=== PATIENT | male | born 1935 | race Caucasian/White ===

== ENCOUNTER 2017-12-22 06:17 | Outpatient (CLI) | payer MEDICARE ==
[~2017-12-22] VITALS: Ht 180.3 cm; Wt 97.1 kg
[~2017-12-22 06:17] MED LIST: ALDACTONE25 MG PO; ALFU10TA11 PO; AMLO5TAB2 PO; ASP81CT PO; ASPI-587 PO; ATR20T; BACL10TA PO; CA C1TAB26 PO; CIPR-225 PO; CLOP75TA PO; CLPD75T PO; CNC1KV IJ; DOXY100C2 PO; ENAL10TA PO; ENAL5TAB PO; FAMO20TA5; FERR325T18 PO; FISH OIL 1,2001 EAC1 PO; FISH1CAP15 PO; FLC100T1 PO; FLC1T PO; FLUT16SP22 NS; GABA-488 PO; GBPN100C PO; HYDR-3583 PO; KCL10CCR; LEVO500T69 PO; LORA10TA76 PO; METO100T5 PO; METO50TA7 PO; MULT-608; MULT1CAP27 PO; MUPI1OIN5 NS; NAPR220T76; NYST1000 PO; OMEG1CAP58 PO; OMEP40CA36 PO; OXYC-465 PO; OXYM15MI4 NS; PANT40TA PO; PRD20T PO; RNT150T PO; SIMV20TA3 PO; SIMV40TA4 PO; TMSL.4C PO; VITAMIN B12; ZINC50TA51 PO
[2017-12-22] MEDS ORDERED: ASPI-586 PO (15:07)
[2017-12-22] MEDS ORDERED: MULT1TAB69 PO (15:07)
[2017-12-22] MEDS ORDERED: FOLI1TAB24 PO (15:07)
[2017-12-22] MEDS ORDERED: OMEG-109 PO (15:07)
[2017-12-22] MEDS ORDERED: PANT40TA3 PO (15:07)
[2017-12-22] MEDS ORDERED: ALFU10TA11 PO (15:07)
[2017-12-22] MEDS ORDERED: CLOP75TA28 PO (15:07)
[2017-12-22] MEDS ORDERED: CHOL10003 PO (15:07)
[2017-12-22] MEDS ORDERED: METO-395 PO (15:07)
== END 2017-12-22 15:08 ==
LOC: PREOP 06:17
PROVIDERS: ATTEND Internal Medicine
DX: Z01.818 Encounter for other preprocedural examination (principal); R11.0 Nausea; Z80.0 Family history of malignant neoplasm of digestive organs

== ENCOUNTER 2017-12-26 08:19 | Day surgery (SDC) | payer MEDICARE ==
--- NOTE | 2017-12-19 13:32 | HISTORY AND PHYSICAL ---
DATE OF SERVICE: ESOPHAGOGASTRODUODENOSCOPY HISTORY AND PHYSICAL DATE OF ADMISSION: 12/26/2017 REASON FOR ADMISSION: EGD. HISTORY OF PRESENT ILLNESS: The patient is an 82-year-old white male seen in the office on 12/18/2017 for followup of coronary artery disease, hypertension and a past history of colon cancer. He reports for the past several months he has been having nausea and he cannot associate it with meal timing or medication and there have been no recent changes in his medication. He is fearful of gastric cancer as there is a family history for gastric cancer. He has had no associated dysphagia but over the past month, his appetite is decreased and his weight is down 2 pounds. He has not noted any melena or bright red blood per rectum. Risk factors for ulcer disease include dual antiplatelet therapy in the form of a baby aspirin and Plavix daily. He has had no anginal sounding symptoms. He is still walking on a regular basis with no dyspnea on exertion or at rest. PAST MEDICAL HISTORY: Significant for coronary artery disease. He had moderate nonobstructive disease, three vessel, on cardiac catheterization in 2011. He has had longstanding hypertension that has been well controlled and hyperlipidemia, maintained on statin therapy. He has a history of complete heart block requiring pacemaker placement several years ago. He has had one episode of congestive heart failure secondary to systolic dysfunction likely related to hypertension and small vessel ischemia. He had an ejection fraction once was down to 40% but when last checked he is back up to 50% range. MEDICATIONS ON ADMISSION: Include aspirin 81 mg daily, Plavix 75 mg daily, fish oil 1200 mg daily, enalapril 10 mg daily, vitamin D 1000 units daily, folic acid 1 mg daily, simvastatin 20 mg daily, amlodipine 5 mg daily, metoprolol 100 mg b.i.d., pantoprazole 40 mg daily, gabapentin 300 mg at bedtime. He has a B12 injection monthly for B12 deficiency and alfuzosin 10 mg daily. PHYSICAL EXAMINATION: GENERAL: Reveals a pleasant overweight white male, down 2 pounds in the past month. VITAL SIGNS: Blood pressure 136/80. NECK: Revealed no JVD, adenopathy or bruits. HEENT: Unremarkable. Sclerae are nonicteric. Oral cavity reveals Mallampati class 2 configuration. CHEST: Clear. CARDIOVASCULAR: Reveals a regular rate and rhythm without murmur, S3 or S4. ABDOMEN: Soft, supple. There is some mild epigastric discomfort to palpation without rebound or guarding. No mass or organomegaly is noted. Bowel sounds are positive. No bruits are appreciated. EXTREMITIES: Reveal no cyanosis, clubbing or edema. ASSESSMENT AND PLAN: For evaluation of nausea, epigastric pain to palpation, recent weight loss in an individual with risk factors for GI tract malignancy in addition to known past colon cancer as well as peptic ulcer disease due to dual antiplatelet therapy, he is set up for EGD on the of this month. Prep instructions were given. He is to hold aspirin and Plavix for a week prior to the procedure and continue his other medications. Job ID: [id number] DocumentID: [id number] Dictated Date: 12/18/2017 16:26:35 Soaking Tank Worker Date: 12/18/2017 16:49:10 Dictated By: ARMINDA LAUREANO MD
[~2017-12-26] VITALS: Ht 180.3 cm; Wt 97.1 kg
[~2017-12-26 08:19] MED LIST changes: +ASPI-586 PO; +CHOL10003 PO; +CLOP75TA28 PO; +FOLI1TAB24 PO; +METO-395 PO; +MULT1TAB69 PO; +OMEG-109 PO; +PANT40TA3 PO
--- OUTSIDE RECORDS SUMMARY | 2017-12-26 08:22 | XMS REPORT ---
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
[2017-12-26] MEDS ORDERED: LIDOCAINE JELLY 2% (XYLOCAINE) 5 ML TUBE MM PRN (08:30)
[2017-12-26] MEDS ORDERED: HURRICAINE EXT TUBE (BENZOCAINE) XX PRN (08:30)
[2017-12-26] MEDS ORDERED: MIDAZOLAM 2 MG/2 ML (VERSED) VIAL IVP PRN (08:30)
[2017-12-26] MEDS ORDERED: D5 LR IV SOLUTION 1,000 ML IV ONE ×2 (08:35→09:15)
--- NOTE | 2017-12-26 08:39 | Pre-Op Note & Conscious Sedat ---
Pre-Operative Progress Note H&P Reviewed The H&P was reviewed, patient examined and no changes noted. Date H&P Reviewed: Dec 26, 2017 Time H&P Reviewed: 08:35 Conscious Sedation Pre-Proced ASA Class: 2 Airway Mallampati Classification: ([place] appropriate class) I. II. III, IV Lungs Heart ASA score ASA 1: a normal healthy patient ASA 2: a patient with a mild systemic disease (mid diabetes, controlled hypertension, obesity ASA 3: a patient with a severe systemic disease that limits activity (angina , COPD, prior Myocardial infarction) ASA 4: a patient with an incapacitating disease that is a constant threat to life (CHF, renal failure) ASA 5: a moribund patient not expected to survive 24 hrs. (ruptured aneurysm) ASA 6: a declared brain patient whose organs are being harvested. For emergent operations, add the letter E after the classification Grade 2 Sedation Plan: Analgesia, Amnesia, Plan communicated to team members, Discussed options with patient/fam, Discussed risks with patient/fam Note The patient is an appropriate candidate to undergo the planned procedure, sedation, and anesthesia. The patient immediately re-assessed prior to indication. ARMINDA LAUREANO MD Dec 26, 2017 08:39
[2017-12-26 09:13] VITALS: BP 141/82
[2017-12-26] MEDS ORDERED: MIDAZOLAM 2 MG/2 ML (VERSED) VIAL ONE ×2 (09:28)
[2017-12-26] MEDS ORDERED: fentaNYL INJECTION 100 MCG/2 ML AMP ONE (09:28)
[2017-12-26] MEDS ORDERED: HURRICAINE EXT TUBE (BENZOCAINE) ONE (09:28)
[2017-12-26] MEDS ORDERED: LIDOCAINE JELLY 2% (XYLOCAINE) 5 ML TUBE ONE (09:29)
[2017-12-26] MEDS: fentaNYL INJECTION 100 MCG/2 ML AMP IVP PRN ×2 (09:38→09:50)
[2017-12-26] MEDS ORDERED: FLUC200T PO (09:57)
[2017-12-26] MEDS ORDERED: methylPREDNISolone 40 MG/ML (DEPO MEDROL) VIAL IM ONE (10:00)
[2017-12-26] MEDS ORDERED: LIDOCAINE PF 1% 2 ML AMP INJ ONE (10:00)
[2017-12-26] MEDS ORDERED: LIDOCAINE PF 1% 2 ML AMP ONE (10:21)
[2017-12-26 10:46] VITALS: BP 140/82
[2017-12-26 10:50] VITALS: BP 140/82
--- NOTE | 2017-12-26 15:12 | OPERATIVE REPORT ---
DATE OF SERVICE: 12/26/2017 ASSESSMENT: Post EGD evaluation done today. The patient had findings compatible with candidal esophagitis. I reviewed his office records as well as electronic medical record noting that he does have a history of insulin resistance. His last blood sugar in our office was 110 in 03/2017 with an A1c of 5.6%. Since that time, he is put on at least 6 pounds and does have a BMI in the 30 to 35 range compatible with stage I obesity. I discussed my concerns in regards to the development of diabetes considering candidal esophagitis. The patient does not have any past history of compromised immune system and has not had any problems with infection over the winter time. He has been eating ice cream nightly, which is largely responsible for his weight gain and discussed the fact that his esophagitis raises the possibility of development of type 2 diabetes. Otherwise, he has an average diet that is still a little higher in carbohydrate and lower in whole foods than ideal. This was discussed in layman's terms and advised that he significantly cut back on his ice cream intake and increase fruits and vegetables as well as decreasing simple sugars and portion controlling other carbohydrates. Discussed a reasonable goal of 1 to 2-pound weight loss per month. He already exercises on a regular basis, walking several miles daily. He is to return to the office next week for a fasting basic metabolic panel and CBC with further recommendations pending blood test evaluation. In discussing diabetic diet and obesity issues with review of his medical record a little over 15 minutes extra care time spent today. This is separate from his EGD evaluation as well as the injection he received for supratrochanteric bursitis, which was detailed on his EGD report. Job ID: [id number] DocumentID: [id number] Dictated Date: 12/26/2017 11:09:55 Weapons Engineer Date: 12/26/2017 15:11:43 Dictated By: ARMINDA LAUREANO MD
--- NOTE | 2017-12-26 16:13 | OPERATIVE REPORT ---
DATE OF SERVICE: REPORT TITLE: EGD Summary. INDICATION FOR THE PROCEDURE: Dysphagia. The patient was placed in left lateral decubitus position. The endoscope was inserted in the oral cavity and under direct visualization, the esophagus was intubated. The endoscope was passed down the esophagus through the stomach and second portion of the duodenum. Careful inspection was made as the endoscope was withdrawn. The patient tolerated the procedure well. FINDINGS: The oral cavity was unremarkable as was the arytenoid aperture, true and false vocal folds. Beginning in the proximal esophagus, where patchy areas of white exudate on minimally erythematous base extending to the distal esophagus. No ulcerations were noted and there was no evidence for hiatal hernia formation or erosive esophagitis. The cardia and fundus of the stomach were unremarkable. There were some linear areas of erythema in the antrum, but the patient had been on aspirin and Plavix and all of that had been held. Biopsy was not obtained. There was no ulceration noted as risk deemed outweighed the potential benefits. The pylorus, pyloric channel, the duodenal bulb and second portion of duodenum were unremarkable with no evidence for duodenitis or ulceration. A/P 1. Findings compatible with candidal esophagitis. Brushing was obtained and submitted for culture and sensitivity. Mild antral gastritis was noted without evidence for peptic ulcer disease or erosive esophagitis. Diflucan will be initiated 200 mg daily and we will hold Plavix due to medication interaction for the 2 week period that the patient is on antifungal therapy. The patient also complained of left lateral hip pain. He cannot sleep on that side at night. He has tried ice and is not a candidate for nonsteroidal medication. Tylenol has been ineffective. He had point tenderness over the left supratrochanteric bursa, compatible with supratrochanteric bursitis. There was no warmth or erythema noted over the area. Hip range of motion was normal. After sterilely cleaning the area, he was given 40 mg of Depo-Medrol and 0.5 mL of lidocaine in a left supratrochanteric bursal injection. Expectations were discussed with the patient, advised gentle stretching and p.r.n. ice. Job ID: [id number] DocumentID: [id number] Dictated Date: 12/26/2017 10:10:44 Director Of Scientific Research Date: 12/26/2017 13:36:33 Dictated By: ARMINDA LAUREANO MD
== END 2017-12-26 10:55 | disposition home or self-care (01) ==
LOC: ENDO 08:19
PROVIDERS: ATTEND Internal Medicine
DX: B37.81 Candidal esophagitis (principal); K29.70 Gastritis, unspecified, without bleeding; M70.62 Trochanteric bursitis, left hip; I25.10 Atherosclerotic heart disease of native coronary artery without angina pectoris; I10 Essential (primary) hypertension; E78.5 Hyperlipidemia, unspecified; Z95.0 Presence of cardiac pacemaker; Z79.02 Long term (current) use of antithrombotics/antiplatelets; Z79.82 Long term (current) use of aspirin; Z79.899 Other long term (current) drug therapy
CPT/HCPCS: 87101

== ENCOUNTER 2018-01-29 17:02 | Emergency (ER) | payer MEDICARE ==
[~2018-01-29] VITALS: Ht 180.3 cm; Wt 96.2 kg
[~2018-01-29 17:02] MED LIST changes: +FLUC200T PO
--- OUTSIDE RECORDS SUMMARY | 2018-01-29 17:08 | XMS REPORT | Continuity of Care Document ---
Author Author [facility] Organization [facility] Address Unknown Phone Unavailable Allergies Active Description Code Type Severity Reaction Onset Reported/Identified Relationship to Patient Clinical Status Yes amoxicillin [id number] Drug Allergy Unknown N/A 01/16/2010 Medications There is no data. Problems Date Dx Coded Attending Type Code Diagnosis Diagnosed By 01/17/2010 Ot 272.4 HYPERLIPIDEMIA NEC/NOS 01/17/2010 Ot 401.9 HYPERTENSION NOS 01/17/2010 Ot 414.01 CORONARY ATHEROSCLEROSIS OF [place] CORON 01/17/2010 Ot 426.0 ATRIOVENT BLOCK COMPLETE 01/17/2010 Ot 426.3 LEFT BB BLOCK NEC 01/17/2010 Ot 428.0 CONGESTIVE HEART FAILURE NOS 01/17/2010 Ot 433.10 CAROTID ARTERY OCCLUSION W O CEREBRAL IN 09/20/2010 Ot 305.1 09/20/2010 Ot 401.9 09/20/2010 Ot 722.52 09/20/2010 Ot V45.01 09/20/2010 Ot V57.1 02/07/2011 Ot 368.8 02/07/2011 Ot 412 02/07/2011 Ot 414.01 02/07/2011 Ot 780.4 02/07/2011 Ot 780.79 07/19/2011 Ot 211.3 BENIGN NEOPLASM LG BOWEL 07/19/2011 Ot 553.3 DIAPHRAGMATIC HERNIA 07/19/2011 Ot 787.20 DYSPHAGIA, UNSPECIFIED 07/19/2011 Ot V16.0 FAMILY HX-GI MALIGNANCY 08/16/2011 Ot 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 08/16/2011 Ot 211.3 BENIGN NEOPLASM LG BOWEL 08/16/2011 Ot 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 08/16/2011 Ot 401.9 HYPERTENSION NOS 08/16/2011 Ot 414.01 CORONARY ATHEROSCLEROSIS OF [place] CORON 08/16/2011 Ot V12.72 PERSONAL HISTORY OF COLONIC POLYPS 08/16/2011 Ot V45.01 CARDIAC PACEMAKER IN SITU 09/11/2011 Ot 532.10 AC DUODENAL ULCER W PERF 09/11/2011 Ot 569.5 INTESTINAL ABSCESS 09/11/2011 Ot 574.00 CHOLELITH W AC CHOLECYST 09/11/2011 Ot V45.89 POSTSURGICAL STATES NEC 09/11/2011 Ot V64.41 LAPAROSCOPIC SURGICAL PROC CONVERTED TO 02/15/2012 Ot 272.4 HYPERLIPIDEMIA NEC/NOS 02/15/2012 Ot 401.9 HYPERTENSION NOS 02/15/2012 Ot 414.01 CORONARY ATHEROSCLEROSIS OF [place] CORON 02/15/2012 Ot 426.0 ATRIOVENT BLOCK COMPLETE 02/15/2012 Ot 428.0 CONGESTIVE HEART FAILURE NOS 02/15/2012 Ot 780.2 SYNCOPE AND COLLAPSE 02/15/2012 Ot 794.30 ABN CARDIOVASC STUDY NOS 02/15/2012 Ot V10.05 HX OF COLONIC MALIGNANCY 02/15/2012 Ot V45.01 CARDIAC PACEMAKER IN SITU 02/15/2012 Ot V58.63 LONG-TERM( CURRENT)USE OF ANTIPLATELET/AN 02/15/2012 Ot V58.66 LONG-TERM ( CURRENT) USE OF ASPIRIN 02/15/2012 Ot V58.69 OTH MED,LT, CURRENT USE 07/27/2012 Ot 530.81 ESOPHAGEAL REFLUX 07/27/2012 Ot 562.10 DIVERTICULOSIS COLON (W/O MENT OF HEMORR 07/27/2012 Ot V10.05 HX OF COLONIC MALIGNANCY 07/27/2012 Ot V58.63 LONG-TERM( CURRENT)USE OF ANTIPLATELET/AN 07/27/2012 Ot V58.66 LONG-TERM ( CURRENT) USE OF ASPIRIN 07/27/2012 Ot V58.69 OTH MED,LT, CURRENT USE 07/27/2012 Ot V76.51 SCREEN MAL NEOP-COLON 07/20/2013 ARMINDA LAUREANO MD Ot 535.50 UNSP GASTRITIS GASTRODUODENITIS W/O ME 07/20/2013 ARMINDA LAUREANO MD Ot V58.63 LONG-TERM(CURRENT)USE OF ANTIPLATELET/AN 07/20/2013 ARMINDA LAUREANO MD Ot V58.66 LONG-TERM (CURRENT) USE OF ASPIRIN 04/05/2014 ARMINDA LAUREANO MD Ot 211.3 BENIGN NEOPLASM LG BOWEL 04/05/2014 ARMINDA LAUREANO MD Ot 562.10 DIVERTICULOSIS COLON (W/O MENT OF HEMORR 04/05/2014 ARMINDA LAUREANO MD Ot V10.05 HX OF COLONIC MALIGNANCY 11/01/2014 Ot 272.4 11/01/2014 Ot 397.0 11/01/2014 Ot 424.0 11/01/2014 Ot 429.3 11/01/2014 Ot 780.2 11/01/2014 Ot V72.81 11/01/2014 Ot V74.8 11/01/2014 Ot 368.8 11/01/2014 Ot 412 11/01/2014 Ot 414.01 11/01/2014 Ot 780.4 11/01/2014 Ot 780.79 11/01/2014 Ot 414.00 11/01/2014 Ot 786.50 11/01/2014 Ot 397.0 11/01/2014 Ot 414.00 11/01/2014 Ot 424.0 11/01/2014 Ot 429.3 11/01/2014 Ot 786.50 11/01/2014 Ot 211.3 11/01/2014 Ot V72.63 11/01/2014 Ot V74.8 11/01/2014 Ot 789.01 11/01/2014 Ot V45.72 11/01/2014 Ot 599.0 11/01/2014 Ot 401.9 11/01/2014 Ot 414.00 11/01/2014 Ot 427.1 11/01/2014 Ot 428.0 11/01/2014 Ot 401.9 11/01/2014 Ot 414.00 11/01/2014 Ot 427.1 11/01/2014 Ot 428.0 11/01/2014 Ot 272.4 11/01/2014 Ot 401.9 11/01/2014 Ot 414.01 11/01/2014 Ot 426.2 11/01/2014 Ot 428.0 11/01/2014 Ot 780.2 11/01/2014 Ot 791.9 11/01/2014 Ot 794.39 11/01/2014 Ot V72.63 11/01/2014 Ot V72.81 11/01/2014 Ot V72.84 11/01/2014 Ot 397.0 11/01/2014 Ot 401.9 11/01/2014 Ot 424.0 11/01/2014 Ot 426.3 11/01/2014 Ot 428.0 11/01/2014 Ot V45.01 11/01/2014 GEORGI NORTON, ARMINDA [place] Ot V72.84 11/01/2014 NARAYAN NORTON, VERONICA Javed Ot 272.4 11/01/2014 VERONICA BUSCH MD Ot 401.9 11/01/2014 VERONICA BUSCH MD Ot 414.00 11/01/2014 VERONICA BUSCH MD Ot 426.0 11/01/2014 VERONICA BUSCH MD Ot 426.3 11/01/2014 VERONICA BUSCH MD Ot 433.10 11/01/2014 ARMINDA LAUREANO MD Ot 780.8 11/01/2014 ARMINDA LAUREANO MD Ot 791.9 11/01/2014 ARMINDA LAUREANO MD Ot V72.84 11/23/2014 VERONICA BUSCH MD Ot 272.4 11/23/2014 VERONICA BUSCH MD Ot 401.9 11/23/2014 VERONICA BUSCH MD Ot 414.00 11/23/2014 VERONICA BUSCH MD Ot 428.0 11/23/2014 VERONICA BUSCH MD Ot 433.10 01/12/2015 DANICA HANSON MD Ot 401.9 HYPERTENSION NOS 01/12/2015 DANICA HANSON MD Ot 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 01/12/2015 DANICA HANSON MD Ot 722.52 LUMB/LUMBOSAC DISC DEGEN 01/12/2015 DANICA HANSON MD Ot 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 01/12/2015 DANICA HANSON MD, Ot V45.4 ARTHRODESIS STATUS 01/12/2015 DANICA HANSON MD Ot V58.66 LONG-TERM (CURRENT) USE OF ASPIRIN 01/12/2015 DANICA HANSON MD, Ot V58.69 OT MED,LT,CURRENT USE 05/30/2015 DANICA HANSON MD Ot 401.9 HYPERTENSION NOS 05/30/2015 DANICA HANSON MD Ot 412 OLD MYOCARDIAL INFARCT 05/30/2015 DANICA HANSON MD Ot 427.9 CARDIAC DYSRHYTHMIA NOS 05/30/2015 DANICA HANSON MD Ot 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, LUMBAR REGION, W NEUROG 05/30/2015 DANICA HANSNO MD Ot V10.05 HX OF COLONIC MALIGNANCY 05/30/2015 DANICA HANSON MD Ot V45.01 CARDIAC PACEMAKER IN SITU 06/04/2015 SLADE NORTON, ANEUDY Cagle Ot 564.00 UNSPEC CONSTIPATION 06/04/2015 SLADE NORTON, ANEUDY Cagle Ot 599.0 URIN TRACT INFECTION NOS 07/21/2015 DANICA HANSON MD Ot 401.9 07/21/2015 DANICA HANSON MD Ot 412 07/21/2015 DANICA HANSON MD Ot 427.9 07/21/2015 DANICA HANSON MD Ot 724.03 07/21/2015 DANICA HANSON MD Ot V10.05 07/21/2015 DANICA HANSON MD Ot V45.01 10/10/2015 Ot 789.01 10/10/2015 Ot V45.72 06/12/2016 VERONICA BUSCH MD Ot E78.5 HYPERLIPIDEMIA, UNSPECIFIED 06/12/2016 VERONICA BUSCH MD Ot I10 ESSENTIAL (PRIMARY) HYPERTENSION 06/12/2016 VERONICA BUSCH MD Ot I25.10 ATHSCL HEART DISEASE OF [place] CORONARY 06/12/2016 VERONICA BUSCH MD Ot I27.2 OTHER SECONDARY PULMONARY HYPERTENSION 06/12/2016 VERONICA BUSCH MD Ot I44.2 ATRIOVENTRICULAR BLOCK, COMPLETE 06/12/2016 VERONICA BUSCH MD Ot I50.22 CHRONIC SYSTOLIC (CONGESTIVE) HEART FAIL 06/12/2016 VERONICA BUSCH MD Ot R07.89 OTHER CHEST PAIN 06/12/2016 VERONICA BUSCH MD Ot R94.39 ABNORMAL RESULT OF OTHER CARDIOVASCULAR 06/12/2016 VERONICA BUSCH MD Ot Z79.899 OTHER OVERHEAD WORKER (CURRENT) DRUG THERAPY 06/12/2016 VERONICA BUSCH MD Ot Z95.0 PRESENCE OF CARDIAC PACEMAKER 06/19/2016 VERONICA BUSCH MD Ot E78.5 HYPERLIPIDEMIA, UNSPECIFIED 06/19/2016 VERONICA BUSCH MD Ot I10 ESSENTIAL (PRIMARY) HYPERTENSION 06/19/2016 VERONICA BUSCH MD Ot I25.10 ATHSCL HEART DISEASE OF [place] CORONARY 06/19/2016 VERONICA BUSCH MD Ot I50.9 HEART FAILURE, UNSPECIFIED 06/19/2016 VERONICA BUSCH MD Ot R07.89 OTHER CHEST PAIN 06/26/2016 VERONICA BUSCH MD Ot E78.5 HYPERLIPIDEMIA, UNSPECIFIED 06/26/2016 VERONICA BUSCH MD Ot I10 ESSENTIAL (PRIMARY) HYPERTENSION 06/26/2016 VERONICA BUSCH MD Ot I25.10 ATHSCL HEART DISEASE OF [place] CORONARY 06/26/2016 VERONICA BUSCH MD Ot I50.9 HEART FAILURE, UNSPECIFIED 06/26/2016 VERONICA BUSCH MD Ot R07.89 OTHER CHEST PAIN 09/04/2016 ARMINDA LAUREANO MD Ot Z01.818 ENCOUNTER FOR OTHER PREPROCEDURAL EXAMIN 09/04/2016 ARMINDA LAUREANO MD Ot Z08 ENCNTR FOR FOLLOW-UP EXAM AFTER TRTMT FO 09/04/2016 ARMINDA LAUREANO MD Ot Z85.038 PERSONAL HISTORY OF MALIGNANT NEOPLASM O 09/06/2016 Ot 414.00 CORON ATHEROSCLER NOS TYPE VESSEL, NATIV 09/06/2016 Ot 786.50 CHEST PAIN NOS 09/06/2016 Ot 211.3 BENIGN NEOPLASM LG BOWEL 09/06/2016 Ot V72.63 PRE- PROCEDURAL LABORATORY EXAMINATION 09/06/2016 Ot V74.8 SCREEN- BACTERIAL DIS NEC 09/06/2016 Ot 789.01 ABDOMINAL PAIN, RIGHT UPPER QUADRANT 09/06/2016 Ot V45.72 ACQRD ABSENCE INTESTINE - LARGE/SMALL 09/06/2016 Ot 599.0 URIN TRACT INFECTION NOS 09/06/2016 Ot 401.9 HYPERTENSION NOS 09/06/2016 Ot 414.00 CORON ATHEROSCLER NOS TYPE VESSEL, NATIV 09/06/2016 Ot 427.1 PAROX VENTRIC TACHYCARD 09/06/2016 Ot 428.0 CONGESTIVE HEART FAILURE NOS 09/06/2016 Ot 401.9 HYPERTENSION NOS 09/06/2016 Ot 414.00 CORON ATHEROSCLER NOS TYPE VESSEL, NATIV 09/06/2016 Ot 427.1 PAROX VENTRIC TACHYCARD 09/06/2016 Ot 428.0 CONGESTIVE HEART FAILURE NOS 09/06/2016 Ot 272.4 HYPERLIPIDEMIA NEC/NOS 09/06/2016 Ot 401.9 HYPERTENSION NOS 09/06/2016 Ot 414.01 CORONARY ATHEROSCLEROSIS OF [place] CORON 09/06/2016 Ot 426.2 LEFT BB HEMIBLOCK 09/06/2016 Ot 428.0 CONGESTIVE HEART FAILURE NOS 09/06/2016 Ot 780.2 SYNCOPE AND COLLAPSE 09/06/2016 Ot 791.9 ABN URINE FINDINGS NEC 09/06/2016 Ot 794.39 ABN CARDIOVASC STUDY NEC 09/06/2016 Ot V72.63 PRE- PROCEDURAL LABORATORY EXAMINATION 09/06/2016 Ot V72.81 EXAM-PRE- OPERATIVE CARDIOVASCULAR 09/06/2016 Ot V72.84 EXAM PRE- OPERATIVE NOS 09/06/2016 Ot 397.0 TRICUSPID VALVE DISEASE 09/06/2016 Ot 401.9 HYPERTENSION NOS 09/06/2016 Ot 424.0 MITRAL VALVE DISORDER 09/06/2016 Ot 426.3 LEFT BB BLOCK NEC 09/06/2016 Ot 428.0 CONGESTIVE HEART FAILURE NOS 09/06/2016 Ot V45.01 CARDIAC PACEMAKER IN SITU 09/06/2016 ARMINDA LAUREANO MD Ot V72.84 EXAM PRE-OPERATIVE NOS 09/06/2016 VERONICA BUSCH MD Ot 272.4 HYPERLIPIDEMIA NEC/NOS 09/06/2016 VERONICA BUSCH MD Ot 401.9 HYPERTENSION NOS 09/06/2016 VERONICA BUSCH MD Ot 414.00 CORON ATHEROSCLER NOS TYPE VESSEL, NATIV 09/06/2016 VERONICA BUSCH MD Ot 426.0 ATRIOVENT BLOCK COMPLETE 09/06/2016 VERONICA BUSCH MD Ot 426.3 LEFT BB BLOCK NEC 09/06/2016 VERONICA BUSCH MD Ot 433.10 CAROTID ARTERY OCCLUSION W O CEREBRAL IN 09/06/2016 ARMINDA LAUREANO MD Ot 780.8 GENERALIZED HYPERHIDROSIS 09/06/2016 ARMINDA LAUREANO MD Ot 791.9 ABN URINE FINDINGS NEC 09/06/2016 ARMINDA LAUREANO MD Ot V72.84 EXAM PRE-OPERATIVE NOS 09/06/2016 VERONICA BUSCH MD Ot 272.4 HYPERLIPIDEMIA NEC/NOS 09/06/2016 VERONICA BUSCH MD Ot 401.9 HYPERTENSION NOS 09/06/2016 VERONICA BUSCH MD Ot 414.00 CORON ATHEROSCLER NOS TYPE VESSEL, [place] 09/06/2016 VERONICA BUSCH MD Ot 428.0 CONGESTIVE HEART FAILURE NOS 09/06/2016 VERONICA BUSCH MD Ot 433.10 CAROTID ARTERY OCCLUSION W O CEREBRAL IN 09/06/2016 VERONICA BUSCH MD Ot 272.4 HYPERLIPIDEMIA NEC/NOS 09/06/2016 VERONICA BUSCH MD Ot 401.9 HYPERTENSION NOS 09/06/2016 VERONICA BUSCH MD Ot 414.00 CORON ATHEROSCLER NOS TYPE VESSEL, NATIV 09/06/2016 VERONICA BUSCH MD Ot 428.0 CONGESTIVE HEART FAILURE NOS 09/06/2016 VERONICA BUSCH MD Ot 433.10 CAROTID ARTERY OCCLUSION W O CEREBRAL IN 09/06/2016 DANICA HANSON MD Ot 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, LUMBAR REG, W/OUT NEURO 09/06/2016 DANICA HANSON MD Ot V72.84 EXAM PRE-OPERATIVE NOS 09/06/2016 DANICA HANSON MD Ot V74.8 SCREEN-BACTERIAL DIS NEC 09/06/2016 VERONICA BUSCH MD, Ot E78.5 HYPERLIPIDEMIA, UNSPECIFIED 09/06/2016 VERONICA BUSCH MD Ot I10 ESSENTIAL (PRIMARY) HYPERTENSION 09/06/2016 VERONICA BUSCH MD, Ot I25.10 ATHSCL HEART DISEASE OF [place] CORONARY 09/06/2016 VERONICA BUSCH MD Ot I50.9 HEART FAILURE, UNSPECIFIED 09/06/2016 VERONICA BUSCH MD Ot R07.89 OTHER CHEST PAIN 09/06/2016 ARMINDA LAUREANO MD Ot D12.0 BENIGN NEOPLASM OF [place] 09/06/2016 ARMINDA LAUREANO MD, Ot K57.30 DVRTCLOS OF LG INT W/O PERFORATION OR AB 09/06/2016 ARMINDA LAUREANO MD, Ot N40.0 BENIGN PROSTATIC HYPERPLASIA WITHOUT LOW 09/06/2016 ARMINDA LAUREANO MD Ot Z12.11 ENCOUNTER FOR SCREENING FOR MALIGNANT NE 09/06/2016 ARMINDA LAUREANO MD Ot Z85.038 PERSONAL HISTORY OF MALIGNANT NEOPLASM O 09/06/2016 ARMINDA LAUREANO MD Ot 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 09/12/2016 ARMINDA LAUREANO MD, Ot D12.0 BENIGN NEOPLASM OF [place] 09/12/2016 ARMINDA LAUREANO MD, Ot K57.30 DVRTCLOS OF LG INT W/O PERFORATION OR AB 09/12/2016 ARMINDA LAUREANO MD, Ot N40.0 BENIGN PROSTATIC HYPERPLASIA WITHOUT LOW 09/12/2016 ARMINDA LAUREANO MD Ot Z12.11 ENCOUNTER FOR SCREENING FOR MALIGNANT NE 09/12/2016 ARMINDA LAUREANO MD, Ot Z85.038 PERSONAL HISTORY OF MALIGNANT NEOPLASM O 09/12/2016 ARMINDA LAUREANO MD Ot 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 12/23/2017 ARMINDA LAUREANO MD Ot R11.0 NAUSEA 12/23/2017 ARMINDA LAUREANO MD Ot Z01.818 ENCOUNTER FOR OTHER PREPROCEDURAL EXAMIN 12/23/2017 ARMINDA LAUREANO MD Ot Z80.0 FAMILY HISTORY OF MALIGNANT NEOPLASM OF 12/26/2017 ARMINDA LAUREANO MD Ot B37.81 CANDIDAL ESOPHAGITIS 12/26/2017 ARMINDA LAUREANO MD Ot E78.5 HYPERLIPIDEMIA, UNSPECIFIED 12/26/2017 ARMINDA LAUREANO MD Ot I10 ESSENTIAL (PRIMARY) HYPERTENSION 12/26/2017 ARMINDA LAUREANO MD Ot I25.10 ATHSCL HEART DISEASE OF [place] CORONARY 12/26/2017 ARMINDA LAUREANO MD Ot K29.70 GASTRITIS, UNSPECIFIED, WITHOUT BLEEDING 12/26/2017 ARMINDA LAUREANO MD Ot M70.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 BURSITIS, LEFT HIP 12/26/2017 ARMINDA LAUREANO MD Ot Z79.02 HALFWAY (CURRENT) USE OF ANTITHROMBOTI 12/26/2017 ARMINDA LAUREANO MD Ot Z79.82 HALFWAY (CURRENT) USE OF ASPIRIN 12/26/2017 ARMINDA LAUREANO MD Ot Z79.899 OTHER HALFWAY (CURRENT) DRUG THERAPY 12/26/2017 ARMINDA LAUREANO MD Ot Z95.0 PRESENCE OF CARDIAC PACEMAKER 12/29/2017 ARMINDA LAUREANO MD Ot B37.81 CANDIDAL ESOPHAGITIS 12/29/2017 ARMINDA LAUREANO MD Ot E78.5 HYPERLIPIDEMIA, UNSPECIFIED 12/29/2017 ARMINDA LAUREANO MD Ot I10 ESSENTIAL (PRIMARY) HYPERTENSION 12/29/2017 ARMINDA LAUREANO MD Ot I25.10 ATHSCL HEART DISEASE OF [place] CORONARY 12/29/2017 ARMINDA LAUREANO MD Ot K29.70 GASTRITIS, UNSPECIFIED, WITHOUT BLEEDING 12/29/2017 ARMINDA LAUREANO MD Ot M70.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 BURSITIS, LEFT HIP 12/29/2017 ARMINDA LAUREANO MD Ot Z79.02 HALFWAY (CURRENT) USE OF ANTITHROMBOTI 12/29/2017 ARMINDA LAUREANO MD Ot Z79.82 HALFWAY (CURRENT) USE OF ASPIRIN 12/29/2017 ARMINDA LAUREANO MD Ot Z79.899 OTHER HALFWAY (CURRENT) DRUG THERAPY 12/29/2017 ARMINDA LAUREANO MD Ot Z95.0 PRESENCE OF CARDIAC PACEMAKER Procedures Code Description Performed By Performed On 37.72 INITIAL INSERT TRANS LEADS INTO ATRIUM 01/16/2010 37.83 INITIAL INSERTION OF DUAL- CHAMBER DEVICE 01/16/2010 89.45 PACEMAKER RATE CHECK 01/17/2010 17.33 LAPAROSCOPIC RIGHT HEMICOLECTOMY 08/13/2011 45.93 [id number] BOWEL NEC 08/13/2011 54.4 DESTRUCT PERITONEAL TISS 08/13/2011 38.93 VENOUS CATHETERIZATION NEC 08/30/2011 44.42 SUTURE DUODEN ULCER SITE 08/30/2011 51.23 LAPAROSCOPIC CHOLECYSTECTOMY 08/30/2011 87.53 INTRAOPER CHOLANGIOGRAM 08/30/2011 Results Test Result Range Automated blood complete blood count (hemogram) panel - 06/12/16 07:24 Blood leukocytes automated count (number/volume) 7.5 10*3/uL 4.3-11.0 Blood erythrocytes automated count (number/volume) 5.28 10*6/uL 4.35-5.85 Venous blood hemoglobin measurement (mass/volume) 15.8 g/dL 13.3-17.7 Blood hematocrit (volume fraction) 48 % 40-54 Automated erythrocyte mean corpuscular volume 90 [foz_us] 80-99 Automated erythrocyte mean corpuscular hemoglobin (mass per erythrocyte) 30 pg 25-34 Automated erythrocyte mean corpuscular hemoglobin concentration measurement ( mass/volume) 33 g/dL 32-36 Automated erythrocyte distribution width ratio 15.9 % 10.0-14.5 Automated blood platelet count (count/volume) 99 10*3/uL 130-400 Automated blood platelet mean volume measurement 10.7 [foz_us] 7.4-10.4 PT panel in platelet poor plasma by coagulation assay - 06/12/16 07:24 Prothrombin time (PT) in platelet poor plasma by coagulation assay 14.1 s 12.2-14.7 INR in platelet poor plasma or blood by coagulation assay 1.1 0.8-1.4 Activated partial thromboplastin time (aPTT) in platelet poor plasma bycoagulation assay - 06/12/16 07:24 Activated partial thromboplastin time (aPTT) in platelet poor plasma bycoagulation assay 32 s 24-35 Comprehensive metabolic panel - 06/12/16 07:24 Serum or plasma sodium measurement (moles/volume) 141 mmol/L 135-145 Serum or plasma potassium measurement (moles/volume) 4.2 mmol/L 3.6-5.0 Serum or plasma chloride measurement (moles/volume) 108 mmol/L 98-107 Carbon dioxide 23 mmol/L 21-32 Serum or plasma anion gap determination (moles/volume) 10 mmol/L 5-14 Serum or plasma urea nitrogen measurement (mass/volume) 20 mg/dL 7-18 Serum or plasma creatinine measurement (mass/volume) 1.11 mg/dL 0.60-1.30 Serum or plasma urea nitrogen/creatinine mass ratio 18 NRG Serum or plasma creatinine measurement with calculation of estimated glomerular filtration rate > NRG Serum or plasma glucose measurement (mass/volume) 110 mg/dL 70-105 Serum or plasma calcium measurement (mass/volume) 9.6 mg/dL 8.5-10.1 Serum or plasma total bilirubin measurement (mass/volume) 0.8 mg/dL 0.1-1.0 Serum or plasma alkaline phosphatase measurement (enzymatic activity/volume) 75 U/L 40-136 Serum or plasma aspartate aminotransferase measurement (enzymatic activity/ volume) 24 U/L 5-34 Serum or plasma alanine aminotransferase measurement (enzymatic activity/volume ) 25 U/L 0-55 Serum or plasma protein measurement (mass/volume) 6.7 g/dL 6.4-8.2 Serum or plasma albumin measurement (mass/volume) 4.4 g/dL 3.2-4.5 Lipid 1996 panel - 06/12/16 07:24 Serum or plasma triglyceride measurement (mass/volume) 82 mg/dL <150 Serum or plasma cholesterol measurement (mass/volume) 133 mg/dL < 200 Serum or plasma cholesterol in HDL measurement (mass/volume) 38 mg/ dL 40-60 Cholesterol in LDL [mass/volume] in serum or plasma by direct assay 83 mg/dL 1-129 Serum or plasma cholesterol in VLDL measurement (mass/volume) 16 mg/ dL 5-40 Complete urinalysis with reflex to culture - 06/12/16 07:24 Urine color determination YELLOW NRG Urine clarity determination CLEAR NRG Urine pH measurement by test strip 5 5-9 Specific gravity of urine by test strip 1.015 1.016- 1.022 Urine protein assay by test strip, semi-quantitative 1+ NEGATIVE Urine glucose detection by automated test strip NEGATIVE NEGATIVE Erythrocytes detection in urine sediment by light microscopy 2+ NEGATIVE Urine ketones detection by automated test strip NEGATIVE NEGATIVE Urine nitrite detection by test strip NEGATIVE NEGATIVE Urine total bilirubin detection by test strip NEGATIVE NEGATIVE Urine urobilinogen measurement by automated test strip (mass/volume) NORMAL NORMAL Urine leukocyte esterase detection by dipstick 3+ NEGATIVE Automated urine sediment erythrocyte count by microscopy (number/high power field) [HPF] NRG Automated urine sediment leukocyte count by microscopy (number/high power field ) [HPF] NRG Bacteria detection in urine sediment by light microscopy TRACE NRG Squamous epithelial cells detection in urine sediment by light microscopy RARE NRG Crystals detection in urine sediment by light microscopy NONE NRG Casts detection in urine sediment by light microscopy NONE NRG Mucus detection in urine sediment by light microscopy MODERATE NRG Complete urinalysis with reflex to culture YES NRG Bacterial urine culture - 06/12/16 07:24 Bacterial urine culture [id number] NRG COLONY COUNT 10,000/ML - 100,000/ML NRG FTX;REPORTABLE SENSITIVITY REPORTED 06/14 09:35 NRG Methicillin resistant Staphylococcus aureus (MRSA) screening culture - 07:24 Methicillin resistant Staphylococcus aureus (MRSA) screening culture NEG NRG Bacterial susceptibility panel - 06/12/16 07:24 Gentamicin susceptibility test by minimum inhibitory concentration < = NRG Tobramycin susceptibility test by minimum inhibitory concentration < = NRG Piperacillin/tazobactam susceptibility test by minimum inhibitory concentration <= NRG Ciprofloxacin susceptibility test by minimum inhibitory concentration <= NRG Meropenem susceptibility test by minimum inhibitory concentration < = NRG Cefepime susceptibility test by minimum inhibitory concentration <= NRG Fungus culture - 12/26/17 09:58 QUANTITY OF GROWTH Isolated NRG FTX;REPORTABLE PLUS NORMAL PHI NRG Fungus culture [id number] NRG Encounters ACCT No. Visit Date/Time Discharge Status Pt. Type Provider Facility Loc./Unit Complaint [id number] 12/26/2017 08:19:00 12/26/2017 10:55:00 DIS Outpatient ARMINDA LAUREANO MD [facility] ENDO 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 [id number] 12/22/2017 06:17:00 12/22/2017 15:08:00 DIS Outpatient ARMINDA LAUREANO MD [facility] PREOP EGD [id number] 09/06/2016 08:26:00 09/06/2016 11:35:00 DIS Outpatient ARMINDA LAUREANO MD [facility] HISTORY COLON CANCER [id number] 09/04/2016 05:42:00 09/04/2016 14:33:00 DIS Outpatient ARMINDA LAUREANO MD [facility] PREOP HISTORY COLON CANCER [id number] 06/12/2016 06:56:00 06/12/2016 14:00:00 DIS Outpatient VERONICA BUSCH MD [facility] CATH CP,SOB,CAD,HTN [id number] 05/29/2016 07:35:00 05/29/2016 23:59:59 CLS Outpatient VERONICA BUSCH MD [facility] CARD CP,CAD,CHF [id number] 06/04/2015 06:30:00 06/04/2015 08:58:00 DIS Emergency ANEUDY JUNE MD [facility] ER CONGESTION,CONSTIPATION [id number] 05/29/2015 09:45:00 05/30/2015 13:58:00 [id number] 05/17/2015 07:46:00 05/17/2015 23:59:59 CLS Outpatient DANICA HANSON MD [facility] PREOP STENOSIS [id number] 01/12/2015 08:09:00 01/12/2015 13:00:00 DIS Outpatient DANICA HANSON MD [facility] RAD STENOSIS [id number] 11/16/2014 07:45:00 11/16/2014 23:59:59 CLS Outpatient VERONICA BUSCH MD [facility] CARD CAD,CHF,HLP [id number] 11/01/2014 13:44:00 11/01/2014 23:59:59 CLS Outpatient VERONICA BUSCH MD [facility] CARD CAD,CHF,HTN,HLP [id number] 04/05/2014 07:25:00 04/05/2014 09:55:00 DIS Outpatient ARMINDA LAUREANO MD [facility] FOLLOW UP TO COLON CANCER [id number] 03/30/2014 07:27:00 03/30/2014 23:59:59 CLS Outpatient ARMINDA LAUREANO MD [facility] PREOP FOLLOW UP TO COLON CANCER [id number] 11/17/2013 14:46:00 11/17/2013 23:59:59 CLS Outpatient ARMINDA LAUREANO MD [facility] LAB NIGHT SWEATS [employer] [id number] 09/15/2013 07:31:00 09/15/2013 23:59:59 CLS Outpatient VERONICA BUSCH MD [facility] RAD CAD,CHB,CAROTID ARTERY STENOSIS,HTN [id number] 07/20/2013 07:27:00 07/20/2013 10:47:00 DIS Outpatient ARMINDA LAUREANO MD [facility] SDC EROSIVE ESOPHAGAOUS [id number] 07/15/2013 07:29:00 07/15/2013 23:59:59 CLS Outpatient ARMINDA LAUREANO MD [facility] PREOP EROSIVE ESAPHOGEOUS [id number] 06/06/2013 13:12:00 06/06/2013 23:59:59 CLS Outpatient [id number] 11/01/2014 13:59:00 Document Registration [id number] 11/01/2014 13:59:00 Document Registration [id number] 01/20/2013 13:42:00 Document Registration [id number] 07/27/2012 09:19:00 Document Registration [id number] 07/24/2012 08:09:00 Document Registration [id number] 02/15/2012 06:25:00 Document Registration [id number] 02/14/2012 09:26:00 Document Registration [id number] 02/11/2012 11:04:00 Document Registration [id number] 02/10/2012 08:45:00 Document Registration [id number] 09/16/2011 13:25:00 Document Registration [id number] 08/26/2011 17:55:00 Document Registration [id number] 08/26/2011 16:05:00 Document Registration [id number] 08/13/2011 05:41:00 Document Registration [id number] 08/08/2011 13:04:00 Document Registration [id number] 07/19/2011 06:57:00 Document Registration [id number] 03/18/2011 07:56:00 Document Registration [id number] 03/11/2011 08:15:00 Document Registration [id number] 02/08/2011 00:00:00 Document Registration [id number] 11/09/2010 10:51:00 Document Registration [id number] 09/20/2010 08:23:00 Document Registration [id number] 01/16/2010 13:09:00 Document Registration [id number] 10/31/2009 09:16:00 Document Registration
[2018-01-29] MEDS ORDERED: fentaNYL INJECTION 100 MCG/2 ML AMP IVP ONE (18:15)
[2018-01-29] MEDS ORDERED: LACTATED RINGERS 1,000 ML IV ONE (18:15)
[2018-01-29] MEDS ORDERED: ONDANSETRON 4 MG/2 ML (SDV) Z0FRAN IVP ONE ×2 (18:15→21:15)
--- NOTE | 2018-01-29 18:22 | ED Abdominal Pain ---
General Chief Complaint: Abdominal/GI Problems Stated Complaint: DIARRHEA Nursing Triage Note: ONSET OF DIARRHEA WITH VOMITING SINCE LAST NIGHT UNABLE TO EAT. Sepsis Screen: No Definite Risk Source of Information: Patient, Spouse Exam Limitations: No Limitations History of Present Illness Date Seen by Provider: January 29, 2018 Time Seen by Provider: 18:11 Initial Comments The patient presents to the ER by private conveyance with his significant other and a chief complaint this is the second day he's been having all of her abdominal pain, loose stools diarrhea and nausea with vomiting. He has no blood in stool or emesis. He is having some pain in his low back worse and is never happened before 10 out of 10. He says this started just today. He is not ill keep any fluids down he feels dehydrated and "weak as a kitten". He has not seen anybody for this yet. He does not have a history of irritable bowel or inflammatory bowel disease. He does have a history however of having his gallbladder removed surgically as well as a polyp removed surgically. He did not require chemotherapy or radiation. He also has a history of a posttraumatic colostomy placement for about 30 days that was removed. He has a history of a large ventral hernia. He denies any bloating, fever, chills. He does have malaise and weakness though. Allergies and Home Medications Allergies Coded Allergies: amoxicillin (Verified Allergy, Unknown, 01/16/10) Home Medications Alfuzosin HCl 10 Mg Tab.er.24h, 10 MG PO DAILY@1800, (Reported) Aspirin 81 Mg Tablet.dr, 81 MG PO DAILY, (Reported) Cholecalciferol (Vitamin D3) 1,000 Unit Tablet, 1,000 UNIT PO DAILY, (Reported) Cyanocobalamin 1,000 Mcg/Ml Inj, 1,000 MCG IJ MONTHLY, (Reported) Enalapril Maleate 10 Mg Tablet, 10 MG PO BID, (Reported) Ferrous Sulfate 325 Mg Tablet, 325 MG PO DAILY, (Reported) Fluconazole 200 Mg Tablet, 200 MG PO DAILY Prescribed by: ARMINDA LAUREANO on 12/26/17 0957 Folic Acid 1 Mg Tablet, 1 MG PO DAILY@1200, (Reported) Gabapentin 300 Mg Capsule, 300 MG PO HS, (Reported) Loratadine 10 Mg Tablet, 10 MG PO DAILY, (Reported) Metoprolol Succinate 100 Mg Tab.er.24h, 100 MG PO BID, (Reported) Multivitamin 1 Each Tablet, 1 TAB PO DAILY, (Reported) [place]-3 Fatty Acids/Fish Oil 1 Each Capsule, 1,200 MG PO TID, (Reported) Oxymetazoline HCl 15 Ml Mist, 15 ML NS DAILY, (Reported) Pantoprazole Sodium 40 Mg Tablet.dr, 40 MG PO DAILY, (Reported) Simvastatin 20 Mg Tablet, 20 MG PO DAILY @ 1200, (Reported) Zinc Amino Acid Chelate 50 Mg Tablet, 50 MG PO WITH EVENING MEAL, (Reported) Patient Home Medication List Home Medication List Reviewed: Yes Review of Systems Constitutional: No chills, No diaphoresis; malaise, weakness EENTM: No Eye Pain, No Eye Tearing Respiratory: Denies Cough; Shortness of Air Cardiovascular: Denies Chest Pain, Denies Syncope Gastrointestinal: Denies Abdomen Distended, Denies Abdominal Pain, Denies Blood Streaked Stools, Denies Constipated; Diarrhea; Denies Difficulty Swallowing; Nausea, Poor Appetite, Poor Fluid Intake; Denies Rectal Bleeding; Vomiting Genitourinary: Denies Burning, Denies Discharge Musculoskeletal: back pain (lumbar); No joint pain; muscle pain, muscle stiffness Skin: No pruritus, No rash Past Jsaqrfy-Vlhnmy-Eybujj Hx Patient Social History Alcohol Use: Denies Use Recreational Drug Use: No Smoking Status: Former Smoker Type Used: Cigars Former Smoker, Quit: Jun 12, 1967 Recent Foreign Travel: No Contact w/Someone Who Travel: No Recent Infectious Disease Expo: No Recent Hopitalizations: No Immunizations Up To Date Tetanus Booster (TDap): Unknown PED Vaccines UTD: Yes Date of Pneumonia Vaccine: Jun 12, 2012 Date of Influenza Vaccine: Jul 14, 2017 Seasonal Allergies Seasonal Allergies: Yes Past Medical History Surgeries: Yes (INGUINAL HERNIA X2, COLON RESECTION, BACK) Orthopedic Respiratory: No Currently Using CPAP: No Currently Using BIPAP: No Cardiac: Yes (HX SMALL HEART ATTACK, 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, pacemaker) Hypertension Neurological: No Reproductive Disorders: No Sexually Transmitted Disease: No HIV/AIDS: No Gastrointestinal: Yes (COLON CANCER, HX INTESTIONAL ABCESS) Gastroesophageal Reflux Musculoskeletal: Yes (LUMBAR STENOSIS) Chronic Back Pain Endocrine: No Loss of Vision: Bilateral Hearing Impairment: Denies Cancer: Yes Colon What Type of Treatment Did You: Surgical Intervention Psychosocial: No Integumentary: No Blood Disorders: No Adverse Reaction/Blood Tranf: No Physical Exam Vital Signs Vital Signs - First Documented 01/29/18 17:45 Temp 98.0 Pulse 96 Resp 18 B/P (MAP) 110/62 (78) Pulse Ox 98 O2 Delivery Room Air Capillary Refill : Less Than 3 Seconds General Appearance: WD/WN, mild distress HEENT: PERRL/EOMI, normal ENT inspection, pharynx normal (dry mucous membranes) Neck: non-tender, supple, normal inspection Respiratory: chest non-tender, lungs clear, normal breath sounds, no respiratory distress, no accessory muscle use Cardiovascular: normal peripheral pulses, regular rate, rhythm, no edema, no murmur Peripheral Pulses: 2+ Dorsalis Pedis (R), 2+ Left Dors-Pedis (L), 2+ Radial Pulses (R), 2+ Radial Pulses (L) Gastrointestinal: soft, abnormal bowel sounds (hypoactive); No guarding; tenderness (mild tenderness diffusely) Back: normal inspection, no CVA tenderness, vertebral tenderness (lumbar bilateral sides and the muscle to tenderness) Neurologic/Psychiatric: alert, normal mood/affect, oriented x 3 Skin: normal color, warm/dry Progress/Results/Core Measures Results/Orders Lab Results Laboratory Tests Test 01/29/18 18:46 01/29/18 18:58 Range/Units White Blood Count 10.7 4.3-11.0 10^3/uL Red Blood Count 4.94 4.35-5.85 10^6/uL Hemoglobin 16.1 13.3-17.7 G/DL Hematocrit 46 40-54 % Mean Corpuscular Volume 94 80-99 FL Mean Corpuscular Hemoglobin 33 25-34 PG Mean Corpuscular Hemoglobin Concent 35 32-36 G/DL Red Cell Distribution Width 12.9 10.0-14.5 % Platelet Count 95 L 130-400 10^3/uL Mean Platelet Volume 10.0 7.4-10.4 FL Neutrophils (%) (Auto) 80 H 42-75 % Lymphocytes (%) (Auto) 9 L 12-44 % Monocytes (%) (Auto) 11 0-12 % Eosinophils (%) (Auto) 0 0-10 % Basophils (%) (Auto) 0 0-10 % Neutrophils # (Auto) 8.6 H 1.8-7.8 X 10^3 Lymphocytes # (Auto) 1.0 1.0-4.0 X 10^3 Monocytes # (Auto) 1.2 H 0.0-1.0 X 10^3 Eosinophils # (Auto) 0.0 0.0-0.3 10^3/uL Basophils # (Auto) 0.0 0.0-0.1 10^3/uL Sodium Level 136 135-145 MMOL/L Potassium Level 3.8 3.6-5.0 MMOL/L Chloride Level 105 98-107 MMOL/L Carbon Dioxide Level 20 L 21-32 MMOL/L Anion Gap 11 5-14 MMOL/L Blood Urea Nitrogen 25 H 7-18 MG/DL Creatinine 1.52 H 0.60-1.30 MG/DL Estimat Glomerular Filtration Rate 44 BUN/Creatinine Ratio 16 Glucose Level 162 H 70-105 MG/DL Calcium Level 9.0 8.5-10.1 MG/DL Magnesium Level 1.6 L 1.8-2.4 MG/DL Total Bilirubin 2.2 H 0.1-1.0 MG/DL Aspartate Amino Transf (AST/SGOT) 24 5-34 U/L Alanine Aminotransferase (ALT/SGPT) 33 0-55 U/L Alkaline Phosphatase 44 40-136 U/L C-Reactive Protein High Sensitivity 9.35 H 0.00-0.50 MG/DL Total Protein 6.7 6.4-8.2 GM/DL Albumin 4.1 3.2-4.5 GM/DL Urine Color YELLOW Urine Clarity CLEAR Urine pH 5 5-9 Urine Specific [place] 1.020 1.016-1.022 Urine Protein 2+ H NEGATIVE Urine Glucose (UA) NEGATIVE NEGATIVE Urine Ketones 2+ H NEGATIVE Urine Nitrite NEGATIVE NEGATIVE Urine Bilirubin 1+ H NEGATIVE Urine Urobilinogen NORMAL NORMAL MG/DL Urine Leukocyte Esterase 3+ H NEGATIVE Urine RBC (Auto) 1+ H NEGATIVE Urine RBC 2-5 H /HPF Urine WBC 10-25 H /HPF Urine Squamous Epithelial Cells 0-2 /HPF Urine Crystals NONE /LPF Urine Bacteria FEW H /HPF Urine Casts NONE /LPF Urine Mucus NEGATIVE /LPF Urine Culture Indicated YES My Orders Orders - SURINDER HILL Cbc With Automated Diff (01/29/18 18:15) Comprehensive Metabolic Panel (01/29/18 18:15) Hs C Reactive Protein (01/29/18 18:15) Magnesium (01/29/18 18:15) Ua Culture If Indicated (01/29/18 18:15) Saline Lock/Iv-Start (01/29/18 18:15) Lactated Ringers (Lr 1000 Ml Iv Solution (01/29/18 18:15) Fentanyl Injection (Sublimaze Injection (01/29/18 18:15) Ondansetron Injection (Zofran Injectio (01/29/18 18:15) Urine Culture (01/29/18 18:58) Ct Abdomen/Pelvis Wo (01/29/18 19:31) Lactated Ringers (Lr 1000 Ml Iv Solution (01/29/18 21:12) Ondansetron Injection (Zofran Injectio (01/29/18 21:15) Ciprofloxacin Iv 400mg/200ml (Cipro Iv S (01/29/18 21:15) Medications Given in ED Current Medications Medications Dose Ordered Sig/Carli Route Start Time Stop Time Status Last Admin Dose Admin Ciprofloxacin/ Dextrose 200 ml @ 200 mls/hr ONCE ONCE IV 01/29/18 21:15 01/29/18 22:14 01/29/18 21:22 200 MLS/HR Fentanyl Citrate 50 mcg ONCE ONCE IVP 01/29/18 18:15 01/29/18 18:19 DC 01/29/18 18:55 50 MCG Lactated Ringer's 1,000 ml @ 0 mls/hr Q0M ONCE IV 01/29/18 18:15 01/29/18 18:19 DC 01/29/18 18:55 0 MLS/HR Ondansetron HCl 4 mg ONCE ONCE IVP 01/29/18 18:15 01/29/18 18:19 DC 01/29/18 18:54 4 MG Ondansetron HCl 4 mg ONCE ONCE IVP 01/29/18 21:15 01/29/18 21:17 DC 01/29/18 21:22 4 MG Vital Signs/I&O 01/29/18 17:45 Temp 98.0 Pulse 96 Resp 18 B/P (MAP) 110/62 (78) Pulse Ox 98 O2 Delivery Room Air Blood Pressure Mean: 78 Progress Progress Note #1: Time: 18:20 Progress Note We'll give him some fentanyl for his low back pain. He typically uses aspirin and Plavix history of stents however he stopped that 1 day ago because getting ready to have dental surgery. We'll avoid NSAIDs for that reason. We'll get a CT scan of his belly since he's having hypoactive bowel sounds looking for ileus versus viral gastroenteritis versus obstruction. Progress Note #2: Time: 21:59 Progress Note Patient's had some nausea vomiting and diarrhea since he's been here. These are to get a prescription for some Zofran at home when he called his primary care provider earlier today and his picked it up. He also has Imodium at home. He would like to go home. We've given his first dose of Cipro he says he feels much better. His next dose will be tomorrow morning and he will roller picker the pharmacy. He's been given strict return precautions to come back to the ER. We have offered him an observation stay but because the hospital is without beds he would mean a transport out of town. He does not want to do this. Diagnostic Imaging Diagonstic Imaging: CT Plain Films/CT/US/NM/MRI: abdomen, pelvis (c/o) Comments NAME: MIS [facility] REC#: [id number] PHYSICIAN: SURINDER HILL MD CC: EDUARDO BOYKIN MD; SURINDER HILL Page 2 of 3 RADIOLOGY REPORT VIA [place], [place] CC: EDUARDO BOYKIN MD; SURINDER HILL Page 1 of 3 RADIOLOGY REPORT NAME: MIS [facility]DES [facility] REC#: [id number] PT STATUS: REG ER : 1935 PHYSICIAN: SURINDER HILL MD ADMIT DATE: 01/29/18/ER Signed Date of Exam: 01/29/18 CT ABDOMEN/PELVIS WO PROCEDURE: CT abdomen and pelvis without contrast. TECHNIQUE: Multiple contiguous axial images were obtained through the abdomen and pelvis without the use of intravenous contrast. DATE: January 29, 2018. COMPARISON: [facility] September 10, 2011. INDICATION: 82-year-old male, vomiting and diarrhea. History of colon cancer. FINDINGS: There are limitations for evaluation of the abdominal organs, neoplastic processes, abscess, and limited evaluation of the vasculature relating to the lack of intravenous contrast. There is a 4 mm calcified right lower lobe granuloma. There are additional subcentimeter calcified left lower lobe granulomas and calcified hilar and subcarinal lymph nodes likely relating to sequelae of prior granulomatous disease. The heart is not enlarged. There is a small amount of fluid attenuation within the esophagus, which may relate to slow transit of recently swallowed fluid material and/or gastroesophageal reflux. The liver is unremarkable in size and contour. The patient is status post cholecystectomy. There is no identified intrahepatic or extrahepatic bile duct dilation. The main pancreatic duct is not abnormally dilated. The spleen is not enlarged. Splenic calcifications likely relate to prior granulomatous disease. The adrenal glands are unremarkable. There is a low-attenuation left renal lesion on axial image 40, which measures 3.3 cm in size, which is compatible with benign cyst. There is an additional benign cyst in the left kidney on axial image 44 measuring 2.6 cm in size. There is a 2 mm nonobstructing left renal stone on axial image 39. There are several benign right renal cysts. The largest is arising exophytically from the inferior pole of the right kidney measuring 4.1 cm in size on axial image 47. The urinary collecting systems are not distended. There is no identified ureteral stent. The urinary bladder is grossly unremarkable in appearance. There is a fat-containing left inguinal hernia. There are postoperative changes of the right colon. There is a periumbilical hernia which does contain segments of small bowel. There is no associated obstruction. There is mild stranding of the mesentery anteriorly. There is no identified drainable fluid collection. There is no free intraperitoneal air. There is no free pelvic fluid. There are atherosclerotic calcifications. There is no identified abnormally enlarged lymph node within the abdomen or pelvis, which specifically meets CT size criteria for adenopathy. There is grade 1 retrolisthesis of L2 on L3. There are postoperative changes of the lower lumbar spine with laminectomy changes. There is no identified acute bony abnormality. IMPRESSION: CT ABDOMEN AND PELVIS. 1. Periumbilical hernia containing segments of small bowel without associated obstruction. 2. Status post partial right colectomy. 3. Multiple benign renal cysts bilaterally. 4. 2 mm nonobstructing left renal stone. 5. Sequelae of prior granulomatous disease. Dictated by: Dictated on workstation # [id number] Dict: 01/29/181945 Trans: 01/29/182006 Interpreted by: EDUARDO BOYKIN MD Electronically signed by: EDUARDO BOYKIN MD 01/29/182006 Reviewed: Reviewed by Me Departure Impression Primary Impression: Urinary tract infection Qualified Codes: N30.01 - Acute cystitis with hematuria Additional Impression: Gastroenteritis and colitis, viral Disposition: HOME, SELF-CARE Condition: Improved Departure-Patient Inst. Decision time for Depature: 22:01 Referrals: ARMINDA LAUREANO MD (PCP/Family) Primary Care Physician Patient Instructions: Acute Cystitis (DC) Add. Discharge Instructions: For the next 7 days take the ciprofloxacin one capsule twice a day with food. Drink sports drinks such as Gatorade or Powerade and stay well-hydrated. If you have diarrhea you can take 2 tablets of Imodium to start followed by one tablet every 4 hours later if you have a loose stool. If you have nausea you can take one tablet of Zofran every 4 hours and other dissolve on your tongue. If you develop fevers or you're getting worse or you're unable to control your symptoms with the medications provided you should return to the ER for further evaluation and management. All discharge instructions reviewed with patient and/ or family. Voiced understanding. Scripts Ciprofloxacin HCl (Ciprofloxacin HCl) 500 Mg Tablet 500 MG PO BID for 7 Days, #14 TAB 0 Refills Prov: SURINDER HILL 01/29/18 Copy Copies To 1: ARMINDA LAUREANO MD, TITUS J January 29, 2018 18:22
[2018-01-29 18:56] LABS: BASOPHILS % (AUTO) 0 % (0-10); EOSINOPHILS % (AUTO) 0 % (0-10); HEMATOCRIT 46 % (40-54); HEMOGLOBIN 16.1 G/DL (13.3-17.7); LYMPHOCYTES % (AUTO) 9 % (12-44); MEAN CORPUSCULAR HEMOGLOBIN 33 PG (25-34); MEAN CORPUSCULAR HGB CONC 35 G/DL (32-36); MEAN CORPUSCULAR VOLUME 94 FL (80-99); MONOCYTES # (AUTO) 1.2 X 10^3 (0.0-1.0); MONOCYTES % (AUTO) 11 % (0-12); NEUTROPHILS # (AUTO) 8.6 X 10^3 (1.8-7.8); NEUTROPHILS % (AUTO) 80 % (42-75); PLATELET COUNT 95 10^3/uL (130-400); RED BLOOD COUNT 4.94 10^6/uL (4.35-5.85); RED CELL DISTRIBUTION WIDTH 12.9 % (10.0-14.5); WHITE BLOOD COUNT 10.7 10^3/uL (4.3-11.0)
[2018-01-29 19:04] LABS: BILIRUBIN,URINE 1+ (NEGATIVE); CLARITY,URINE CLEAR; COLOR,URINE YELLOW; GLUCOSE, URINE (UA) NEGATIVE (NEGATIVE); KETONES,URINE 2+ (NEGATIVE); LEUKOCYTE ESTERASE ,URINE 3+ (NEGATIVE); NITRITE,URINE NEGATIVE (NEGATIVE); PH,URINE 5 (5-9); PROTEIN,URINE 2+ (NEGATIVE); UROBILINOGEN,URINE NORMAL (NORMAL)
[2018-01-29 19:12] LABS: BACTERIA,URINE FEW /HPF; SQUAMOUS EPITHELIAL CELL,UR 0-2 /HPF
[2018-01-29 19:20] LABS: ALBUMIN 4.1 GM/DL (3.2-4.5); BILIRUBIN,TOTAL 2.2 MG/DL (0.1-1.0); CREATININE SERUM 1.52 MG/DL (0.60-1.30); MAGNESIUM 1.6 MG/DL (1.8-2.4); POTASSIUM 3.8 MMOL/L (3.6-5.0); TOTAL PROTEIN 6.7 GM/DL (6.4-8.2)
--- NOTE | 2018-01-29 19:57 | Diagnostic Imaging Report ---
PROCEDURE: CT abdomen and pelvis without contrast. TECHNIQUE: Multiple contiguous axial images were obtained through the abdomen and pelvis without the use of intravenous contrast. DATE: January 29, 2018. COMPARISON: [facility] September 10, 2011. INDICATION: 82-year-old male, vomiting and diarrhea. History of colon cancer. FINDINGS: There are limitations for evaluation of the abdominal organs, neoplastic processes, abscess, and limited evaluation of the vasculature relating to the lack of intravenous contrast. There is a 4 mm calcified right lower lobe granuloma. There are additional subcentimeter calcified left lower lobe granulomas and calcified hilar and subcarinal lymph nodes likely relating to sequelae of prior granulomatous disease. The heart is not enlarged. There is a small amount of fluid attenuation within the esophagus, which may relate to slow transit of recently swallowed fluid material and/or gastroesophageal reflux. The liver is unremarkable in size and contour. The patient is status post cholecystectomy. There is no identified intrahepatic or extrahepatic bile duct dilation. The main pancreatic duct is not abnormally dilated. The spleen is not enlarged. Splenic calcifications likely relate to prior granulomatous disease. The adrenal glands are unremarkable. There is a low-attenuation left renal lesion on axial image 40, which measures 3.3 cm in size, which is compatible with benign cyst. There is an additional benign cyst in the left kidney on axial image 44 measuring 2.6 cm in size. There is a 2 mm nonobstructing left renal stone on axial image 39. There are several benign right renal cysts. The largest is arising exophytically from the inferior pole of the right kidney measuring 4.1 cm in size on axial image 47. The urinary collecting systems are not distended. There is no identified ureteral stent. The urinary bladder is grossly unremarkable in appearance. There is a fat-containing left inguinal hernia. There are postoperative changes of the right colon. There is a periumbilical hernia which does contain segments of small bowel. There is no associated obstruction. There is mild stranding of the mesentery anteriorly. There is no identified drainable fluid collection. There is no free intraperitoneal air. There is no free pelvic fluid. There are atherosclerotic calcifications. There is no identified abnormally enlarged lymph node within the abdomen or pelvis, which specifically meets CT size criteria for adenopathy. There is grade 1 retrolisthesis of L2 on L3. There are postoperative changes of the lower lumbar spine with laminectomy changes. There is no identified acute bony abnormality. IMPRESSION: CT ABDOMEN AND PELVIS. 1. Periumbilical hernia containing segments of small bowel without associated obstruction. 2. Status post partial right colectomy. 3. Multiple benign renal cysts bilaterally. 4. 2 mm nonobstructing left renal stone. 5. Sequelae of prior granulomatous disease. Dictated by: Dictated on workstation # [id number]
[2018-01-29] MEDS ORDERED: LACTATED RINGERS 1,000 ML IV STA (21:12)
[2018-01-29] MEDS ORDERED: CIPROFLOXACIN IV 400MG/200ML 200 ML IV ONE (21:15)
[2018-01-29] MEDS ORDERED: CIPR500T4 PO (22:03)
[2018-01-29 22:12] VITALS: BP 169/97
[2018-01-30] MEDS ORDERED: METR500T PO (22:05)
[2018-01-30] MEDS ORDERED: PROM25TA14 PO (22:05)
== END 2018-01-29 22:12 | disposition home or self-care (01) ==
LOC: EDUNIT# 17:02 → ER 17:04
DX: N39.0 Urinary tract infection, site not specified (principal); A08.4 Viral intestinal infection, unspecified; I25.2 Old myocardial infarction; I10 Essential (primary) hypertension; K21.9 Gastro-esophageal reflux disease without esophagitis; Z95.0 Presence of cardiac pacemaker; Z88.0 Allergy status to penicillin; Z93.3 Colostomy status; Z85.038 Personal history of other malignant neoplasm of large intestine; Z79.82 Long term (current) use of aspirin; Z87.891 Personal history of nicotine dependence; Z90.49 Acquired absence of other specified parts of digestive tract
CPT/HCPCS: 36415; 74176; 80053; 81000; 83735; 85025; 86141; 87088; 96361; 96365; 96375; 96376

== ENCOUNTER 2018-01-30 18:36 | Emergency (ER) | payer MEDICARE ==
[~2018-01-30] VITALS: Ht 180.3 cm; Wt 96.2 kg
[~2018-01-30 18:36] MED LIST changes: +CIPR500T4 PO
--- OUTSIDE RECORDS SUMMARY | 2018-01-30 18:42 | XMS REPORT | Continuity of Care Document ---
Author Author [facility] Organization [facility] Address Unknown Phone Unavailable Allergies Active Description Code Type Severity Reaction Onset Reported/Identified Relationship to Patient Clinical Status Yes amoxicillin [id number] Drug Allergy Unknown N/A 01/16/2010 Medications There is no data. Problems Date Dx Coded Attending Type Code Diagnosis Diagnosed By 01/17/2010 Ot 272.4 HYPERLIPIDEMIA NEC/NOS 01/17/2010 Ot 401.9 HYPERTENSION NOS 01/17/2010 Ot 414.01 CORONARY ATHEROSCLEROSIS OF [place] CORON 01/17/2010 Ot 426.0 ATRIOVENT BLOCK COMPLETE [...] NOS 08/16/2011 Ot 414.01 CORONARY ATHEROSCLEROSIS OF [place] CORON 08/16/2011 Ot V12.72 PERSONAL HISTORY OF [...] NOS 02/15/2012 Ot 414.01 CORONARY ATHEROSCLEROSIS OF [place] CORON 02/15/2012 Ot 426.0 ATRIOVENT BLOCK COMPLETE [...] STENOSIS, LUMBAR REGION, W NEUROG 05/30/2015 DANICA HANSON MD Ot V10.05 HX OF COLONIC MALIGNANCY [...] MD Ot I25.10 ATHSCL HEART DISEASE OF [place] CORONARY 06/12/2016 VERONICA BUSCH MD Ot I27.2 OTHER SECONDARY PULMONARY HYPERTENSION 06/12/2016 VERONICA BUSCH MD Ot I44.2 ATRIOVENTRICULAR BLOCK, COMPLETE 06/12/2016 VERONICA BUSCH MD Ot I50.22 CHRONIC SYSTOLIC (CONGESTIVE) HEART FAIL 06/12/2016 VERONICA BUSCH MD Ot R07.89 OTHER CHEST PAIN 06/12/2016 VERONICA BUSCH MD Ot R94.39 ABNORMAL RESULT OF OTHER CARDIOVASCULAR 06/12/2016 VERONICA BUSCH MD Ot Z79.899 OTHER POT FIREMAN (CURRENT) DRUG THERAPY 06/12/2016 VERONICA BUSCH MD Ot Z95.0 PRESENCE OF CARDIAC PACEMAKER 06/19/2016 VERONICA BUSCH MD Ot E78.5 HYPERLIPIDEMIA, UNSPECIFIED 06/19/2016 VERONICA BUSCH MD Ot I10 ESSENTIAL (PRIMARY) HYPERTENSION 06/19/2016 VERONICA BUSCH MD Ot I25.10 ATHSCL HEART DISEASE OF [place] CORONARY 06/19/2016 VERONICA BUSCH MD Ot I50.9 HEART FAILURE, UNSPECIFIED 06/19/2016 VERONICA BUSCH MD Ot R07.89 OTHER CHEST PAIN 06/26/2016 VERONICA BUSCH MD Ot E78.5 HYPERLIPIDEMIA, UNSPECIFIED 06/26/2016 VERONICA BUSCH MD Ot I10 ESSENTIAL (PRIMARY) HYPERTENSION 06/26/2016 VERONICA BUSCH MD Ot I25.10 ATHSCL HEART DISEASE OF [place] CORONARY 06/26/2016 VERONICA BUSCH MD Ot I50.9 [...] NOS 09/06/2016 Ot 414.01 CORONARY ATHEROSCLEROSIS OF [place] CORON 09/06/2016 Ot 426.2 LEFT BB HEMIBLOCK [...] MD, Ot I25.10 ATHSCL HEART DISEASE OF [place] CORONARY 09/06/2016 VERONICA BUSCH MD Ot I50.9 [...] 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 12/23/2017 RAMINDA LAUREANO MD Ot R11.0 NAUSEA 12/23/2017 ARMINDA LAUREANO MD Ot Z01.818 ENCOUNTER FOR OTHER PREPROCEDURAL EXAMIN 12/23/2017 ARMINDA LAUREANO MD Ot Z80.0 FAMILY HISTORY OF MALIGNANT NEOPLASM OF 12/26/2017 ARMINDA LAUREANO MD Ot B37.81 CANDIDAL ESOPHAGITIS 12/26/2017 ARMINDA LAUREANO MD Ot E78.5 HYPERLIPIDEMIA, UNSPECIFIED 12/26/2017 ARMINDA LAUREANO MD Ot I10 ESSENTIAL (PRIMARY) HYPERTENSION 12/26/2017 ARMINDA LAUREANO MD Ot I25.10 ATHSCL HEART DISEASE OF [place] CORONARY 12/26/2017 ARMINDA LAUREANO MD Ot K29.70 GASTRITIS, UNSPECIFIED, WITHOUT BLEEDING 12/26/2017 ARMINDA LAUREANO MD Ot M70.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 BURSITIS, LEFT HIP 12/26/2017 ARMINDA LAUREANO MD Ot Z79.02 LONGTERM (CURRENT) USE OF ANTITHROMBOTI 12/26/2017 ARMINDA LAUREANO MD Ot Z79.82 LONGTERM (CURRENT) USE OF ASPIRIN 12/26/2017 ARMINDA LAUREANO MD Ot Z79.899 OTHER LONGTERM (CURRENT) DRUG THERAPY 12/26/2017 ARMINDA LAUREANO MD Ot Z95.0 PRESENCE OF CARDIAC PACEMAKER 12/29/2017 ARMINDA LAUREANO MD Ot B37.81 CANDIDAL ESOPHAGITIS 12/29/2017 ARMINDA LAUREANO MD Ot E78.5 HYPERLIPIDEMIA, UNSPECIFIED 12/29/2017 ARMINDA LAUREANO MD Ot I10 ESSENTIAL (PRIMARY) HYPERTENSION 12/29/2017 ARMINDA LAUREANO MD Ot I25.10 ATHSCL HEART DISEASE OF [place] CORONARY 12/29/2017 ARMINDA LAUREANO MD Ot K29.70 GASTRITIS, UNSPECIFIED, WITHOUT BLEEDING 12/29/2017 ARMINDA LAUREANO MD Ot M70.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 BURSITIS, LEFT HIP 12/29/2017 ARMINDA LAUREANO MD Ot Z79.02 LONGTERM (CURRENT) USE OF ANTITHROMBOTI 12/29/2017 ARMINDA LAUREANO MD Ot Z79.82 LONGTERM (CURRENT) USE OF ASPIRIN 12/29/2017 ARMINDA LAUREANO MD Ot Z79.899 OTHER LONGTERM (CURRENT) DRUG THERAPY 12/29/2017 ARMINDA LAUREANO MD Ot Z95.0 PRESENCE OF CARDIAC PACEMAKER Procedures Code Description Performed By Performed On 37.72 INITIAL INSERT TRANS LEADS INTO ATRIUM 01/16/2010 37.83 INITIAL INSERTION OF DUAL- CHAMBER DEVICE 01/16/2010 89.45 PACEMAKER RATE CHECK 01/17/2010 17.33 LAPAROSCOPIC RIGHT HEMICOLECTOMY 08/13/2011 45.93 [id number] BOWEL NEC 08/13/2011 54.4 DESTRUCT PERITONEAL TISS [...] culture - 06/12/16 07:24 Bacterial urine culture [id number] NRG COLONY COUNT 10,000/ML - 100,000/ML NRG [...] FTX;REPORTABLE PLUS NORMAL PHI NRG Fungus culture [id number] NRG Complete blood count (CBC) with automated white blood cell (WBC) differential - 01/29/18 18:46 Blood leukocytes automated count (number/volume) 10.7 10*3/uL 4.3-11.0 Blood erythrocytes automated count (number/volume) 4.94 10*6/uL 4.35-5.85 Venous blood hemoglobin measurement (mass/volume) 16.1 g/dL 13.3-17.7 Blood hematocrit (volume fraction) 46 % 40-54 Automated erythrocyte mean corpuscular volume 94 [foz_us] 80-99 Automated erythrocyte mean corpuscular hemoglobin (mass per erythrocyte) 33 pg 25-34 Automated erythrocyte mean corpuscular hemoglobin concentration measurement ( mass/volume) 35 g/dL 32-36 Automated erythrocyte distribution width ratio 12.9 % 10.0-14.5 Automated blood platelet count (count/volume) 95 10*3/uL 130-400 Automated blood platelet mean volume measurement 10.0 [foz_us] 7.4-10.4 Automated blood neutrophils/100 leukocytes 80 % 42-75 Automated blood lymphocytes/100 leukocytes 9 % 12-44 Blood monocytes/100 leukocytes 11 % 0-12 Automated blood eosinophils/100 leukocytes 0 % 0-10 Automated blood basophils/100 leukocytes 0 % 0-10 Blood neutrophils automated count (number/volume) 8.6 10*3 1.8-7.8 Blood lymphocytes automated count (number/volume) 1.0 10*3 1.0-4.0 Blood monocytes automated count (number/volume) 1.2 10*3 0.0-1.0 Automated eosinophil count 0.0 10*3/uL 0.0-0.3 Automated blood basophil count (count/volume) 0.0 10*3/uL 0.0-0.1 Comprehensive metabolic panel - 01/29/18 18:46 Serum or plasma sodium measurement (moles/volume) 136 mmol/L 135-145 Serum or plasma potassium measurement (moles/volume) 3.8 mmol/L 3.6-5.0 Serum or plasma chloride measurement (moles/volume) 105 mmol/L 98-107 Carbon dioxide 20 mmol/L 21-32 Serum or plasma anion gap determination (moles/volume) 11 mmol/L 5-14 Serum or plasma urea nitrogen measurement (mass/volume) 25 mg/dL 7-18 Serum or plasma creatinine measurement (mass/volume) 1.52 mg/dL 0.60-1.30 Serum or plasma urea nitrogen/creatinine mass ratio 16 NRG Serum or plasma creatinine measurement with calculation of estimated glomerular filtration rate 44 NRG Serum or plasma glucose measurement (mass/volume) 162 mg/dL 70-105 Serum or plasma calcium measurement (mass/volume) 9.0 mg/dL 8.5-10.1 Serum or plasma total bilirubin measurement (mass/volume) 2.2 mg/dL 0.1-1.0 Serum or plasma alkaline phosphatase measurement (enzymatic activity/volume) 44 U/L 40-136 Serum or plasma aspartate aminotransferase measurement (enzymatic activity/ volume) 24 U/L 5-34 Serum or plasma alanine aminotransferase measurement (enzymatic activity/volume ) 33 U/L 0-55 Serum or plasma protein measurement (mass/volume) 6.7 g/dL 6.4-8.2 Serum or plasma albumin measurement (mass/volume) 4.1 g/dL 3.2-4.5 Magnesium - 01/29/18 18:46 Magnesium 1.6 mg/dL 1.8-2.4 Serum or plasma C reactive protein measurement (mass/volume) - 01/29/18 18:46 Serum or plasma C reactive protein measurement (mass/volume) 9.35 mg /dL 0.00-0.50 Complete urinalysis with reflex to culture - 01/29/18 18:58 Urine color determination YELLOW NRG Urine clarity determination CLEAR NRG Urine pH measurement by test strip 5 5-9 Specific gravity of urine by test strip 1.020 1.016- 1.022 Urine protein assay by test strip, semi-quantitative 2+ NEGATIVE Urine glucose detection by automated test strip NEGATIVE NEGATIVE Erythrocytes detection in urine sediment by light microscopy 1+ NEGATIVE Urine ketones detection by automated test strip 2+ NEGATIVE Urine nitrite detection by test strip NEGATIVE NEGATIVE Urine total bilirubin detection by test strip 1+ NEGATIVE Urine urobilinogen measurement by automated test strip (mass/volume) NORMAL NORMAL Urine leukocyte esterase detection by dipstick 3+ NEGATIVE Automated urine sediment erythrocyte count by microscopy (number/high power field) [HPF] NRG Automated urine sediment leukocyte count by microscopy (number/high power field ) [HPF] NRG Bacteria detection in urine sediment by light microscopy FEW NRG Squamous epithelial cells detection in urine sediment by light microscopy 0-2 NRG Crystals detection in urine sediment by light microscopy NONE NRG Casts detection in urine sediment by light microscopy NONE NRG Mucus detection in urine sediment by light microscopy NEGATIVE NRG Complete urinalysis with reflex to culture YES NRG Bacterial urine culture - 01/29/18 18:58 URINE CULTURE RESULTS 10,000/ML - 100,000/ML NRG Encounters ACCT No. Visit Date/Time Discharge Status Pt. Type Provider Facility Loc./Unit Complaint [id number] 01/29/2018 17:04:00 01/29/2018 22:12:00 DIS Emergency SERGIO NORTON, SURINDER Javed [facility] ER DIARRHEA [id number] 12/26/2017 08:19:00 12/26/2017 10:55:00 DIS Outpatient ARMINDA LAUREANO MD [facility] ENDO 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 [id number] 12/22/2017 06:17:00 12/22/2017 15:08:00 DIS Outpatient ARMINDA LAUREANO MD [facility] PREOP EGD [id number] 09/06/2016 08:26:00 09/06/2016 11:35:00 DIS Outpatient ARMINDA LAUREANO MD [facility] SDC HISTORY COLON CANCER [id number] 09/04/2016 05:42:00 09/04/2016 14:33:00 DIS Outpatient ARMINDA LAUREANO MD [facility] PREOP HISTORY COLON CANCER [id number] 06/12/2016 06:56:00 06/12/2016 14:00:00 DIS Outpatient VERONICA BUSCH MD [facility] CATH CP,SOB,CAD,HTN [id number] 05/29/2016 07:35:00 05/29/2016 23:59:59 CLS Outpatient VERONICA BUSCH MD [facility] CARD CP,CAD,CHF [id number] 06/04/2015 06:30:00 06/04/2015 08:58:00 DIS Emergency ANEUDY JUNE MD [facility] ER CONGESTION,CONSTIPATION [id number] 05/29/2015 09:45:00 05/30/2015 13:58:00 DIS Outpatient DANICA HANSON MD [facility] SDC STENOSIS [id number] 05/17/2015 07:46:00 05/17/2015 23:59:59 CLS Outpatient DANICA HANSON MD [facility] PREOP STENOSIS [id number] 01/12/2015 08:09:00 01/12/2015 13:00:00 DIS Outpatient DANICA HANSON MD [facility] RAD STENOSIS [id number] 11/16/2014 07:45:00 11/16/2014 23:59:59 CLS Outpatient VERONICA BUSCH MD [facility] CARD CAD,CHF,HLP [id number] 11/01/2014 13:44:00 11/01/2014 23:59:59 CLS Outpatient VERONICA BUSCH MD [facility] CARD CAD,CHF,HTN,HLP [id number] 04/05/2014 07:25:00 04/05/2014 09:55:00 DIS Outpatient ARMINDA LAUREANO MD [facility] FOLLOW UP TO COLON CANCER [id number] 03/30/2014 07:27:00 03/30/2014 23:59:59 CLS Outpatient ARMINDA LAUREANO MD [facility] PREOP FOLLOW UP TO COLON CANCER [id number] 11/17/2013 14:46:00 11/17/2013 23:59:59 CLS Outpatient ARMINDA LAUREANO MD [facility] LAB NIGHT SWEATS R/O AFB [id number] 09/15/2013 07:31:00 09/15/2013 23:59:59 CLS Outpatient VERONICA BUSCH MD [facility] RAD CAD,CHB,CAROTID ARTERY STENOSIS,HTN [id number] 07/20/2013 07:27:00 07/20/2013 10:47:00 DIS Outpatient ARMINDA LAUREANO MD [facility] EROSIVE ESOPHAGAOUS [id number] 07/15/2013 07:29:00 07/15/2013 23:59:59 CLS Outpatient ARMINDA LAUREANO MD [facility] PREOP EROSIVE ESAPHOGEOUS [id number] 06/06/2013 13:12:00 06/06/2013 23:59:59 CLS Outpatient [id number] 11/01/2014 13:59:00 Document Registration [id number] 11/01/2014 13:59:00 Document Registration [id number] 01/20/2013 13:42:00 Document Registration [id number] 07/27/2012 09:19:00 Document Registration [id number] 07/24/2012 08:09:00 Document Registration [id number] 02/15/2012 06:25:00 Document Registration [id number] 02/14/2012 09:26:00 Document Registration [id number] 02/11/2012 11:04:00 Document Registration [id number] 02/10/2012 08:45:00 Document Registration [id number] 09/16/2011 13:25:00 Document Registration [id number] 08/26/2011 17:55:00 Document Registration [id number] 08/26/2011 16:05:00 Document Registration [id number] 08/13/2011 05:41:00 Document Registration [id number] 08/08/2011 13:04:00 Document Registration [id number] 07/19/2011 06:57:00 Document Registration [id number] 03/18/2011 07:56:00 Document Registration [id number] 03/11/2011 08:15:00 Document Registration [id number] 02/08/2011 00:00:00 Document Registration [id number] 11/09/2010 10:51:00 Document Registration [id number] 09/20/2010 08:23:00 Document Registration [id number] 01/16/2010 13:09:00 Document Registration [id number] 10/31/2009 09:16:00 Document Registration
--- NOTE | 2018-01-30 19:06 | ED Abdominal Pain ---
General Chief Complaint: Abdominal/GI Problems Stated Complaint: DIARRHEA Nursing Triage Note: Patient advised N/V/D x 3 days that has not improved. He advises he was seen in the ER last night for this complaint and was provided zofran and immodium. Pt. advises physician called in a prescription for cipro for tx. of a urinary tract infection. Sepsis Screen: No Definite Risk Source of Information: Patient Exam Limitations: No Limitations History of Present Illness Date Seen by Provider: January 30, 2018 Time Seen by Provider: 19:04 Initial Comments To ER with reports of watery diarrhea without blood or mucus that began on . He has associated nausea and he did have pain on the day of onset. The abdominal pain was diffuse. He was seen here last night, given fluids, Zofran and Imodium and denies improvement. Despite taking the Zofran every 4 hours he still very nauseous, reports profuse watery diarrhea and now very annoying hiccups. He denies fevers or chills and he denies abdominal pains today. He was diagnosed with urinary tract infection last night, given a prescription for Cipro which she started today. He wonders if he might have C. difficile infection as his has had this before and he did finish antibiotics for an "infection of the esophagus" about a month ago. Primary care is Dr. Laureano. He states he has a history of a brief colostomy with reversal. Colostomy lasted only about a month after falling onto a trailer hitch with subsequent intestinal injury before reversal. This was several years ago. He also has history of right hemicolectomy secondary to colon cancer years ago. Timing/Duration: 2-3 Days Location: Generalized Abdomen Radiation: No Radiation Associated Symptoms: No Fever/Chills; Nausea/Vomiting Allergies and Home Medications Allergies Coded Allergies: amoxicillin (Verified Allergy, Unknown, 01/16/10) Home Medications Alfuzosin HCl 10 Mg Tab.er.24h, 10 MG PO DAILY@1800, (Reported) Aspirin 81 Mg Tablet.dr, 81 MG PO DAILY, (Reported) Cholecalciferol (Vitamin D3) 1,000 Unit Tablet, 1,000 UNIT PO DAILY, (Reported) Ciprofloxacin HCl 500 Mg Tablet, 500 MG PO BID Prescribed by: SURINDER HILL on 01/29/182202 Cyanocobalamin 1,000 Mcg/Ml Inj, 1,000 MCG IJ MONTHLY, (Reported) Enalapril Maleate 10 Mg Tablet, 10 MG PO BID, (Reported) Ferrous Sulfate 325 Mg Tablet, 325 MG PO DAILY, (Reported) Fluconazole 200 Mg Tablet, 200 MG PO DAILY Prescribed by: ARMINDA LAUREANO on 12/26/17956 Folic Acid 1 Mg Tablet, 1 MG PO DAILY@1200, (Reported) Gabapentin 300 Mg Capsule, 300 MG PO HS, (Reported) Loratadine 10 Mg Tablet, 10 MG PO DAILY, (Reported) Metoprolol Succinate 100 Mg Tab.er.24h, 100 MG PO BID, (Reported) Metronidazole 500 Mg Tablet, 500 MG PO TID Prescribed by: CARMEL SANDERS on 01/30/182204 Multivitamin 1 Each Tablet, 1 TAB PO DAILY, (Reported) [place]-3 Fatty Acids/Fish Oil 1 Each Capsule, 1,200 MG PO TID, (Reported) Oxymetazoline HCl 15 Ml Mist, 15 ML NS DAILY, (Reported) Pantoprazole Sodium 40 Mg Tablet.dr, 40 MG PO DAILY, (Reported) Promethazine HCl 25 Mg Tablet, 25 MG PO Q8H PRN for NAUSEA/VOMITING Prescribed by: CARMEL SANDERS on 01/30/182204 Simvastatin 20 Mg Tablet, 20 MG PO DAILY @ 1200, (Reported) Zinc Amino Acid Chelate 50 Mg Tablet, 50 MG PO WITH EVENING MEAL, (Reported) Patient Home Medication List Home Medication List Reviewed: Yes Review of Systems Constitutional: see HPI; No chills, No fever; weakness EENTM: No Symptoms Reported Respiratory: No Symptoms Reported Cardiovascular: No Symptoms Reported Gastrointestinal: See HPI; Denies Abdominal Pain, Denies Constipated; Diarrhea , Nausea, Vomiting Genitourinary: No Symptoms Reported Musculoskeletal: no symptoms reported Skin: no symptoms reported Psychiatric/Neurological: No Symptoms Reported Past Ovmdrkq-Tsphuv-Rmkncv Hx Patient Social History Alcohol Use: Denies Use Recreational Drug Use: No Smoking Status: Former Smoker Type Used: Cigars Former Smoker, Quit: Jun 12, 1967 Recent Foreign Travel: No Contact w/Someone Who Travel: No Recent Infectious Disease Expo: No Recent Hopitalizations: No Physical Abuse: No Sexual Abuse: No Immunizations Up To Date Tetanus Booster (TDap): Unknown PED Vaccines UTD: Yes Date of Pneumonia Vaccine: Jun 12, 2012 Date of Influenza Vaccine: Jul 14, 2017 Seasonal Allergies Seasonal Allergies: Yes Past Medical History Surgeries: Yes (INGUINAL HERNIA X2, COLON RESECTION, BACK) Orthopedic Respiratory: No Currently Using CPAP: No Currently Using BIPAP: No Cardiac: Yes (HX SMALL HEART ATTACK, 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, pacemaker) Hypertension Neurological: No Reproductive Disorders: No Sexually Transmitted Disease: No HIV/AIDS: No Gastrointestinal: Yes (COLON CANCER, HX INTESTIONAL ABCESS) Gastroesophageal Reflux Musculoskeletal: Yes (LUMBAR STENOSIS) Chronic Back Pain Endocrine: No Loss of Vision: Bilateral Hearing Impairment: Denies Cancer: Yes Colon What Type of Treatment Did You: Surgical Intervention Psychosocial: No Nursing Suicide Risk Score: 0 Integumentary: No Blood Disorders: No Adverse Reaction/Blood Tranf: No Physical Exam Vital Signs Vital Signs - First Documented 01/30/18 18:55 Temp 97.8 Pulse 85 Resp 14 B/P (MAP) 129/64 (85) Pulse Ox 98 O2 Delivery Room Air Capillary Refill : Less Than 3 Seconds General Appearance: WD/WN, no apparent distress HEENT: PERRL/EOMI, normal ENT inspection Neck: non-tender, full range of motion Respiratory: no respiratory distress, no accessory muscle use Cardiovascular: regular rate, rhythm, no murmur Gastrointestinal: soft, abnormal bowel sounds (High-pitched), distended ( Abdomen does appear distended but he states that it is no more distended today than usual.); No tenderness Extremities: normal range of motion, non-tender Neurologic/Psychiatric: alert, normal mood/affect, oriented x 3 Skin: normal color, warm/dry Progress/Results/Core Measures Results/Orders Lab Results Laboratory Tests Test 01/30/18 19:22 01/30/18 19:31 Range/Units White Blood Count 4.8 4.3-11.0 10^3/uL Red Blood Count 4.85 4.35-5.85 10^6/uL Hemoglobin 15.8 13.3-17.7 G/DL Hematocrit 45 40-54 % Mean Corpuscular Volume 93 80-99 FL Mean Corpuscular Hemoglobin 33 25-34 PG Mean Corpuscular Hemoglobin Concent 35 32-36 G/DL Red Cell Distribution Width 13.3 10.0-14.5 % Platelet Count 89 L 130-400 10^3/uL Mean Platelet Volume 10.2 7.4-10.4 FL Neutrophils (%) (Auto) 76 H 42-75 % Lymphocytes (%) (Auto) 14 12-44 % Monocytes (%) (Auto) 11 0-12 % Eosinophils (%) (Auto) 0 0-10 % Basophils (%) (Auto) 0 0-10 % Neutrophils # (Auto) 3.6 1.8-7.8 X 10^3 Lymphocytes # (Auto) 0.7 L 1.0-4.0 X 10^3 Monocytes # (Auto) 0.5 0.0-1.0 X 10^3 Eosinophils # (Auto) 0.0 0.0-0.3 10^3/uL Basophils # (Auto) 0.0 0.0-0.1 10^3/uL Sodium Level 132 L 135-145 MMOL/L Potassium Level 3.7 3.6-5.0 MMOL/L Chloride Level 101 98-107 MMOL/L Carbon Dioxide Level 21 21-32 MMOL/L Anion Gap 10 5-14 MMOL/L Blood Urea Nitrogen 37 H 7-18 MG/DL Creatinine 1.63 H 0.60-1.30 MG/DL Estimat Glomerular Filtration Rate 41 BUN/Creatinine Ratio 23 Glucose Level 131 H 70-105 MG/DL Calcium Level 9.0 8.5-10.1 MG/DL Total Bilirubin 1.7 H 0.1-1.0 MG/DL Aspartate Amino Transf (AST/SGOT) 28 5-34 U/L Alanine Aminotransferase (ALT/SGPT) 28 0-55 U/L Alkaline Phosphatase 44 40-136 U/L Total Protein 6.7 6.4-8.2 GM/DL Albumin 4.0 3.2-4.5 GM/DL Urine Color YELLOW Urine Clarity SLIGHTLY CLOUDY Urine pH 5 5-9 Urine Specific [place] 1.025 H 1.016-1.022 Urine Protein 3+ H NEGATIVE Urine Glucose (UA) NEGATIVE NEGATIVE Urine Ketones NEGATIVE NEGATIVE Urine Nitrite NEGATIVE NEGATIVE Urine Bilirubin NEGATIVE NEGATIVE Urine Urobilinogen NORMAL NORMAL MG/DL Urine Leukocyte Esterase 1+ H NEGATIVE Urine RBC (Auto) 3+ H NEGATIVE Urine RBC 2-5 H /HPF Urine WBC 0-2 /HPF Urine Crystals PRESENT H /LPF Urine Amorphous Sediment FEW ALIN URATES H /LPF Urine Bacteria NONE /HPF Urine Casts NONE /LPF Urine Mucus NEGATIVE /LPF Urine Culture Indicated NO My Orders Orders - CARMEL SANDERS APRN Br-Anoxket-Fiogqt (Order) (5/4/18 19:01) Cbc With Automated Diff (01/30/18 19:) Comprehensive Metabolic Panel (01/30/18 19:) Ua Culture If Indicated (01/30/18 19:) Promethazine Injection (Phenergan Injec (01/30/18 19:15) Lactated Ringers (Lr 1000 Ml Iv Solution (01/30/18 19:15) Stool Culture (01/30/18 19:) C Difficile Ag + Toxin A/B. (01/30/18 19:01) Promethazine Injection (Phenergan Injec (01/30/18 20:30) Acute Abd Series (01/30/18 21:03) Ns Iv 500 Ml (Sodium Chloride 0.9%) (01/30/18 21:30) Lorazepam Injection (Ativan Injection) (01/30/18 22:15) Medications Given in ED Current Medications Medications Dose Ordered Sig/Carli Route Start Time Stop Time Status Last Admin Dose Admin Lorazepam 0.5 mg ONCE ONCE IVP 01/30/18 22:15 01/30/18 22:16 DC 01/30/18 22:13 0.5 MG Promethazine HCl 12.5 mg ONCE ONCE IV 01/30/18 20:30 01/30/18 20:31 DC 01/30/18 20:29 12.5 MG Promethazine HCl 12.5 mg ONCE ONCE IVP 01/30/18 19:15 01/30/18 19:16 DC 01/30/18 19:16 12.5 MG Vital Signs/I&O 01/30/18 18:55 Temp 97.8 Pulse 85 Resp 14 B/P (MAP) 129/64 (85) Pulse Ox 98 O2 Delivery Room Air Blood Pressure Mean: 85 Departure Communication (Admissions) 2027- his nausea is better but not gone. This was after giving 12.5 mg of Phenergan IV. He does not have any dystonic reaction or adverse effects from it. 2199-nausea is gone after 12.5 mg of IV Phenergan. He has had 2 trips to the bathroom to have a bowel movement here which was very watery green diarrhea. He was on Cipro for a bladder infection started yesterday, I'll add Flagyl to this and a prescription for Phenergan at home. He did have 1.5 L of fluids here. He is still with a soft abdomen that is nontender to palpation and no c/o pain. However, the hiccups are very bothersome. 0.5mg lorazepam ordered IV. 2249- sleeping at this time, easily awakens to verbal stimuli. No longer has any hiccups Impression Primary Impression: Colitis Additional Impression: Singultus Disposition: 01 HOME, SELF-CARE Condition: Stable Departure-Patient Inst. Decision time for Depature: 22:02 Referrals: ARMINDA LAUREANO MD (PCP/Family) Primary Care Physician Patient Instructions: Diarrhea in Adolescents and Adults Add. Discharge Instructions: 1. [facility] This is a great solution to help keep you hydrated. Start the new antibiotic in addition to the current antibiotic as well as the new nausea medication. All discharge instructions reviewed with patient and/or family. Voiced understanding. Scripts Promethazine HCl (Promethazine Tablet) 25 Mg Tablet 25 MG PO Q8H PRN for NAUSEA/VOMITING, #9 TAB Prov: CARMEL SANDERS APRN 01/30/18 Metronidazole (Flagyl) 500 Mg Tablet 500 MG PO TID, #15 TAB Prov: CARMEL SANDERS APRN 01/30/18 Copy Copies To 2: ARMINDA LAUREANO MD, PETER J APRN January 30, 2018 19:06
[2018-01-30] MEDS ORDERED: LACTATED RINGERS 1,000 ML IV SCH (19:15)
[2018-01-30] MEDS ORDERED: PROMETHAZINE INJ 25 MG/ML (PHENERGAN) AMP IVP ONE (19:15)
[2018-01-30 19:29] LABS: BASOPHILS % (AUTO) 0 % (0-10); EOSINOPHILS % (AUTO) 0 % (0-10); HEMATOCRIT 45 % (40-54); HEMOGLOBIN 15.8 G/DL (13.3-17.7); LYMPHOCYTES # (AUTO) 0.7 X 10^3 (1.0-4.0); LYMPHOCYTES % (AUTO) 14 % (12-44); MEAN CORPUSCULAR HEMOGLOBIN 33 PG (25-34); MEAN CORPUSCULAR HGB CONC 35 G/DL (32-36); MEAN CORPUSCULAR VOLUME 93 FL (80-99); MEAN PLATELET VOLUME 10.2 FL (7.4-10.4); MONOCYTES # (AUTO) 0.5 X 10^3 (0.0-1.0); MONOCYTES % (AUTO) 11 % (0-12); NEUTROPHILS # (AUTO) 3.6 X 10^3 (1.8-7.8); NEUTROPHILS % (AUTO) 76 % (42-75); PLATELET COUNT 89 10^3/uL (130-400); RED BLOOD COUNT 4.85 10^6/uL (4.35-5.85); RED CELL DISTRIBUTION WIDTH 13.3 % (10.0-14.5); WHITE BLOOD COUNT 4.8 10^3/uL (4.3-11.0)
[2018-01-30 19:42] LABS: BILIRUBIN,URINE NEGATIVE (NEGATIVE); CLARITY,URINE SLIGHTLY CLOUDY; COLOR,URINE YELLOW; GLUCOSE, URINE (UA) NEGATIVE (NEGATIVE); KETONES,URINE NEGATIVE (NEGATIVE); LEUKOCYTE ESTERASE ,URINE 1+ (NEGATIVE); NITRITE,URINE NEGATIVE (NEGATIVE); PH,URINE 5 (5-9); PROTEIN,URINE 3+ (NEGATIVE); UROBILINOGEN,URINE NORMAL (NORMAL)
[2018-01-30 19:48] LABS: BILIRUBIN,TOTAL 1.7 MG/DL (0.1-1.0); CREATININE SERUM 1.63 MG/DL (0.60-1.30); POTASSIUM 3.7 MMOL/L (3.6-5.0); TOTAL PROTEIN 6.7 GM/DL (6.4-8.2)
[2018-01-30 19:51] LABS: AMORPHOUS SEDIMENT,UR FEW AMOR URATES /LPF; WBC,URINE 0-2 /HPF
[2018-01-30] MEDS ORDERED: PROMETHAZINE INJ 25 MG/ML (PHENERGAN) AMP IV ONE (20:30)
[2018-01-30] MEDS ORDERED: NS IV 500 ML 500 ML IV SCH (21:30)
--- NOTE | 2018-01-30 21:42 | Diagnostic Imaging Report ---
INDICATION: Pain. EXAMINATION: Acute abdomen series. FINDINGS: The lungs are clear. Some dilute contrast media within nondilated abdominal small bowel in the left upper quadrant. There is some air within the left colon with its gas pattern raising the question of some mural edema and wall thickening. No abnormal fecal load. IMPRESSION: No evidence for obstruction. Atypical appearance of the gas within the left colon raising the question of left-sided colitis. Partially opacified proximal small bowel, nondilated. Nonacute chest. Dictated by: Dictated on workstation # [id number]
[2018-01-30] MEDS ORDERED: PROM25TA14 PO (22:05)
[2018-01-30] MEDS ORDERED: METR500T PO (22:05)
[2018-01-30] MEDS ORDERED: LORazepam INJ 2 MG/ML (ATIVAN) VIAL IVP ONE (22:15)
[2018-01-30 22:59] VITALS: BP 135/72
== END 2018-01-30 23:01 | disposition home or self-care (01) ==
LOC: EDUNIT# 18:36 → ER 18:36
DX: K52.9 Noninfective gastroenteritis and colitis, unspecified (principal); R06.6 Hiccough; I25.2 Old myocardial infarction; I10 Essential (primary) hypertension; K21.9 Gastro-esophageal reflux disease without esophagitis; Z95.0 Presence of cardiac pacemaker; Z93.3 Colostomy status; Z90.89 Acquired absence of other organs; Z85.038 Personal history of other malignant neoplasm of large intestine; Z88.0 Allergy status to penicillin; Z79.82 Long term (current) use of aspirin; Z87.891 Personal history of nicotine dependence; Z87.19 Personal history of other diseases of the digestive system; Z90.49 Acquired absence of other specified parts of digestive tract
CPT/HCPCS: 36415; 74022; 80053; 81000; 85025; 87045; 87046; 87077; 87324; 87449; 96374; 96375; 96376

== ENCOUNTER 2018-03-28 08:51 | Emergency (ER) | payer MEDICARE ==
[~2018-03-28] VITALS: Ht 180.3 cm; Wt 92.1 kg
[~2018-03-28 08:51] MED LIST changes: +METR500T PO; +PROM25TA14 PO
[2018-03-28] MEDS ORDERED: TETANUS,DIPTH,PERTUSS P/F (BOOSTRIX) 0.5 ML VIAL IM STA (09:03)
--- NOTE | 2018-03-28 09:35 | Diagnostic Imaging Report ---
INDICATION: Status post fall while walking dog. Tripped and landed on elbow. Swelling and pain. TECHNIQUE: 3 views of the right elbow CORRELATION STUDY: None FINDINGS: There is a bony protuberance off the lateral epicondyle of distal humerus. Margins are suggested to be somewhat sclerotic and perhaps prior injury. An acute fracture is not excluded. The radial head and proximal ulna intact. No abnormal posterior joint effusion. There is however rather prominent soft tissue swelling along the dorsal aspect of the elbow. IMPRESSION: 1. There is a separate bone fragment adjacent to the lateral epicondyle. This may very well reflect a previous injury. The possibility of acute fracture is not excluded. Correlation symptoms is recommended. There is asymmetric soft tissue swelling along the dorsal aspect of the elbow without abnormal posterior joint effusion. Dictated by: Dictated on workstation # [id number]
--- NOTE | 2018-03-28 09:41 | ED Fall/Injury ---
General Chief Complaint: Trauma-Non Activation Stated Complaint: FELL ON SIDEWALK/ ON STREET IN FRONT OF HOUSE Nursing Triage Note: ARRIVED VIA AMB TO ROOM 06. STATES HE TRIPPED OVER DOG THIS AM. COMPLAINS OF PAIN RIGHT ELBOW PAIN, ABRSION TO RIGHT PALM, RIGHT 4TH FINGER PAD, AND BILAT KNEES. PT ON BLOOD THINNERS. DENIES HITTING HEAD OR LOC. Source: patient Exam Limitations: no limitations History of Present Illness Date Seen by Provider: Mar 28, 2018 Time Seen by Provider: 09:03 Initial Comments Here with report of falling on the road after accidentally tripping over his dog this morning. Landed on the right hand and bilateral knees. He did not hit his head. He is on blood thinners. Also hit his right elbow. He has abrasions to the right hand palmar surface and right fourth finger as well as the right elbow and bilateral knees. Did not lose consciousness. He was able to walk back to the house. He was a little nauseated initially but that has improved. Denies any significant pain right now. Tetanus is not up-to-date. Occurred: this morning (approximately one hour ago) Severity: mild Injuries/Pain Location: upper extremity, lower extremity Context: tripped Loss of Consciousness: no loss of consciousness Associated Symptoms (Fall): No Abdominal Pain; Nausea/Vomiting; No Vision Changes Allergies and Home Medications Allergies Coded Allergies: amoxicillin (Verified Allergy, Unknown, 01/16/10) Home Medications Alfuzosin HCl 10 Mg Tab.er.24h, 10 MG PO DAILY@1800, (Reported) Aspirin 81 Mg Tablet.dr, 81 MG PO DAILY, (Reported) Cholecalciferol (Vitamin D3) 1,000 Unit Tablet, 1,000 UNIT PO DAILY, (Reported) Ciprofloxacin HCl 500 Mg Tablet, 500 MG PO BID Prescribed by: SURINDER HILL on 01/29/182202 Cyanocobalamin 1,000 Mcg/Ml Inj, 1,000 MCG IJ MONTHLY, (Reported) Enalapril Maleate 10 Mg Tablet, 10 MG PO BID, (Reported) Ferrous Sulfate 325 Mg Tablet, 325 MG PO DAILY, (Reported) Fluconazole 200 Mg Tablet, 200 MG PO DAILY Prescribed by: ARMINDA KILLIAN on 12/26/17 0957 Folic Acid 1 Mg Tablet, 1 MG PO DAILY@1200, (Reported) Gabapentin 300 Mg Capsule, 300 MG PO HS, (Reported) Loratadine 10 Mg Tablet, 10 MG PO DAILY, (Reported) Metoprolol Succinate 100 Mg Tab.er.24h, 100 MG PO BID, (Reported) Metronidazole 500 Mg Tablet, 500 MG PO TID Prescribed by: CARMEL SANDERS on 01/30/182204 Multivitamin 1 Each Tablet, 1 TAB PO DAILY, (Reported) [place]-3 Fatty Acids/Fish Oil 1 Each Capsule, 1,200 MG PO TID, (Reported) Oxymetazoline HCl 15 Ml Mist, 15 ML NS DAILY, (Reported) Pantoprazole Sodium 40 Mg Tablet.dr, 40 MG PO DAILY, (Reported) Promethazine HCl 25 Mg Tablet, 25 MG PO Q8H PRN for NAUSEA/VOMITING Prescribed by: CARMEL SANDERS on 01/30/182204 Simvastatin 20 Mg Tablet, 20 MG PO DAILY @ 1200, (Reported) Zinc Amino Acid Chelate 50 Mg Tablet, 50 MG PO WITH EVENING MEAL, (Reported) Patient Home Medication List Home Medication List Reviewed: Yes Review of Systems Constitutional: see HPI; No chills, No fever Eyes: Denies Blurred Vision, Denies Decreased Acuity Respiratory: no symptoms reported Cardiovascular: no symptoms reported Gastrointestinal: No abdominal pain; nausea Musculoskeletal: see HPI, joint pain, joint swelling, muscle pain Skin: change in color, lesions Psychiatric/Neurological: No Symptoms Reported Past Mqcvpwz-Cnlbxg-Vmhimu Hx Past Med/Social Hx: Reviewed Nursing Past Med/Soc Hx Patient Social History Alcohol Use: Denies Use Recreational Drug Use: No Smoking Status: Former Smoker Type Used: Cigars Former Smoker, Quit: Jun 12, 1967 Recent Foreign Travel: No Contact w/Someone Who Travel: No Recent Infectious Disease Expo: No Recent Hopitalizations: No Immunizations Up To Date Tetanus Booster (TDap): Unknown PED Vaccines UTD: Yes Date of Pneumonia Vaccine: Jun 12, 2012 Date of Influenza Vaccine: Jul 14, 2017 Seasonal Allergies Seasonal Allergies: Yes Past Medical History Surgeries: Yes (INGUINAL HERNIA X2, COLON RESECTION, BACK) Orthopedic Respiratory: No Currently Using CPAP: No Currently Using BIPAP: No Cardiac: Yes (HX SMALL HEART ATTACK, 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, pacemaker) Hypertension Neurological: No Reproductive Disorders: No Sexually Transmitted Disease: No HIV/AIDS: No Gastrointestinal: Yes (COLON CANCER, HX INTESTIONAL ABCESS) Gastroesophageal Reflux Musculoskeletal: Yes (LUMBAR STENOSIS) Chronic Back Pain Endocrine: No Loss of Vision: Bilateral Hearing Impairment: Denies Cancer: Yes Colon What Type of Treatment Did You: Surgical Intervention Psychosocial: No Integumentary: No Blood Disorders: No Adverse Reaction/Blood Tranf: No Family Medical History Reviewed Nursing Family Hx No Pertinent Family Hx Physical Exam Vital Signs Vital Signs - First Documented 03/28/18 08:56 Temp 98.0 Pulse 79 Resp 18 B/P (MAP) 165/92 (116) Pulse Ox 96 O2 Delivery Room Air Capillary Refill : Less Than 3 Seconds General Appearance: WD/WN, no apparent distress HEENT: PERRL/EOMI, pharynx normal Neck: non-tender, full range of motion, supple, normal inspection Cardiovascular: regular rate, rhythm, no murmur Respiratory: lungs clear, normal breath sounds Gastrointestinal: non tender, soft Back: normal inspection, no CVA tenderness, no vertebral tenderness Extremities: normal range of motion, swelling (right elbow posterior aspect with hematoma.), other (multiple abrasions as described below.) Neurologic/Psychiatric: alert, oriented x 3 Skin: warm/dry, ecchymosis (right elbow, hand and bilateral knees), other ( abrasion to the posterior aspect of the right elbow. Abrasions with superficial laceration approximately 2 cm to the palmar surface of the right hand. Superficial laceration to the tip of the fourth finger approximately 1 cm ) Prema Coma Score Best Eye Response: (4) Open Spontaneously Best Verbal Response: (5) Oriented Best Motor Response: (6) Obeys Commands Progress/Results/Core Measures Results/Orders My Orders Orders - RADHA DE LA TORRE MD Elbow, Right, 3 Views (03/28/18 09:03) Dipht,Pertuss(Acell),Tet Adult (Boostrix (03/28/18 09:03) Vital Signs/I&O 03/28/18 08:56 Temp 98.0 Pulse 79 Resp 18 B/P (MAP) 165/92 (116) Pulse Ox 96 O2 Delivery Room Air Blood Pressure Mean: 116 Progress Progress Note : Progress Note Seen and evaluated. Tetanus updated. X-ray right elbow ordered. Laceration to the tip of the finger is superficial and does not require suturing. The laceration to the palmar surface is surrounded by multiple areas of abraded skin. I do not believe it would be amenable to suturing. We will secure with Steri-Strips. All wounds were cleaned by nursing and dressed with antibiotics and dressing. I did discuss with the patient regarding the x-ray findings. He retains full range of motion. This area fractured bone may be old although he doesn't remember an old injury. It certainly is not limiting his range of motion. We will go ahead and apply a sling and he will follow-up with Dr. Sorto likely the following week. I will send a copy of the chart to Dr. Sorto and Dr. Killian. Discharged home with return precautions. Patient verbalize understanding instructions and agreement with plan. Diagnostic Imaging Diagonstic Imaging: Xray Plain Films/CT/US/NM/MRI: elbow Comments VIA [facility]. [place], [place] NAME: MIS VALDES [facility] REC#: [id number] PT STATUS: REG ER : 1935 PHYSICIAN: RADHA DE LA TORRE MD ADMIT DATE: 03/28/18/ER Draft Date of Exam:03/28/18 ELBOW, RIGHT, 3 VIEWS INDICATION: Status post fall while walking dog. Tripped and landed on elbow. Swelling and pain. TECHNIQUE: 3 views of the right elbow CORRELATION STUDY: None FINDINGS: There is a bony protuberance off the lateral epicondyle of distal humerus. Margins are suggested to be somewhat sclerotic and perhaps prior injury. An acute fracture is not excluded. The radial head and proximal ulna intact. No abnormal posterior joint effusion. There is however rather prominent soft tissue swelling along the dorsal aspect of the elbow. IMPRESSION: 1. There is a separate bone fragment adjacent to the lateral epicondyle. This may very well reflect a previous injury. The possibility of acute fracture is not excluded. Correlation symptoms is recommended. There is asymmetric soft tissue swelling along the dorsal aspect of the elbow without abnormal posterior joint effusion. Dictated on workstation # [id number] Dict: 03/28/18927 Trans: 03/28/1835 LETITIA [id number] Interpreted by: MIGUEL FREDERICK DO Electronically signed by: Departure Impression Primary Impression: Nondisplaced avulsion fracture of lateral epicondyle of right humerus Qualified Codes: S42.434A - Nondisplaced fracture (avulsion) of lateral epicondyle of right humerus, initial encounter for closed fracture Additional Impression: Abrasion Disposition: 01 HOME, SELF-CARE Condition: Improved Departure-Patient Inst. Decision time for Depature: 09:59 Referrals: ARMINDA KILLIAN MD (PCP/Family) Primary Care Physician Patient Instructions: Contusion (DC), Elbow Fracture (DC), Skin Abrasions (DC) Add. Discharge Instructions: All discharge instructions reviewed with patient and/or family. Voiced understanding. There is question of old versus new small fracture of the right elbow. You should follow up with Dr. Sorto orthopedist of your choice in the next week or so. Use sling for the next several days and then as needed for pain. You may take Tylenol/acetaminophen 1000 mg every 6 hours as needed for pain. Keep dressing on finger in place for 2 days and then you may remove. Use antibiotic ointment and dressing over wounds twice daily otherwise for the next few days and then as needed. Return for worse pain, swelling, weakness, breathing problems or other concerns as needed. Copy Copies To 1: ARMINDA KILLIAN MD Copies To 2: ANNA SORTO TIMOTHY D MD Mar 28, 2018 09:41
[2018-03-28 10:08] VITALS: BP 135/95
== END 2018-03-28 10:08 | disposition home or self-care (01) ==
LOC: EDUNIT# 08:51 → ER 08:53
DX: S42.434A Nondisplaced fracture (avulsion) of lateral epicondyle of right humerus, initial encounter for closed fracture (principal); S60.511A Abrasion of right hand, initial encounter; R40.2142 Coma scale, eyes open, spontaneous, at arrival to emergency department; R40.2252 Coma scale, best verbal response, oriented, at arrival to emergency department; R40.2362 Coma scale, best motor response, obeys commands, at arrival to emergency department; K21.9 Gastro-esophageal reflux disease without esophagitis; I10 Essential (primary) hypertension; Z87.2 Personal history of diseases of the skin and subcutaneous tissue; Z23 Encounter for immunization; Z95.0 Presence of cardiac pacemaker; Z88.1 Allergy status to other antibiotic agents; Z87.891 Personal history of nicotine dependence; Z98.890 Other specified postprocedural states; Z90.49 Acquired absence of other specified parts of digestive tract; Z85.038 Personal history of other malignant neoplasm of large intestine; Z79.82 Long term (current) use of aspirin; W01.0XXA Fall on same level from slipping, tripping and stumbling without subsequent striking against object, initial encounter
CPT/HCPCS: 73080; 90471; 90715

== ENCOUNTER → 2018-06-10 | Outpatient (CLI) | payer MEDICARE ==
[~2018-06-10] VITALS: Ht 182.9 cm; Wt 98.4 kg
[~2018-06-10] MED LIST changes: +CATHETER FLUSH 10 ML SYR IV PRN; +OMG1KC PO; +REGADENOSON 0.4 MG/5 ML SYR (LEXISCAN) IV ONE
[2018-06-10 14:20] VITALS: BP 168/88
[2018-06-10 14:23] VITALS: BP 143/89
--- NOTE | 2018-06-10 21:18 | STRESS TEST ---
DATE OF SERVICE: 06/10/2018 LEXISCAN MYOVIEW STRESS TEST REPORT REFERRING PHYSICIAN: Dr. Killian. Baseline heart rate is 72. Baseline blood pressure is 168/88. Baseline EKG is sinus rhythm with ventricular paced rhythm. In summary, the patient was injected with 9.98 mCi of technetium-99 Myoview and the resting images were obtained. Then, the patient received 0.4 mg of Lexiscan followed by 30.6 mCi of technetium-99 Myoview. Throughout the test, there were no EKG changes. The resting and stress images were reviewed and compared in the short axis, horizontal long axis, and vertical long axis views. Review of the images showed diaphragmatic attenuation with mild decreased uptake involving the mid to apical inferior wall, inferoseptum and inferolateral wall and anteroapical segment. SSS is 8, SDS 3, TID value 1.08. On the gated images, the left ventricle appeared to be normal size with mild hypokinesia at the apex and inferoapical segment with calculated ejection fraction 51%. CONCLUSION: 1. The patient tolerated Lexiscan well. 2. 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 3. Extracardiac attenuation with diaphragmatic attenuation and mild ischemia involving the mid to apical inferior wall, true apex and anteroapical segment and inferoseptum. 4. Normal left ventricular size with mild hypokinesia at the apex and inferoapical segment with calculated ejection fraction 51%. Job ID: [id number] DocumentID: [id number] Dictated Date: 06/10/2018 16:59:54 Country Printer Date: 06/10/2018 21:18:00 Dictated By: VERONICA BUSCH MD
== END ==
LOC: CARD 12:40
PROVIDERS: ATTEND Physician Assistant
DX: I25.10 Atherosclerotic heart disease of native coronary artery without angina pectoris (principal); I44.2 Atrioventricular block, complete; I50.9 Heart failure, unspecified; R07.89 Other chest pain
CPT/HCPCS: 78452; 93017

== ENCOUNTER 2018-06-17 07:34 | Day surgery (SDC) | payer MEDICARE ==
[2018-06-17] VITALS (11 sets, daily range): BP systolic 117–159; BP diastolic 63–97
[~2018-06-17] VITALS: Ht 182.9 cm; Wt 94.3 kg
[~2018-06-17 07:34] MED LIST changes: -CATHETER FLUSH 10 ML SYR IV PRN; -OMG1KC PO; -REGADENOSON 0.4 MG/5 ML SYR (LEXISCAN) IV ONE
[2018-06-17] MEDS ORDERED: LIDOCAINE 1% INJ 20 ML 20 ML VIAL ONE (07:37)
[2018-06-17] MEDS ORDERED: HEParin (CATH LAB) 2,000 ML IV ONE (07:37)
[2018-06-17] MEDS ORDERED: NS IV 1000 ML 1,000 ML ONE (07:37)
--- OUTSIDE RECORDS SUMMARY | 2018-06-17 07:39 | XMS REPORT | Continuity of Care Document ---
Author Author [facility] Organization [facility] Address Unknown Phone Unavailable Allergies Active Description Code Type Severity Reaction Onset Reported/Identified Relationship to Patient Clinical Status Yes amoxicillin [id number] Drug Allergy Unknown N/A 01/16/2010 Medications There is no data. Problems Date Dx Coded Attending Type Code Diagnosis Diagnosed By 01/17/2010 Ot 272.4 HYPERLIPIDEMIA NEC/NOS 01/17/2010 Ot 401.9 HYPERTENSION NOS 01/17/2010 Ot 414.01 CORONARY ATHEROSCLEROSIS OF [place] CORON 01/17/2010 Ot 426.0 ATRIOVENT BLOCK COMPLETE [...] NOS 08/16/2011 Ot 414.01 CORONARY ATHEROSCLEROSIS OF [place] CORON 08/16/2011 Ot V12.72 PERSONAL HISTORY OF [...] NOS 02/15/2012 Ot 414.01 CORONARY ATHEROSCLEROSIS OF [place] CORON 02/15/2012 Ot 426.0 ATRIOVENT BLOCK COMPLETE [...] 11/01/2014 VERONICA BUSCH MD Ot 433.10 11/01/2014 GEORGI NORTON, ARMINDA [place] Ot 780.8 11/01/2014 ARMINDA LAUREANO MD Ot [...] PACEMAKER IN SITU 06/04/2015 SLADE NORTON, ANEUDY K Ot 564.00 UNSPEC CONSTIPATION 06/04/2015 ANEUDY JUNE MD Ot 599.0 URIN TRACT INFECTION NOS 07/21/2015 DANICA HANSON MD Ot 401.9 07/21/2015 DANICA HANSON MD Ot 412 07/21/2015 DANICA HANSON MD Ot 427.9 07/21/2015 DANICA HANSON MD Ot 724.03 07/21/2015 DANICA HANSON MD Ot V10.05 07/21/2015 DANICA HANSON MD Ot V45.01 10/10/2015 Ot 789.01 10/10/2015 Ot V45.72 06/12/2016 VERONICA BUSCH MD Ot E78.5 HYPERLIPIDEMIA, UNSPECIFIED 06/12/2016 VERONICA BUSCH MD, Ot I10 ESSENTIAL (PRIMARY) HYPERTENSION 06/12/2016 VERONICA BUSCH MD Ot I25.10 ATHSCL HEART DISEASE OF [place] CORONARY 06/12/2016 VERONICA BUSCH MD Ot I27.2 OTHER SECONDARY PULMONARY HYPERTENSION 06/12/2016 VERONICA BUSCH MD Ot I44.2 ATRIOVENTRICULAR BLOCK, COMPLETE 06/12/2016 VERONICA BUSCH MD Ot I50.22 CHRONIC SYSTOLIC (CONGESTIVE) HEART FAIL 06/12/2016 VERONICA BUSCH MD Ot R07.89 OTHER CHEST PAIN 06/12/2016 VERONICA BUSCH MD Ot R94.39 ABNORMAL RESULT OF OTHER CARDIOVASCULAR 06/12/2016 VERONICA BUSCH MD Ot Z79.899 OTHER INVOICE CODER (CURRENT) DRUG THERAPY 06/12/2016 VERONICA BUSCH MD Ot Z95.0 PRESENCE OF CARDIAC PACEMAKER 06/19/2016 VERONICA BUSCH MD Ot E78.5 HYPERLIPIDEMIA, UNSPECIFIED 06/19/2016 VERONICA BUSCH MD Ot I10 ESSENTIAL (PRIMARY) HYPERTENSION 06/19/2016 VERNOICA BUSCH MD Ot I25.10 ATHSCL HEART DISEASE OF [place] CORONARY 06/19/2016 VERONICA BUSCH MD Ot I50.9 HEART FAILURE, UNSPECIFIED 06/19/2016 VERONICA BUSCH MD Ot R07.89 OTHER CHEST PAIN 06/26/2016 VERONICA BUSCH MD Ot E78.5 HYPERLIPIDEMIA, UNSPECIFIED 06/26/2016 VERONICA BUSCH MD Ot I10 ESSENTIAL (PRIMARY) HYPERTENSION 06/26/2016 VERONICA BUSCH MD Ot I25.10 ATHSCL HEART DISEASE OF [place] CORONARY 06/26/2016 VERONICA BUSCH MD Ot I50.9 [...] NOS 09/06/2016 Ot 414.01 CORONARY ATHEROSCLEROSIS OF [place] CORON 09/06/2016 Ot 426.2 LEFT BB HEMIBLOCK [...] V74.8 SCREEN-BACTERIAL DIS NEC 09/06/2016 VERONICA BUSCH MD Ot E78.5 HYPERLIPIDEMIA, UNSPECIFIED 09/06/2016 VERONICA BUSCH MD Ot I10 ESSENTIAL (PRIMARY) HYPERTENSION 09/06/2016 VERONICA BUSCH MD Ot I25.10 ATHSCL HEART DISEASE OF [place] CORONARY 09/06/2016 VERONICA BUSCH MD Ot I50.9 HEART FAILURE, UNSPECIFIED 09/06/2016 VERONICA BUSCH MD Ot R07.89 OTHER CHEST PAIN 09/06/2016 ARMINDA LAUREANO MD, Ot D12.0 BENIGN NEOPLASM OF [place] 09/06/2016 ARMINDA LAUREANO MD, Ot K57.30 DVRTCLOS OF LG INT W/O PERFORATION OR AB 09/06/2016 ARMINDA LAUREANO MD, Ot N40.0 BENIGN PROSTATIC HYPERPLASIA WITHOUT LOW 09/06/2016 ARMINDA LAUREANO MD Ot Z12.11 ENCOUNTER FOR SCREENING FOR MALIGNANT NE 09/06/2016 ARMINDA LAUREANO MD, Ot Z85.038 PERSONAL HISTORY [...] Ot 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 12/22/2017 ARMINDA LAUREANO MD Ot R11.0 NAUSEA 12/22/2017 ARMINDA LAUREANO MD Ot Z01.818 ENCOUNTER FOR OTHER PREPROCEDURAL EXAMIN 12/22/2017 ARMINDA LAUREANO MD Ot Z80.0 FAMILY HISTORY OF MALIGNANT NEOPLASM OF 12/23/2017 ARMINDA LAUREANO MD Ot R11.0 NAUSEA [...] MD Ot I25.10 ATHSCL HEART DISEASE OF [place] CORONARY 12/26/2017 ARMINDA LAUREANO MD Ot K29.70 GASTRITIS, UNSPECIFIED, WITHOUT BLEEDING 12/26/2017 ARMINDA LAUREANO MD Ot M70.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 BURSITIS, LEFT HIP 12/26/2017 ARMINDA LAUREANO MD Ot Z79.02 [facility] (CURRENT) USE OF ANTITHROMBOTI 12/26/2017 ARMINDA LAUREANO MD Ot Z79.82 INVOICE CODER (CURRENT) USE OF ASPIRIN 12/26/2017 ARMINDA LAUREANO MD Ot Z79.899 OTHER [facility] (CURRENT) DRUG THERAPY 12/26/2017 ARMINDA LAUREANO MD Ot Z95.0 PRESENCE OF CARDIAC PACEMAKER 12/29/2017 ARMINDA LAUREANO MD Ot B37.81 CANDIDAL ESOPHAGITIS 12/29/2017 ARMINDA LAUREANO MD Ot E78.5 HYPERLIPIDEMIA, UNSPECIFIED 12/29/2017 ARMINDA LAUREANO MD Ot I10 ESSENTIAL (PRIMARY) HYPERTENSION 12/29/2017 ARMINDA LAUREANO MD Ot I25.10 ATHSCL HEART DISEASE OF [place] CORONARY 12/29/2017 ARMINDA LAUREANO MD Ot K29.70 GASTRITIS, UNSPECIFIED, WITHOUT BLEEDING 12/29/2017 ARMINDA LAUREANO MD Ot M70.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 BURSITIS, LEFT HIP 12/29/2017 ARMINDA LAUREANO MD Ot Z79.02 [facility] (CURRENT) USE OF ANTITHROMBOTI 12/29/2017 ARMINDA LAUREANO MD Ot Z79.82 [facility] (CURRENT) USE OF ASPIRIN 12/29/2017 ARMINDA LAUREANO MD Ot Z79.899 OTHER INVOICE CODER (CURRENT) DRUG THERAPY 12/29/2017 ARMINDA LAUREANO MD Ot Z95.0 PRESENCE OF CARDIAC PACEMAKER 01/29/2018 SURINDER HILL MD Ot A08.4 VIRAL INTESTINAL INFECTION, UNSPECIFIED 01/29/2018 SURINDER HILL MD, Ot I10 ESSENTIAL (PRIMARY) HYPERTENSION 01/29/2018 SURINDER HILL MD Ot I25.2 OLD MYOCARDIAL INFARCTION 01/29/2018 SURINDER HILL MD Ot K21.9 GASTRO-ESOPHAGEAL REFLUX DISEASE WITHOUT 01/29/2018 SURINDER HILL MD Ot N39.0 URINARY TRACT INFECTION, SITE NOT SPECIF 01/29/2018 SURINDER HILL MD Ot R19.7 DIARRHEA, UNSPECIFIED 01/29/2018 SURINDER HILL MD Ot Z79.82 [facility] (CURRENT) USE OF ASPIRIN 01/29/2018 SURINDER HILL MD Ot Z85.038 PERSONAL HISTORY OF MALIGNANT NEOPLASM O 01/29/2018 SURINDER HILL MD Ot Z87.891 PERSONAL HISTORY OF NICOTINE DEPENDENCE 01/29/2018 SURINDER HILL MD Ot Z88.0 ALLERGY STATUS TO PENICILLIN 01/29/2018 SURINDER HILL MD Ot Z90.49 ACQUIRED ABSENCE OF OTHER SPECIFIED PART 01/29/2018 SURINDER HILL MD Ot Z93.3 COLOSTOMY STATUS 01/29/2018 SURINDER HILL MD Ot Z95.0 PRESENCE OF CARDIAC PACEMAKER 01/30/2018 CARMEL SANDERS APRN Ot I10 ESSENTIAL (PRIMARY) HYPERTENSION 01/30/2018 CARMEL SANDERS APRN Ot I25.2 OLD MYOCARDIAL INFARCTION 01/30/2018 CARMEL SANDERS APRN Ot K21.9 GASTRO-ESOPHAGEAL REFLUX DISEASE WITHOUT 01/30/2018 CARMEL SANDERS APRN Ot K52.9 NONINFECTIVE GASTROENTERITIS AND COLITIS 01/30/2018 CARMEL SANDERS APRN Ot R06.6 HICCOUGH 01/30/2018 CARMEL SANDERS APRN Ot R19.7 DIARRHEA, UNSPECIFIED 01/30/2018 CARMEL SANDERS APRN Ot Z79.82 [facility] (CURRENT) USE OF ASPIRIN 01/30/2018 CARMEL SANDERS TRACK OILER Ot Z85.038 PERSONAL HISTORY OF MALIGNANT NEOPLASM O 01/30/2018 CARMEL SANDERS TRACK OILER Ot Z87.19 PERSONAL HISTORY OF OTHER DISEASES OF TH 01/30/2018 CARMEL SANDERS TRACK OILER Ot Z87.891 PERSONAL HISTORY OF NICOTINE DEPENDENCE 01/30/2018 CARMEL SANDERS APRN Ot Z88.0 ALLERGY STATUS TO PENICILLIN 01/30/2018 CARMEL SANDERS TRACK OILER Ot Z90.49 ACQUIRED ABSENCE OF OTHER SPECIFIED PART 01/30/2018 CARMEL SANDERS APRN Ot Z90.89 ACQUIRED ABSENCE OF OTHER ORGANS 01/30/2018 CARMEL SANDERS APRN Ot Z93.3 COLOSTOMY STATUS 01/30/2018 CARMEL SANDERS APRN Ot Z95.0 PRESENCE OF CARDIAC PACEMAKER 01/30/2018 Ot 397.0 TRICUSPID VALVE DISEASE 01/30/2018 Ot 401.9 HYPERTENSION NOS 01/30/2018 Ot 424.0 MITRAL VALVE DISORDER 01/30/2018 Ot 426.3 LEFT BB BLOCK NEC 01/30/2018 Ot 428.0 CONGESTIVE HEART FAILURE NOS 01/30/2018 Ot V45.01 CARDIAC PACEMAKER IN SITU 01/30/2018 ARMINDA LAUREANO MD Ot V72.84 EXAM PRE-OPERATIVE NOS 01/30/2018 VERONICA BUSCH MD Ot 272.4 HYPERLIPIDEMIA NEC/NOS 01/30/2018 VERONICA BUSCH MD Ot 401.9 HYPERTENSION NOS 01/30/2018 VERONICA BUSCH MD Ot 414.00 CORON ATHEROSCLER NOS TYPE VESSEL, NATIV 01/30/2018 VERONICA BUSCH MD Ot 426.0 ATRIOVENT BLOCK COMPLETE 01/30/2018 VERONICA BUSCH MD Ot 426.3 LEFT BB BLOCK NEC 01/30/2018 VERONICA BUSCH MD Ot 433.10 CAROTID ARTERY OCCLUSION W O CEREBRAL IN 01/30/2018 ARMINDA LAUREANO MD Ot 780.8 GENERALIZED HYPERHIDROSIS 01/30/2018 ARMINDA LAUREANO MD Ot 791.9 ABN URINE FINDINGS NEC 01/30/2018 ARMINDA LAUREANO MD Ot V72.84 EXAM PRE-OPERATIVE NOS 01/30/2018 VERONICA BUSCH MD Ot 272.4 HYPERLIPIDEMIA NEC/NOS 01/30/2018 VERONICA BUSCH MD Ot 401.9 HYPERTENSION NOS 01/30/2018 VERONICA BUSCH MD Ot 414.00 CORON ATHEROSCLER NOS TYPE VESSEL, NATIV 01/30/2018 VERONICA BUSCH MD Ot 428.0 CONGESTIVE HEART FAILURE NOS 01/30/2018 VERONICA BUSCH MD Ot 433.10 CAROTID ARTERY OCCLUSION W O CEREBRAL IN 01/30/2018 VERONICA BUSCH MD Ot 272.4 HYPERLIPIDEMIA NEC/NOS 01/30/2018 VERONICA BUSCH MD Ot 401.9 HYPERTENSION NOS 01/30/2018 VERONICA BUSCH MD Ot 414.00 CORON ATHEROSCLER NOS TYPE VESSEL, NATIV 01/30/2018 VERONICA BUSCH MD Ot 428.0 CONGESTIVE HEART FAILURE NOS 01/30/2018 VERONICA BUSCH MD Ot 433.10 CAROTID ARTERY OCCLUSION W O CEREBRAL IN 01/30/2018 DANICA HANSON MD Ot 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, LUMBAR REG, W/OUT NEURO 01/30/2018 DANICA HANSON MD Ot V72.84 EXAM PRE-OPERATIVE NOS 01/30/2018 DANICA HANSON MD Ot V74.8 SCREEN-BACTERIAL DIS NEC 01/30/2018 VERONICA BUSCH MD Ot E78.5 HYPERLIPIDEMIA, UNSPECIFIED 01/30/2018 VERONICA BUSCH MD Ot I10 ESSENTIAL (PRIMARY) HYPERTENSION 01/30/2018 VERONICA BUSCH MD Ot I25.10 ATHSCL HEART DISEASE OF [place] CORONARY 01/30/2018 VERONICA BUSCH MD Ot I50.9 HEART FAILURE, UNSPECIFIED 01/30/2018 VERONICA BUSCH MD Ot R07.89 OTHER CHEST PAIN 02/01/2018 SURINDER HILL MD Ot A08.4 VIRAL INTESTINAL INFECTION, UNSPECIFIED 02/01/2018 SURINDER HILL MD Ot I10 ESSENTIAL (PRIMARY) HYPERTENSION 02/01/2018 SURINDER HILL MD Ot I25.2 OLD MYOCARDIAL INFARCTION 02/01/2018 SURINDER HILL MD Ot K21.9 GASTRO-ESOPHAGEAL REFLUX DISEASE WITHOUT 02/01/2018 SURINDER HILL MD Ot N39.0 URINARY TRACT INFECTION, SITE NOT SPECIF 02/01/2018 SURINDER HILL MD Ot R19.7 DIARRHEA, UNSPECIFIED 02/01/2018 SURINDER HILL MD Ot Z79.82 INVOICE [facility] (CURRENT) USE OF ASPIRIN 02/01/2018 SURINDER HILL MD Ot Z85.038 PERSONAL HISTORY OF MALIGNANT NEOPLASM O 02/01/2018 SURINDER HILL MD Ot Z87.891 PERSONAL HISTORY OF NICOTINE DEPENDENCE 02/01/2018 SURINDER HILL MD Ot Z88.0 ALLERGY STATUS TO PENICILLIN 02/01/2018 SURINDER HILL MD Ot Z90.49 ACQUIRED ABSENCE OF OTHER SPECIFIED PART 02/01/2018 SURINDER HILL MD Ot Z93.3 COLOSTOMY STATUS 02/01/2018 SURINDER HILL MD Ot Z95.0 PRESENCE OF CARDIAC PACEMAKER 02/02/2018 CARMEL SANDERS APRN Ot I10 ESSENTIAL (PRIMARY) HYPERTENSION 02/02/2018 CARMEL SANDERS APRN Ot I25.2 OLD MYOCARDIAL INFARCTION 02/02/2018 CARMEL SANDERS APRN Ot K21.9 GASTRO-ESOPHAGEAL REFLUX DISEASE WITHOUT 02/02/2018 CARMEL SANDERS APRN Ot K52.9 NONINFECTIVE GASTROENTERITIS AND COLITIS 02/02/2018 CARMEL SANDERS APRN Ot R06.6 HICCOUGH 02/02/2018 CARMEL SANDERS APRN Ot R19.7 DIARRHEA, UNSPECIFIED 02/02/2018 CARMEL SANDERS APRN Ot Z79.82 [facility] (CURRENT) USE OF ASPIRIN 02/02/2018 CARMEL ASNDERS APRN Ot Z85.038 PERSONAL HISTORY OF MALIGNANT NEOPLASM O 02/02/2018 CARMEL SANDERS APRN Ot Z87.19 PERSONAL HISTORY OF OTHER DISEASES OF TH 02/02/2018 CARMEL SANDERS APRN Ot Z87.891 PERSONAL HISTORY OF NICOTINE DEPENDENCE 02/02/2018 CARMEL SANDERS APRN Ot Z88.0 ALLERGY STATUS TO PENICILLIN 02/02/2018 CARMEL SANDERS APRN Ot Z90.49 ACQUIRED ABSENCE OF OTHER SPECIFIED PART 02/02/2018 CARMEL SANDERS APRN Ot Z90.89 ACQUIRED ABSENCE OF OTHER ORGANS 02/02/2018 CARMEL SANDERS APRN Ot Z93.3 COLOSTOMY STATUS 02/02/2018 CARMEL SANDERS APRN Ot Z95.0 PRESENCE OF CARDIAC PACEMAKER 03/28/2018 RADHA DE LA TORRE MD Ot I10 ESSENTIAL (PRIMARY) HYPERTENSION 03/28/2018 RADHA DE LA TORRE MD, Ot K21.9 GASTRO-ESOPHAGEAL REFLUX DISEASE WITHOUT 03/28/2018 RADHA DE LA TORRE MD, Ot M25.521 PAIN IN RIGHT ELBOW 03/28/2018 RADHA DE LA TORRE MD, Ot R40.2142 COMA SCALE, EYES OPEN, SPONTANEOUS, EMR 03/28/2018 RADHA DE LA TORRE MD, Ot R40.2252 COMA SCALE, BEST VERBAL RESPONSE, ORIENT 03/28/2018 RADHA DE LA TORRE MD, Ot R40.2362 COMA SCALE, BEST MOTOR RESPONSE, OBEYS C 03/28/2018 RADHA DE LA TORRE MD, Ot S42.434A NONDISP FX OF LATERAL EPICONDYLE OF R HU 03/28/2018 RADHA DE LA TORRE MD, Ot S60.511A ABRASION OF RIGHT HAND, INITIAL ENCOUNTE 03/28/2018 RADHA DE LA TORRE MD Ot W01.0XXA FALL SAME LEV FROM SLIP/TRIP W/O STRIKE 03/28/2018 RADHA DE LA TORRE MD Ot Z23 ENCOUNTER FOR IMMUNIZATION 03/28/2018 RADHA DE LA TORRE MD Ot Z79.82 INVOICE CODER (CURRENT) USE OF ASPIRIN 03/28/2018 RADHA DE LA TORRE MD Ot Z85.038 PERSONAL HISTORY OF MALIGNANT NEOPLASM O 03/28/2018 RADHA DE LA TORRE MD, Ot Z87.2 PERSONAL HISTORY OF DISEASES OF THE SKIN 03/28/2018 RADHA DE LA TORRE MD Ot Z87.891 PERSONAL HISTORY OF NICOTINE DEPENDENCE 03/28/2018 RADHA DE LA TORRE MD Ot Z88.1 ALLERGY STATUS TO OTHER ANTIBIOTIC AGENT 03/28/2018 RADHA DE LA TORRE MD Ot Z90.49 ACQUIRED ABSENCE OF OTHER SPECIFIED PART 03/28/2018 RADHA DE LA TORRE MD Ot Z95.0 PRESENCE OF CARDIAC PACEMAKER 03/28/2018 RADHA DE LA TORRE MD Ot Z98.890 OTHER SPECIFIED POSTPROCEDURAL STATES 03/31/2018 RADHA DE LA TORRE MD Ot I10 ESSENTIAL (PRIMARY) HYPERTENSION 03/31/2018 RADHA DE LA TORRE MD Ot K21.9 GASTRO-ESOPHAGEAL REFLUX DISEASE WITHOUT 03/31/2018 RADHA DE LA TORRE MD Ot M25.521 PAIN IN RIGHT ELBOW 03/31/2018 RADHA DE LA TORRE MD Ot R40.2142 COMA SCALE, EYES OPEN, SPONTANEOUS, EMR 03/31/2018 RADHA DE LA TORRE MD, Ot R40.2252 COMA SCALE, BEST VERBAL RESPONSE, ORIENT 03/31/2018 RADHA DE LA TORRE MD, Ot R40.2362 COMA SCALE, BEST MOTOR RESPONSE, OBEYS C 03/31/2018 RADHA DE LA TORRE MD Ot S42.434A NONDISP FX OF LATERAL EPICONDYLE OF R HU 03/31/2018 RADHA DE LA TORRE MD Ot S60.511A ABRASION OF RIGHT HAND, INITIAL ENCOUNTE 03/31/2018 RADHA DE LA TORRE MD, Ot W01.0XXA FALL SAME LEV FROM SLIP/TRIP W/O STRIKE 03/31/2018 RADHA DE LA TORRE MD, Ot Z23 ENCOUNTER FOR IMMUNIZATION 03/31/2018 RADHA DE LA TORRE MD Ot Z79.82 INVOICE CODER (CURRENT) USE OF ASPIRIN 03/31/2018 RADHA DE LA TORRE MD Ot Z85.038 PERSONAL HISTORY OF MALIGNANT NEOPLASM O 03/31/2018 RADHA DE LA TORRE MD Ot Z87.2 PERSONAL HISTORY OF DISEASES OF THE SKIN 03/31/2018 RADHA DE LA TORRE MD Ot Z87.891 PERSONAL HISTORY OF NICOTINE DEPENDENCE 03/31/2018 RADHA DE LA TORRE MD Ot Z88.1 ALLERGY STATUS TO OTHER ANTIBIOTIC AGENT 03/31/2018 RADHA DE LA TORRE MD Ot Z90.49 ACQUIRED ABSENCE OF OTHER SPECIFIED PART 03/31/2018 RADHA DE LA TORRE MD Ot Z95.0 PRESENCE OF CARDIAC PACEMAKER 03/31/2018 RADHA DE LA TORRE MD Ot Z98.890 OTHER SPECIFIED POSTPROCEDURAL STATES 04/03/2018 RADHA DE LA TORRE MD Ot I10 ESSENTIAL (PRIMARY) HYPERTENSION 04/03/2018 RADHA DE LA TORRE MD Ot K21.9 GASTRO-ESOPHAGEAL REFLUX DISEASE WITHOUT 04/03/2018 RADHA DE LA TORRE MD Ot M25.521 PAIN IN RIGHT ELBOW 04/03/2018 RADHA DE LA TORRE MD Ot R40.2142 COMA SCALE, EYES OPEN, SPONTANEOUS, EMR 04/03/2018 NOME MD, RADHA D Ot R40.2252 COMA SCALE, BEST VERBAL RESPONSE, ORIENT 04/03/2018 RADHA DE LA TORRE MD, Ot R40.2362 COMA SCALE, BEST MOTOR RESPONSE, OBEYS C 04/03/2018 RADHA DE LA TORRE MD Ot S42.434A NONDISP FX OF LATERAL EPICONDYLE OF R HU 04/03/2018 RADHA DE LA TORRE MD Ot S60.511A ABRASION OF RIGHT HAND, INITIAL ENCOUNTE 04/03/2018 RADHA DE LA TORRE MD Ot W01.0XXA FALL SAME LEV FROM SLIP/TRIP W/O STRIKE 04/03/2018 RADHA DE LA TORRE MD Ot Z23 ENCOUNTER FOR IMMUNIZATION 04/03/2018 RADHA DE LA TORRE MD Ot Z79.82 INVOICE CODER (CURRENT) USE OF ASPIRIN 04/03/2018 RADHA DE LA TORRE MD Ot Z85.038 PERSONAL HISTORY OF MALIGNANT NEOPLASM O 04/03/2018 RADHA DE LA TORRE MD, Ot Z87.2 PERSONAL HISTORY OF DISEASES OF THE SKIN 04/03/2018 RADHA DE LA TORRE MD Ot Z87.891 PERSONAL HISTORY OF NICOTINE DEPENDENCE 04/03/2018 RADHA DE LA TORRE MD, Ot Z88.1 ALLERGY STATUS TO OTHER ANTIBIOTIC AGENT 04/03/2018 RADHA DE LA TORRE MD Ot Z90.49 ACQUIRED ABSENCE OF OTHER SPECIFIED PART 04/03/2018 RADHA DE LA TORRE MD Ot Z95.0 PRESENCE OF CARDIAC PACEMAKER 04/03/2018 RADHA DE LA TORRE MD Ot Z98.890 OTHER SPECIFIED POSTPROCEDURAL STATES 06/09/2018 Ot 397.0 TRICUSPID VALVE DISEASE 06/09/2018 Ot 401.9 HYPERTENSION NOS 06/09/2018 Ot 424.0 MITRAL VALVE DISORDER 06/09/2018 Ot 426.3 LEFT BB BLOCK NEC 06/09/2018 Ot 428.0 CONGESTIVE HEART FAILURE NOS 06/09/2018 Ot V45.01 CARDIAC PACEMAKER IN SITU 06/09/2018 GEORGI NORTON, ARMINDA [place] Ot V72.84 EXAM PRE-OPERATIVE NOS 06/09/2018 VERONICA BUSCH MD Ot 272.4 HYPERLIPIDEMIA NEC/NOS 06/09/2018 VERONICA BUSCH MD Ot 401.9 HYPERTENSION NOS 06/09/2018 VERONICA BUSCH MD Ot 414.00 CORON ATHEROSCLER NOS TYPE VESSEL, NATIV 06/09/2018 VERONICA BUSCH MD Ot 426.0 ATRIOVENT BLOCK COMPLETE 06/09/2018 VERONICA BUSCH MD Ot 426.3 LEFT BB BLOCK NEC 06/09/2018 VERONICA BUSCH MD Ot 433.10 CAROTID ARTERY OCCLUSION W O CEREBRAL IN 06/09/2018 ARMINDA LAUREANO MD Ot 780.8 GENERALIZED HYPERHIDROSIS 06/09/2018 ARMINDA LAUREANO MD Ot 791.9 ABN URINE FINDINGS NEC 06/09/2018 ARMINDA LAUREANO MD Ot V72.84 EXAM PRE-OPERATIVE NOS 06/09/2018 VERONICA BUSCH MD Ot 272.4 HYPERLIPIDEMIA NEC/NOS 06/09/2018 VERONICA BUSCH MD Ot 401.9 HYPERTENSION NOS 06/09/2018 VERONICA BUSCH MD Ot 414.00 CORON ATHEROSCLER NOS TYPE VESSEL, NATIV 06/09/2018 VERONICA BUSCH MD Ot 428.0 CONGESTIVE HEART FAILURE NOS 06/09/2018 VERONICA BUSCH MD Ot 433.10 CAROTID ARTERY OCCLUSION W O CEREBRAL IN 06/09/2018 VERONICA BUSCH MD Ot 272.4 HYPERLIPIDEMIA NEC/NOS 06/09/2018 VERONICA BUSCH MD Ot 401.9 HYPERTENSION NOS 06/09/2018 VERONICA BUSCH MD Ot 414.00 CORON ATHEROSCLER NOS TYPE VESSEL, NATIV 06/09/2018 VERONICA BUSCH MD Ot 428.0 CONGESTIVE HEART FAILURE NOS 06/09/2018 VERONICA BUSCH MD Ot 433.10 CAROTID ARTERY OCCLUSION W O CEREBRAL IN 06/09/2018 DANICA HANSON MD Ot 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, LUMBAR REG, W/OUT NEURO 06/09/2018 DANICA HANSON MD Ot V72.84 EXAM PRE-OPERATIVE NOS 06/09/2018 DANICA HANSON MD Ot V74.8 SCREEN-BACTERIAL DIS NEC 06/09/2018 VERONICA BUSCH MD Ot E78.5 HYPERLIPIDEMIA, UNSPECIFIED 06/09/2018 VERONICA BUSHC MD Ot I10 ESSENTIAL (PRIMARY) HYPERTENSION 06/09/2018 VERONICA BUSCH MD Ot I25.10 ATHSCL HEART DISEASE OF [place] CORONARY 06/09/2018 VERONICA BUSCH MD Ot I50.9 HEART FAILURE, UNSPECIFIED 06/09/2018 NARAYAN NORTON, VERONICA Javed Ot R07.89 OTHER CHEST PAIN 06/11/2018 IDALMIS PARIKH Ot I25.10 ATHSCL HEART DISEASE OF [place] CORONARY 06/11/2018 IDALMIS PARIKH Ot I44.2 ATRIOVENTRICULAR BLOCK, COMPLETE 06/11/2018 IDALMIS PARIKH Ot I50.9 HEART FAILURE, UNSPECIFIED 06/11/2018 IDALMSI PARIKH Ot R07.89 OTHER CHEST PAIN Procedures Code Description Performed By Performed On 37.72 INITIAL INSERT TRANS LEADS INTO ATRIUM 01/16/2010 37.83 INITIAL INSERTION OF DUAL- CHAMBER DEVICE 01/16/2010 89.45 PACEMAKER RATE CHECK 01/17/2010 17.33 LAPAROSCOPIC RIGHT HEMICOLECTOMY 08/13/2011 45.93 [id number] BOWEL NEC 08/13/2011 54.4 DESTRUCT PERITONEAL TISS [...] culture - 06/12/16 07:24 Bacterial urine culture [id number] NRG COLONY COUNT 10,000/ML - 100,000/ML NRG [...] FTX;REPORTABLE PLUS NORMAL PHI NRG Fungus culture [id number] NRG Complete blood count (CBC) with automated [...] culture - 01/29/18 18:58 URINE CULTURE RESULTS <10,000/ML NRG Complete blood count (CBC) with automated white blood cell (WBC) differential - 01/30/18 19:22 Blood leukocytes automated count (number/volume) 4.8 10*3/uL 4.3-11.0 Blood erythrocytes automated count (number/volume) 4.85 10*6/uL 4.35-5.85 Venous blood hemoglobin measurement (mass/volume) 15.8 g/dL 13.3-17.7 Blood hematocrit (volume fraction) 45 % 40-54 Automated erythrocyte mean corpuscular volume 93 [foz_us] 80-99 Automated erythrocyte mean corpuscular hemoglobin (mass per erythrocyte) 33 pg 25-34 Automated erythrocyte mean corpuscular hemoglobin concentration measurement ( mass/volume) 35 g/dL 32-36 Automated erythrocyte distribution width ratio 13.3 % 10.0-14.5 Automated blood platelet count (count/volume) 89 10*3/uL 130-400 Automated blood platelet mean volume measurement 10.2 [foz_us] 7.4-10.4 Automated blood neutrophils/100 leukocytes 76 % 42-75 Automated blood lymphocytes/100 leukocytes 14 % 12-44 Blood monocytes/100 leukocytes 11 % 0-12 Automated blood eosinophils/100 leukocytes 0 % 0-10 Automated blood basophils/100 leukocytes 0 % 0-10 Blood neutrophils automated count (number/volume) 3.6 10*3 1.8-7.8 Blood lymphocytes automated count (number/volume) 0.7 10*3 1.0-4.0 Blood monocytes automated count (number/volume) 0.5 10*3 0.0-1.0 Automated eosinophil count 0.0 10*3/uL 0.0-0.3 Automated blood basophil count (count/volume) 0.0 10*3/uL 0.0-0.1 Comprehensive metabolic panel - 01/30/18 19:22 Serum or plasma sodium measurement (moles/volume) 132 mmol/L 135-145 Serum or plasma potassium measurement (moles/volume) 3.7 mmol/L 3.6-5.0 Serum or plasma chloride measurement (moles/volume) 101 mmol/L 98-107 Carbon dioxide 21 mmol/L 21-32 Serum or plasma anion gap determination (moles/volume) 10 mmol/L 5-14 Serum or plasma urea nitrogen measurement (mass/volume) 37 mg/dL 7-18 Serum or plasma creatinine measurement (mass/volume) 1.63 mg/dL 0.60-1.30 Serum or plasma urea nitrogen/creatinine mass ratio 23 NRG Serum or plasma creatinine measurement with calculation of estimated glomerular filtration rate 41 NRG Serum or plasma glucose measurement (mass/volume) 131 mg/dL 70-105 Serum or plasma calcium measurement (mass/volume) 9.0 mg/dL 8.5-10.1 Serum or plasma total bilirubin measurement (mass/volume) 1.7 mg/dL 0.1-1.0 Serum or plasma alkaline phosphatase measurement (enzymatic activity/volume) 44 U/L 40-136 Serum or plasma aspartate aminotransferase measurement (enzymatic activity/ volume) 28 U/L 5-34 Serum or plasma alanine aminotransferase measurement (enzymatic activity/volume ) 28 U/L 0-55 Serum or plasma protein measurement (mass/volume) 6.7 g/dL 6.4-8.2 Serum or plasma albumin measurement (mass/volume) 4.0 g/dL 3.2-4.5 Complete urinalysis with reflex to culture - 01/30/18 19:31 Urine color determination YELLOW NRG Urine clarity determination SLIGHTLY CLOUDY NRG Urine pH measurement by test strip 5 5-9 Specific gravity of urine by test strip 1.025 1.016- 1.022 Urine protein assay by test strip, semi-quantitative 3+ NEGATIVE Urine glucose detection by automated test strip NEGATIVE NEGATIVE Erythrocytes detection in urine sediment by light microscopy 3+ NEGATIVE Urine ketones detection by automated test strip NEGATIVE NEGATIVE Urine nitrite detection by test strip NEGATIVE NEGATIVE Urine total bilirubin detection by test strip NEGATIVE NEGATIVE Urine urobilinogen measurement by automated test strip (mass/volume) NORMAL NORMAL Urine leukocyte esterase detection by dipstick 1+ NEGATIVE Automated urine sediment erythrocyte count by microscopy (number/high power field) [HPF] NRG Automated urine sediment leukocyte count by microscopy (number/high power field ) [HPF] NRG Bacteria detection in urine sediment by light microscopy NONE NRG Crystals detection in urine sediment by light microscopy PRESENT NRG Casts detection in urine sediment by light microscopy NONE NRG Mucus detection in urine sediment by light microscopy NEGATIVE NRG Complete urinalysis with reflex to culture NO NRG Amorphous sediment detection in urine sediment by light microscopy FEW ALIN URATES NRG C DIFFICILE AG + TOXIN A/B. - 01/30/18 19:55 RESULTS NEGATIVE FOR ANTIGEN AND TOXIN A/B NRG Stool bacteria identification by culture - 01/30/18 19:55 FREE TEXT EXTERNAL WILL SEND TO STATE NRG QUANTITY OF GROWTH Scant Growth NRG Stool bacteria identification by culture [id number] NRG NOT CULTURED VIBRIOTYERS VIBRIO AND YERSINIA NOT ROUTINELY CULTURED FOR IN THIS LAB NRG NEGATIVE FOR 0157 NEGATIVE FOR E COLI 0157 NRG NEGATIVE FOR CAMPY NEGATIVE FOR CAMPYLOBACTER NRG NEGATIVE FOR SHIGELLA NEGATIVE FOR SHIGELLA NRG FREE TEXT REPORTABLE [facility] REPORT: SALMONELLA ENTERICA NRG Encounters ACCT No. Visit Date/Time Discharge Status Pt. Type Provider Facility Loc./Unit Complaint [id number] 06/10/2018 12:40:00 06/10/2018 23:59:59 CLS Preadmit IDALMIS PARIKH [facility] CARD CAD,CHB,CHF, CAROTID ARTERY STENOSIS,CHEST PAIN SYN [id number] 05/29/2018 10:10:00 05/29/2018 23:59:59 CLS Preadmit IDALMIS PARIKH [facility] CARD CAD,CHB,CHF, CAROTID ARTERY STENOSIS,CHEST PAIN SYN [id number] 03/28/2018 08:53:00 03/28/2018 10:08:00 DIS Emergency WIL NORTON, RADHA [place] [facility] ER FELL ON SIDEWALK/ ON STREET IN FRONT OF HOUSE [id number] 01/30/2018 18:36:00 01/30/2018 23:01:00 DIS Emergency CARMEL SANDERS APRN [facility] ER DIARRHEA [id number] 01/29/2018 17:04:00 01/29/2018 22:12:00 DIS Emergency SURINDER HILL MD [facility] ER DIARRHEA [id number] 12/26/2017 08:19:00 12/26/2017 10:55:00 DIS Outpatient GEORGI NORTON, ARMINDA [place] [facility] ENDO 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 [id number] 12/22/2017 06:17:00 12/22/2017 15:08:00 DIS Outpatient ARMINDA LAUREANO MD [facility] PREOP EGD [id number] 09/06/2016 08:26:00 09/06/2016 11:35:00 DIS Outpatient ARMINDA LAUREANO MD [facility] HISTORY COLON CANCER [id number] 09/04/2016 05:42:00 09/04/2016 14:33:00 DIS Outpatient ARMINDA LAUREANO MD [facility] PREOP HISTORY COLON CANCER [id number] 06/12/2016 06:56:00 06/12/2016 14:00:00 DIS Outpatient VERONICA BUSCH MD [facility] CATH CP,SOB,CAD,HTN [id number] 05/29/2016 07:35:00 05/29/2016 23:59:59 CLS Outpatient VERONICA BUSCH MD [facility] CARD CP,CAD,CHF [id number] 06/04/2015 06:30:00 06/04/2015 08:58:00 DIS Emergency ANEUDY JUNE MD [facility] ER CONGESTION,CONSTIPATION [id number] 05/29/2015 09:45:00 05/30/2015 13:58:00 DIS Outpatient DANICA HANSON MD [facility] SDC STENOSIS [id number] 05/17/2015 07:46:00 05/17/2015 23:59:59 CLS Outpatient DANICA HANSON MD [facility] PREOP STENOSIS [id number] 01/12/2015 08:09:00 01/12/2015 13:00:00 DIS Outpatient DANICA HANSON MD [facility] RAD STENOSIS [id number] 11/16/2014 07:45:00 11/16/2014 23:59:59 CLS Outpatient VERONICA BUSCH MD [facility] CARD CAD,CHF,HLP [id number] 11/01/2014 13:44:00 11/01/2014 23:59:59 CLS Outpatient VERONICA BUSCH MD [facility] CARD CAD,CHF,HTN,HLP [id number] 04/05/2014 07:25:00 04/05/2014 09:55:00 DIS Outpatient ARMINDA LAUREANO MD [facility] FOLLOW UP TO COLON CANCER [id number] 03/30/2014 07:27:00 03/30/2014 23:59:59 CLS Outpatient ARMINDA LAUREANO MD [facility] PREOP FOLLOW UP TO COLON CANCER [id number] 11/17/2013 14:46:00 11/17/2013 23:59:59 CLS Outpatient ARMINDA LAUREANO MD [facility] LAB NIGHT [employer]WEATS [employer] [id number] 09/15/2013 07:31:00 09/15/2013 23:59:59 CLS Outpatient VERONICA BUSCH MD [facility] RAD CAD,CHB,CAROTID ARTERY STENOSIS,HTN [id number] 07/20/2013 07:27:00 07/20/2013 10:47:00 DIS Outpatient ARMINDA LAUREANO MD [facility] EROSIVE ESOPHAGAOUS [id number] 07/15/2013 07:29:00 07/15/2013 23:59:59 CLS Outpatient ARMINDA LAUREANO MD [facility] PREOP EROSIVE ESAPHOGEOUS [id number] 06/06/2013 13:12:00 06/06/2013 23:59:59 CLS Outpatient [id number] 06/17/2018 10:00:00 PEN Preadmit VERONICA BUSCH MD [facility] CATH CP, SOB, CAD, HTN, HLP [id number] 11/01/2014 13:59:00 Document Registration [id number] 11/01/2014 13:59:00 Document Registration [id number] 01/20/2013 13:42:00 Document Registration [id number] 07/27/2012 09:19:00 Document Registration [id number] 07/24/2012 08:09:00 Document Registration [id number] 02/15/2012 06:25:00 Document Registration [id number] 02/14/2012 09:26:00 Document Registration [id number] 02/11/2012 11:04:00 Document Registration [id number] 02/10/2012 08:45:00 Document Registration [id number] 09/16/2011 13:25:00 Document Registration [id number] 08/26/2011 17:55:00 Document Registration [id number] 08/26/2011 16:05:00 Document Registration [id number] 08/13/2011 05:41:00 Document Registration [id number] 08/08/2011 13:04:00 Document Registration [id number] 07/19/2011 06:57:00 Document Registration [id number] 03/18/2011 07:56:00 Document Registration [id number] 03/11/2011 08:15:00 Document Registration [id number] 02/08/2011 00:00:00 Document Registration [id number] 11/09/2010 10:51:00 Document Registration [id number] 09/20/2010 08:23:00 Document Registration [id number] 01/16/2010 13:09:00 Document Registration [id number] 10/31/2009 09:16:00 Document Registration
[2018-06-17] MEDS ORDERED: NS IV 1000 ML 1,000 ML IV SCH ×2 (08:00→10:05)
[2018-06-17 08:09] LABS: HEMOGLOBIN 15.8 G/DL (13.3-17.7); MEAN PLATELET VOLUME 10.4 FL (7.4-10.4); RED BLOOD COUNT 4.89 10^6/uL (4.35-5.85); RED CELL DISTRIBUTION WIDTH 12.5 % (10.0-14.5)
--- NOTE | 2018-06-17 08:15 | Diagnostic Imaging Report ---
INDICATION: Coronary artery disease. Portable upright AP view of the chest is obtained with comparison made study of 01/30/2018. FINDINGS: Overall heart size and pulmonary vascularity are within normal limits. There is no pneumothorax or consolidation. Left anterior chest wall dual-chamber cardiac pacemaker is in place. There are occasional calcified granulomas in the pulmonary chidi and both lungs. IMPRESSION: No evidence of acute abnormality or adverse change. Dictated by: Dictated on workstation # [id number]
[2018-06-17] MEDS ORDERED: OMG1KC PO (08:22)
[2018-06-17] MEDS ORDERED: CLOP75TA28 PO (08:23)
[2018-06-17 08:26] LABS: INR 1.1 (0.8-1.4); PROTHROMBIN TIME PATIENT 14.1 SEC (12.2-14.7)
[2018-06-17 08:36] LABS: ALBUMIN 4.2 GM/DL (3.2-4.5); CALCIUM 9.3 MG/DL (8.5-10.1); CREATININE SERUM 1.26 MG/DL (0.60-1.30); POTASSIUM 3.9 MMOL/L (3.6-5.0); TOTAL PROTEIN 6.8 GM/DL (6.4-8.2)
[2018-06-17] MEDS ORDERED: FLU QUADRIvalent (5+ YOA) 2018-2019 (AFLURIA) 0.5 ML IM ONE (08:45)
[2018-06-17] MEDS ORDERED: MIDAZOLAM 5 MG/5 ML (VERSED) VIAL ONE (09:14)
[2018-06-17] MEDS ORDERED: HEParin 1000 UNIT/ML (10ML VIAL) FOR BOLUS ONE (09:14)
[2018-06-17] MEDS ORDERED: fentaNYL INJECTION 100 MCG/2 ML AMP ONE (09:14)
--- NOTE | 2018-06-17 09:19 | Cardiac Procedure Note-CS/ASA ---
Pre-Procedure Note Pre-Op Procedure Note H&P Reviewed The H&P was reviewed, patient examined and no changes noted. Date H&P Reviewed: Jun 17, 2018 Time H&P Reviewed: 09:19 Conscious Sedation Pre-Proced Time Reviewed: :19 ASA Class: 3 Airway Mallampati Classification: ([place] appropriate class) I. II. III, IV Lungs Heart ASA score ASA 1: a normal healthy patient ASA 2: a patient with a mild systemic disease (mid diabetes, controlled hypertension, obesity x ASA 3: a patient with a severe systemic disease that limits activity (angina , COPD, prior Myocardial infarction) ASA 4: a patient with an incapacitating disease that is a constant threat to life (CHF, renal failure) ASA 5: a moribund patient not expected to survive 24 hrs. (ruptured aneurysm) ASA 6: a declared brain patient whose organs are being harvested. For emergent operations, add the letter E after the classification Grade 3 Sedation Plan: Analgesia, Amnesia, Plan communicated to team members, Discussed options with patient/fam, Discussed risks with patient/fam Note The patient is an appropriate candidate to undergo the planned procedure, sedation, and anesthesia. The patient immediately re-assessed prior to indication. VERONICA BUSCH MD Jun 17, 2018 09:19
--- NOTE | 2018-06-17 10:06 | Discharge Inst-Post CATH ---
Discharge Inst-CATH Post Cardiac Cath D/C Inst Follow Up/Plan Appointment with Dr. Sarabia's office in 4 weeks CARDIAC CATH DISCHARGE INSTRUCTIONS *Hold Metformin for 48 hours post heart cath. ACTIVITY * Go Home directly and rest. * Limit activity of the leg (or wrist if it was used) for 7 days including aerobics, swimming, jogging, bicycling, etc. * Restrict stair-climbing for 7 days if possible, if not, climb up with your non -cath leg, then bring together on the same step. * Avoid lifting, pushing, pulling or excessive movement of the affected extremity for 7 days. * Customary sexual activity may be resumed after 2 days-use caution not to use a position that strains or causes pain to the affected extremity. * No driving for 24 hours. * NO SMOKING. * Avoid straining for bowel movements for 7 days. * Gentle walking on level ground is allowed. * Returning to work will depend on the type of procedure and the results. Your doctor will discuss this with you. CALL YOUR DOCTOR FOR ANY OF THE FOLLOWING: *If bleeding from the puncture site occurs- Apply gentle pressure to site with clean cloth and call your doctor or EMS. * If a knot or lump forms under the skin, increases in size, or causes pain. * If bruising appears to be worsening or moving further down your leg instead of disappearing. * Temperature above 101 F. CARE OF YOUR GROIN INCISION; * Bruising or purple discoloration of the skin near the puncture site is common. * You may shower only, no bathtub bathing for 5 days. Be careful to avoid slipping as your leg may feel stiff. * If a closure device was used on your femoral artery, please see the attached guide regarding care of the device and your leg. * REMOVE the dressing from your groin the next day after your procedure in the shower. CARE OF YOUR WRIST INCISION; * Bruising or purple discoloration of the skin near the puncture site is common. * You may shower. * DO NOT submerge wrist. * Remove dressing in 24 hours. VERONICA SARABIA MD Jun 17, 2018 10:06
--- NOTE | 2018-06-17 10:09 | Cardiac Cath Report ---
Cardiac Cath Report Physician (s)/Manager Radio (s) Physician VERONICA BUSCH MD Pre-Procedure Diagnosis Pre-Procedure Diagnosis: Coronary artery disease Post-Procedure Note Procedure Start Date: Jun 17, 2018 Name of Procedure: Left heart catheterization Findings/Procedure Note PROCEDURE NOTE: After explaining the procedure to the patient, all pros and cons were explained , all questions were answered. The patient signed the consent and then he was placed on the cardiac catheterization laboratory. Groin was prepped SL fashion local anesthesia was used. Sheath placed in the right femoral artery. Peter right and left catheter were used to access the coronary system. Pigtail was used to access the left ventricular cavity. Left ventriculogram was not done, pressure was measured At the end of the procedure the sheath was removed. Closure device Was used FINDINGS: Hemodynamics LV 124/15, end-diastolic pressure 15 Aorta 125/64 mean of 86 ANATOMY: Left Main is free of obstructive disease Left Anterior Descending has mild ectasia with slow flow due to small vessel disease Left Circumflex has mild ectasia with slow flow due to small vessel disease Right Coronory Artery has mild ectasia with slow flow due to small vessel disease CONCLUSION: 1. 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 Normal left ventricular end-diastolic pressure DISCUSSION AND RECOMMENDATION: Medical therapy is recommended no intervention is needed Anesthesia Type: Conscious Sedation Estimated blood loss (mL): 20 ml Contrast Amount: 22 ml Total Radiation Dose: 497 mGy Post-Procedure Diagnosis Post-operative diagnosis: Chest pain nonspecific etiology Coronary artery disease Hypertension Hyperlipidemia VERONICA BUSCH MD Jun 17, 2018 10:09
[2018-06-17] MEDS ORDERED: PATIENT MAY USE OWN MEDS, ALL PO SCH (10:15)
== END 2018-06-17 14:30 | disposition home or self-care (01) ==
LOC: CATH 07:34 → SDC 10:21 → CATH 14:30
PROVIDERS: ATTEND Internal Medicine Cardiovascular Disease
DX: R07.9 Chest pain, unspecified (principal); I25.10 Atherosclerotic heart disease of native coronary artery without angina pectoris; I11.0 Hypertensive heart disease with heart failure; E78.2 Mixed hyperlipidemia; I44.7 Left bundle-branch block, unspecified; I50.9 Heart failure, unspecified; I65.29 Occlusion and stenosis of unspecified carotid artery; G47.33 Obstructive sleep apnea (adult) (pediatric); I27.20 Pulmonary hypertension, unspecified; Z79.899 Other long term (current) drug therapy
CPT/HCPCS: 36415; 71045; 80053; 80061; 85027; 85610; 85730; 87081; 93458

== ENCOUNTER → 2018-06-23 | Outpatient (CLI) | payer MEDICARE ==
[~2018-06-23] MED LIST changes: +OMG1KC PO
== END ==
LOC: CARD 13:40
PROVIDERS: ATTEND Physician Assistant
DX: I25.10 Atherosclerotic heart disease of native coronary artery without angina pectoris (principal); I44.2 Atrioventricular block, complete; I50.9 Heart failure, unspecified; I65.29 Occlusion and stenosis of unspecified carotid artery; R07.9 Chest pain, unspecified
CPT/HCPCS: 93306

== ENCOUNTER 2018-08-05 08:47 | Day surgery (SDC) | payer MEDICARE ==
[~2018-08-05] VITALS: Ht 180.3 cm; Wt 97.1 kg
[2018-08-05] VITALS (8 sets, daily range): BP systolic 128–162; BP diastolic 70–104
--- OUTSIDE RECORDS SUMMARY | 2018-08-05 08:54 | XMS REPORT | Continuity of Care Document ---
Author Author [facility] Organization [facility] Address Unknown Phone Unavailable Allergies Active Description Code Type Severity Reaction Onset Reported/Identified Relationship to Patient Clinical Status Yes amoxicillin [id number] Drug Allergy Unknown N/A 01/16/2010 Medications There is no data. 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 02/15/2012 Ot 426.0 ATRIOVENT BLOCK COMPLETE [...] MD Ot 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 06/12/2016 VERONICA BUSCH MD Ot I27.2 OTHER SECONDARY PULMONARY HYPERTENSION 06/12/2016 VERONICA BUSCH MD Ot I44.2 ATRIOVENTRICULAR BLOCK, COMPLETE 06/12/2016 VERONICA BUSCH MD Ot I50.22 CHRONIC SYSTOLIC (CONGESTIVE) HEART FAIL 06/12/2016 VERONICA BUSCH MD Ot R07.89 OTHER CHEST PAIN 06/12/2016 VERONICA BUSCH MD Ot R94.39 ABNORMAL RESULT OF OTHER CARDIOVASCULAR 06/12/2016 VERONICA BUSCH MD Ot Z79.899 OTHER PAINTER DRUM (CURRENT) DRUG THERAPY 06/12/2016 VERONICA BUSCH MD Ot Z95.0 PRESENCE OF CARDIAC PACEMAKER 06/19/2016 VERONICA BUSCH MD Ot E78.5 HYPERLIPIDEMIA, UNSPECIFIED 06/19/2016 VERONICA BUSCH MD Ot I10 ESSENTIAL (PRIMARY) HYPERTENSION 06/19/2016 VERONICA BUSCH MD Ot 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 06/19/2016 VERONICA BUSCH MD Ot I50.9 HEART FAILURE, UNSPECIFIED 06/19/2016 VERONICA BUSCH MD Ot R07.89 OTHER CHEST PAIN 06/26/2016 VERONICA BUSCH MD Ot E78.5 HYPERLIPIDEMIA, UNSPECIFIED 06/26/2016 VERONICA BUSCH MD Ot I10 ESSENTIAL (PRIMARY) HYPERTENSION 06/26/2016 VERONICA BUSCH MD Ot 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 06/26/2016 VERONICA BUSCH MD Ot I50.9 [...] NOS 09/06/2016 Ot 414.01 CORONARY ATHEROSCLEROSIS OF PLATINUM CORON 09/06/2016 Ot 426.2 LEFT BB HEMIBLOCK [...] MD Ot 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 09/06/2016 VERONICA BUSCH MD Ot I50.9 [...] FOR SCREENING FOR MALIGNANT NE 09/06/2016 ARMINDA LAURAENO MD, Ot Z85.038 PERSONAL HISTORY OF MALIGNANT NEOPLASM O 09/06/2016 ARMINDA LAUREANO MD Ot 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 09/12/2016 ARMNIDA LAUREANO MD, Ot D12.0 BENIGN NEOPLASM OF [...] MD Ot 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 12/26/2017 ARMINDA LAUREANO MD Ot K29.70 GASTRITIS, UNSPECIFIED, WITHOUT BLEEDING 12/26/2017 ARMINDA LAUREANO MD Ot 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.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 BURSITIS, LEFT HIP 12/26/2017 ARMINDA LAUREANO MD Ot Z79.02 GROUP HOME (CURRENT) USE OF ANTITHROMBOTI 12/26/2017 ARMINDA LAUREANO MD Ot Z79.82 PAINTER DRUM (CURRENT) USE OF ASPIRIN 12/26/2017 ARMINDA LAUREANO MD Ot Z79.899 OTHER GROUP HOME (CURRENT) DRUG THERAPY 12/26/2017 ARMINDA LAUREANO MD Ot Z95.0 PRESENCE OF CARDIAC PACEMAKER 12/29/2017 ARMINDA LAUREANO MD Ot B37.81 CANDIDAL ESOPHAGITIS 12/29/2017 ARMINDA LAUREANO MD Ot E78.5 HYPERLIPIDEMIA, UNSPECIFIED 12/29/2017 ARMINDA LAUREANO MD Ot I10 ESSENTIAL (PRIMARY) HYPERTENSION 12/29/2017 ARMINDA LAUREANO MD Ot 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 12/29/2017 ARMINDA LAUREANO MD Ot K29.70 GASTRITIS, UNSPECIFIED, WITHOUT BLEEDING 12/29/2017 ARMINDA LAUREANO MD Ot M70.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 BURSITIS, LEFT HIP 12/29/2017 ARMINDA LAUREANO MD Ot Z79.02 GROUP HOME (CURRENT) USE OF ANTITHROMBOTI 12/29/2017 ARMINDA LAUREANO MD Ot Z79.82 GROUP HOME (CURRENT) USE OF ASPIRIN 12/29/2017 ARMINDA LAUREANO MD Ot Z79.899 OTHER PAINTER DRUM (CURRENT) DRUG THERAPY 12/29/2017 ARMINDA LAUREANO MD [...] UNSPECIFIED 01/29/2018 SURINDER HILL MD Ot Z79.82 GROUP HOME (CURRENT) USE OF ASPIRIN 01/29/2018 SURINDER HILL [...] UNSPECIFIED 01/30/2018 CARMEL SANDERS APRN Ot Z79.82 GROUP HOME (CURRENT) USE OF ASPIRIN 01/30/2018 CARMEL SANDERS FIELD AIDE Ot Z85.038 PERSONAL HISTORY OF MALIGNANT NEOPLASM O 01/30/2018 CARMEL SANDERS FIELD AIDE Ot Z87.19 PERSONAL HISTORY OF OTHER DISEASES OF TH 01/30/2018 CARMEL SANDERS FIELD AIDE Ot Z87.891 PERSONAL HISTORY OF NICOTINE DEPENDENCE 01/30/2018 CARMEL SANDERS APRN Ot Z88.0 ALLERGY STATUS TO PENICILLIN 01/30/2018 CARMEL SANDERS FIELD AIDE Ot Z90.49 ACQUIRED ABSENCE OF OTHER SPECIFIED [...] MD Ot 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 01/30/2018 VERONICA BUSCH MD Ot I50.9 [...] UNSPECIFIED 02/01/2018 SURINDER HILL MD Ot Z79.82 PAINTER DRUM (CURRENT) USE OF ASPIRIN 02/01/2018 SURINDER HILL [...] UNSPECIFIED 02/02/2018 CARMEL SANDERS APRN Ot Z79.82 GROUP HOME (CURRENT) USE OF ASPIRIN 02/02/2018 CARMEL SANDERS APRN Ot Z85.038 PERSONAL HISTORY OF MALIGNANT [...] RADHA DE LA TORRE MD Ot Z79.82 PAINTER DRUM (CURRENT) USE OF ASPIRIN 03/28/2018 RADHA DE LA TORRE MD Ot Z85.038 PERSONAL HISTORY OF MALIGNANT NEOPLASM O 03/28/2018 RADHA DE LA TORRE MD, Ot Z87.2 PERSONAL HISTORY OF DISEASES OF THE SKIN 03/28/2018 RADHA DE LA TORRE MD Ot Z87.891 PERSONAL HISTORY OF NICOTINE DEPENDENCE 03/28/2018 RADHA DE LAT ORRE MD Ot Z88.1 ALLERGY STATUS TO OTHER [...] RADHA DE LA TORRE MD Ot Z79.82 PAINTER DRUM (CURRENT) USE OF ASPIRIN 03/31/2018 RADHA DE [...] COMA SCALE, EYES OPEN, SPONTANEOUS, EMR 04/03/2018 [place] MD, RADHA D Ot R40.2252 COMA SCALE, [...] RADHA DE LA TORRE MD Ot Z79.82 PAINTER DRUM (CURRENT) USE OF ASPIRIN 04/03/2018 RADHA DE [...] MD Ot E78.5 HYPERLIPIDEMIA, UNSPECIFIED 06/09/2018 VERONICA BUSCH MD Ot I10 ESSENTIAL (PRIMARY) HYPERTENSION 06/09/2018 VERONICA BUSCH MD Ot 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 06/09/2018 VERONICA BUSCH MD Ot I50.9 HEART FAILURE, UNSPECIFIED 06/09/2018 VERONICA BUSCH MD Ot R07.89 OTHER CHEST PAIN 06/11/2018 IDALMIS PARIKH Ot 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 06/11/2018 IDALMIS PARIKH Ot I44.2 ATRIOVENTRICULAR BLOCK, COMPLETE 06/11/2018 IDALMIS PARIKH Ot I50.9 HEART FAILURE, UNSPECIFIED 06/11/2018 IDALMIS PARIKH Ot R07.89 OTHER CHEST PAIN 06/17/2018 VERONICA BUSCH MD Ot E78.2 MIXED HYPERLIPIDEMIA 06/17/2018 VERONICA BUSCH MD Ot G47.33 OBSTRUCTIVE SLEEP APNEA (ADULT) (PEDIATR 06/17/2018 VERONICA BUSCH MD Ot I11.0 HYPERTENSIVE HEART DISEASE WITH HEART FA 06/17/2018 VERONICA BUSCH MD Ot 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 06/17/2018 VERONICA BUSCH MD Ot I27.20 PULMONARY HYPERTENSION, UNSPECIFIED 06/17/2018 VERONICA BUSCH MD Ot I44.7 LEFT BUNDLE-BRANCH BLOCK, UNSPECIFIED 06/17/2018 VERONICA BUSCH MD Ot I50.9 HEART FAILURE, UNSPECIFIED 06/17/2018 VERONICA BUSCH MD Ot I65.29 OCCLUSION AND STENOSIS OF UNSPECIFIED CA 06/17/2018 VERONICA BUSCH MD Ot R07.9 CHEST PAIN, UNSPECIFIED 06/17/2018 VERONICA BUSCH MD Ot Z79.899 OTHER GROUP HOME (CURRENT) DRUG THERAPY 06/23/2018 VERONICA BUSCH MD Ot E78.2 MIXED HYPERLIPIDEMIA 06/23/2018 VERONICA BUSCH MD Ot G47.33 OBSTRUCTIVE SLEEP APNEA (ADULT) (PEDIATR 06/23/2018 VERONICA BUSCH MD Ot I11.0 HYPERTENSIVE HEART DISEASE WITH HEART FA 06/23/2018 VERONICA BUSCH MD Ot 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 06/23/2018 VERONICA BUSCH MD Ot I27.20 PULMONARY HYPERTENSION, UNSPECIFIED 06/23/2018 VERONICA BUSCH MD Ot I44.7 LEFT BUNDLE-BRANCH BLOCK, UNSPECIFIED 06/23/2018 VERONICA BUSCH MD Ot I50.9 HEART FAILURE, UNSPECIFIED 06/23/2018 VERONICA BUSCH MD Ot I65.29 OCCLUSION AND STENOSIS OF UNSPECIFIED CA 06/23/2018 VERONICA BUSCH MD Ot R07.9 CHEST PAIN, UNSPECIFIED 06/23/2018 VERONICA BUSCH MD Ot Z79.899 OTHER PAINTER DRUM (CURRENT) DRUG THERAPY 06/23/2018 VERONICA BUSCH MD Ot E78.2 MIXED HYPERLIPIDEMIA 06/23/2018 VERONICA BUSCH MD Ot G47.33 OBSTRUCTIVE SLEEP APNEA (ADULT) (PEDIATR 06/23/2018 VERONICA BUSCH MD Ot I11.0 HYPERTENSIVE HEART DISEASE WITH HEART FA 06/23/2018 VERONICA BUSCH MD Ot 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 06/23/2018 VERONICA BUSCH MD Ot I27.20 PULMONARY HYPERTENSION, UNSPECIFIED 06/23/2018 VERONICA BUSCH MD Ot I44.7 LEFT BUNDLE-BRANCH BLOCK, UNSPECIFIED 06/23/2018 VERONICA BUSCH MD Ot I50.9 HEART FAILURE, UNSPECIFIED 06/23/2018 VERONICA BUSCH MD Ot I65.29 OCCLUSION AND STENOSIS OF UNSPECIFIED CA 06/23/2018 VERONICA BUSCH MD Ot R07.9 CHEST PAIN, UNSPECIFIED 06/23/2018 VERONICA BUSCH MD Ot Z79.899 OTHER GROUP HOME (CURRENT) DRUG THERAPY 06/25/2018 IDALMIS PARIKH Ot 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 06/25/2018 IDALMIS PARIKH Ot I44.2 ATRIOVENTRICULAR BLOCK, COMPLETE 06/25/2018 IDALMIS PARIKH Ot I50.9 HEART FAILURE, UNSPECIFIED 06/25/2018 IDALMIS PARIKH Ot I65.29 OCCLUSION AND STENOSIS OF UNSPECIFIED CA 06/25/2018 IDALMIS PARIKH Ot R07.9 CHEST PAIN, UNSPECIFIED 07/08/2018 IDALMIS PARIKH Ot 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 07/08/2018 RODRIGUEZ-ELIZABETH PA, IDALMIS K Ot I44.2 ATRIOVENTRICULAR BLOCK, COMPLETE 07/08/2018 RODRIGUEZELIZABETH LISA, IDALMIS Cagle Ot I50.9 HEART FAILURE, UNSPECIFIED 07/08/2018 MALLY LISA IDALMIS Cagle Ot R07.89 OTHER CHEST PAIN 07/14/2018 MALLY LISA IDALMIS Cagle Ot 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 07/14/2018 RODRIGUEZELIZABETH LISA IDALMIS Cagle Ot I44.2 ATRIOVENTRICULAR BLOCK, COMPLETE 07/14/2018 MALLY LISA, IDALMIS Cagle Ot I50.9 HEART FAILURE, UNSPECIFIED 07/14/2018 MALLY LISA, IDALMIS Cagle Ot I65.29 OCCLUSION AND STENOSIS OF UNSPECIFIED CA 07/14/2018 RODRIGUEZDAYO LISA IDALMIS Cagle Ot R07.9 CHEST PAIN, UNSPECIFIED 07/16/2018 MALLY LISA IDALMIS Cagle Ot 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 07/16/2018 RODRIGUEZDAYO LISA IDALMIS Cagle Ot I44.2 ATRIOVENTRICULAR BLOCK, COMPLETE 07/16/2018 MALLY LISA, IDALMIS Cagle Ot I50.9 HEART FAILURE, UNSPECIFIED 07/16/2018 MALLY LISA, IDALMIS Cagle Ot R07.89 OTHER CHEST PAIN Procedures Code Description Performed By Performed On 37.72 INITIAL INSERT TRANS LEADS INTO ATRIUM 01/16/2010 37.83 INITIAL INSERTION OF DUAL- CHAMBER DEVICE 01/16/2010 89.45 PACEMAKER RATE CHECK 01/17/2010 17.33 LAPAROSCOPIC RIGHT HEMICOLECTOMY 08/13/2011 45.93 [id number] BOWEL NEC 08/13/2011 54.4 DESTRUCT PERITONEAL TISS [...] culture - 06/12/16 07:24 Bacterial urine culture [id number] NRG COLONY COUNT 10,000/ML - 100,000/ML NRG FTX;REPORTABLE SENSITIVITY REPORTED 06/14 09:35 NRG Methicillin resistant Staphylococcus aureus (MRSA) screening culture - 07:24 Methicillin resistant Staphylococcus aureus (MRSA) screening culture NEG [facility] Bacterial susceptibility panel - 06/12/16 07:24 Gentamicin [...] GROWTH Isolated NRG FTX;REPORTABLE PLUS NORMAL PHI NR Fungus culture [id number] [facility] Complete blood count (CBC) with automated white [...] Growth NRG Stool bacteria identification by culture [id number] NRG NOT CULTURED VIBRIOTYERS VIBRIO AND YERSINIA NOT ROUTINELY CULTURED FOR IN THIS LAB NRG NEGATIVE FOR 0157 NEGATIVE FOR E COLI 0157 NRG NEGATIVE FOR CAMPY NEGATIVE FOR CAMPYLOBACTER NRG NEGATIVE FOR SHIGELLA NEGATIVE FOR SHIGELLA NRG FREE TEXT REPORTABLE KDHE REPORT: SALMONELLA ENTERICA NRG Automated blood complete blood count (hemogram) panel - 06/17/18 07:59 Blood leukocytes automated count (number/volume) 8.0 10*3/uL 4.3-11.0 Blood erythrocytes automated count (number/volume) 4.89 10*6/uL 4.35-5.85 Venous blood hemoglobin measurement (mass/volume) 15.8 g/dL 13.3-17.7 Blood hematocrit (volume fraction) 46 % 40-54 Automated erythrocyte mean corpuscular volume 95 [foz_us] 80-99 Automated erythrocyte mean corpuscular hemoglobin (mass per erythrocyte) 32 pg 25-34 Automated erythrocyte mean corpuscular hemoglobin concentration measurement ( mass/volume) 34 g/dL 32-36 Automated erythrocyte distribution width ratio 12.5 % 10.0-14.5 Automated blood platelet count (count/volume) 95 10*3/uL 130-400 Automated blood platelet mean volume measurement 10.4 [foz_us] 7.4-10.4 PT panel in platelet poor plasma by coagulation assay - 06/17/18 07:59 Prothrombin time (PT) in platelet poor plasma by coagulation assay 14.1 s 12.2-14.7 INR in platelet poor plasma or blood by coagulation assay 1.1 0.8-1.4 Activated partial thromboplastin time (aPTT) in platelet poor plasma bycoagulation assay - 06/17/18 07:59 Activated partial thromboplastin time (aPTT) in platelet poor plasma bycoagulation assay 30 s 24-35 Comprehensive metabolic panel - 06/17/18 07:59 Serum or plasma sodium measurement (moles/volume) 138 mmol/L 135-145 Serum or plasma potassium measurement (moles/volume) 3.9 mmol/L 3.6-5.0 Serum or plasma chloride measurement (moles/volume) 106 mmol/L 98-107 Carbon dioxide 23 mmol/L 21-32 Serum or plasma anion gap determination (moles/volume) 9 mmol/L 5-14 Serum or plasma urea nitrogen measurement (mass/volume) 22 mg/dL 7-18 Serum or plasma creatinine measurement (mass/volume) 1.26 mg/dL 0.60-1.30 Serum or plasma urea nitrogen/creatinine mass ratio 17 NRG Serum or plasma creatinine measurement with calculation of estimated glomerular filtration rate 55 NRG Serum or plasma glucose measurement (mass/volume) 118 mg/dL 70-105 Serum or plasma calcium measurement (mass/volume) 9.3 mg/dL 8.5-10.1 Serum or plasma total bilirubin measurement (mass/volume) 1.0 mg/dL 0.1-1.0 Serum or plasma alkaline phosphatase measurement (enzymatic activity/volume) 63 U/L 40-136 Serum or plasma aspartate aminotransferase measurement (enzymatic activity/ volume) 23 U/L 5-34 Serum or plasma alanine aminotransferase measurement (enzymatic activity/volume ) 22 U/L 0-55 Serum or plasma protein measurement (mass/volume) 6.8 g/dL 6.4-8.2 Serum or plasma albumin measurement (mass/volume) 4.2 g/dL 3.2-4.5 CALCIUM CORRECTED 9.1 mg/dL 8.5-10.1 Lipid 1996 panel - 06/17/18 07:59 Serum or plasma triglyceride measurement (mass/volume) 89 mg/dL <150 Serum or plasma cholesterol measurement (mass/volume) 131 mg/dL < 200 Serum or plasma cholesterol in HDL measurement (mass/volume) 36 mg/ dL 40-60 Cholesterol in LDL [mass/volume] in serum or plasma by direct assay 79 mg/dL 1-129 Serum or plasma cholesterol in VLDL measurement (mass/volume) 18 mg/ dL 5-40 Methicillin resistant Staphylococcus aureus (MRSA) screening culture - 07:59 Methicillin resistant Staphylococcus aureus (MRSA) screening culture NEG NRG Encounters ACCT No. Visit Date/Time Discharge Status Pt. Type Provider Facility Loc./Unit Complaint [id number] 06/23/2018 13:40:00 06/23/2018 23:59:59 CLS Outpatient IDALMIS PARIKH [facility] CARD CAD,CHB,CHF, CAROTID ARTERY STENOSIS,CHEST PAIN SYN [id number] 06/17/2018 07:34:00 06/17/2018 14:30:00 DIS Outpatient VERONICA BUSCH MD [facility] CATH CP, SOB, CAD, HTN, HLP [id number] 06/10/2018 12:40:00 06/10/2018 23:59:59 CLS Outpatient IDALMIS PARIKH [facility] CARD CAD,CHB,CHF, CAROTID ARTERY STENOSIS,CHEST PAIN SYN [id number] 03/28/2018 08:53:00 03/28/2018 10:08:00 DIS Emergency RADHA DE LA TORRE MD [facility] ER FELL ON SIDEWALK/ ON STREET IN FRONT OF HOUSE [id number] 01/30/2018 18:36:00 01/30/2018 23:01:00 DIS Emergency CARMEL SANDERS APRN [facility] ER DIARRHEA [id number] 01/29/2018 17:04:00 01/29/2018 22:12:00 DIS Emergency SURINDER HILL MD [facility] ER DIARRHEA [id number] 12/26/2017 08:19:00 12/26/2017 10:55:00 DIS Outpatient ARMINDA LAUREANO MD [facility] ENDO 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 [id number] 12/22/2017 06:17:00 12/22/2017 15:08:00 DIS Outpatient ARMINDA LAUREANO MD [facility] PREOP EGD [id number] 09/06/2016 08:26:00 09/06/2016 11:35:00 DIS Out[facility] [id number] 09/04/2016 05:42:00 09/04/2016 14:33:00 DIS Outpatient ARMINDA LAUREANO MD [facility] PREOP HISTORY COLON CANCER [id number] 06/12/2016 06:56:00 06/12/2016 14:00:00 DIS Outpatient VERONICA BUSCH MD [facility] CATH CP,SOB,CAD,HTN [id number] 05/29/2016 07:35:00 05/29/2016 23:59:59 CLS Outpatient VERONICA BUSCH MD [facility] CARD CP,CAD,CHF [id number] 06/04/2015 06:30:00 06/04/2015 08:58:00 DIS Emergency SLADE NORTON, ANEUDY Cagle [facility] ER CONGESTION,CONSTIPATION [id number] 05/29/2015 09:45:00 05/30/2015 13:58:00 DIS Outpatient DANICA HANSON MD [facility] SDC STENOSIS [id number] 05/17/2015 07:46:00 05/17/2015 23:59:59 CLS Outpatient DANICA HANSON MD [facility] PREOP STENOSIS [id number] 01/12/2015 08:09:00 01/12/2015 13:00:00 DIS Outpatient DANICA HANSON MD [facility] RAD STENOSIS [id number] 11/16/2014 07:45:00 11/16/2014 23:59:59 CLS Outpatient VERONICA BUSCH MD [facility] CARD CAD,CHF,HLP [id number] 11/01/2014 13:44:00 11/01/2014 23:59:59 CLS Outpatient VERONICA BUSCH MD [facility] CARD CAD,CHF,HTN,HLP [id number] 04/05/2014 07:25:00 04/05/2014 09:55:00 DIS Outpatient ARMINDA LAUREANO MD [facility] FOLLOW UP TO COLON CANCER [id number] 03/30/2014 07:27:00 03/30/2014 23:59:59 CLS Outpatient ARMINDA LAUREANO MD [facility] PREOP FOLLOW UP TO COLON CANCER [id number] 11/17/2013 14:46:00 11/17/2013 23:59:59 CLS Outpatient ARMINDA LAUREANO MD [facility] LAB N[employer] [id number] 09/15/2013 07:31:00 09/15/2013 23:59:59 CLS Outpatient VERONICA BUSCH MD [facility] RAD CAD,CHB,CAROTID ARTERY STENOSIS,HTN [id number] 07/20/2013 07:27:00 07/20/2013 10:47:00 DIS Outpatient ARMINDA LAUREANO MD [facility] EROSIVE ESOPHAGAOUS [id number] 07/15/2013 07:29:00 07/15/2013 23:59:59 CLS Outpatient ARMINDA LAUREANO MD [facility] PREOP EROSIVE ESAPHOGEOUS [id number] 06/06/2013 13:12:00 06/06/2013 23:59:59 CLS Outpatient [id number] 08/05/2018 11:00:00 PEN Preadmit VERONICA BUSCH MD [facility] CATH JAZMIN,CAD,HTN [id number] 11/01/2014 13:59:00 Document Registration [id number] 11/01/2014 13:59:00 Document Registration [id number] 01/20/2013 13:42:00 Document Registration [id number] 07/27/2012 09:19:00 Document Registration [id number] 07/24/2012 08:09:00 Document Registration [id number] 02/15/2012 06:25:00 Document Registration [id number] 02/14/2012 09:26:00 Document Registration [id number] 02/11/2012 11:04:00 Document Registration [id number] 02/10/2012 08:45:00 Document Registration [id number] 09/16/2011 13:25:00 Document Registration [id number] 08/26/2011 17:55:00 Document Registration [id number] 08/26/2011 16:05:00 Document Registration [id number] 08/13/2011 05:41:00 Document Registration [id number] 08/08/2011 13:04:00 Document Registration [id number] 07/19/2011 06:57:00 Document Registration [id number] 03/18/2011 07:56:00 Document Registration [id number] 03/11/2011 08:15:00 Document Registration [id number] 02/08/2011 00:00:00 Document Registration [id number] 11/09/2010 10:51:00 Document Registration [id number] 09/20/2010 08:23:00 Document Registration [id number] 01/16/2010 13:09:00 Document Registration [id number] 10/31/2009 09:16:00 Document Registration
[2018-08-05] MEDS ORDERED: LIDOCAINE 1% INJ 20 ML 20 ML VIAL ONE ×2 (08:58→12:33)
[2018-08-05] MEDS ORDERED: NS IV 1000 ML 1,000 ML ONE (08:58)
[2018-08-05] MEDS ORDERED: HEParin (CATH LAB) 0 ML IV ONE (08:58)
[2018-08-05] MEDS ORDERED: NS IV 1000 ML 1,000 ML IV SCH ×2 (09:01→13:20)
[2018-08-05] MEDS ORDERED: ceFAZolin 1,000 MG/10 ML (ANCEF) VIAL IV ONE (09:15)
[2018-08-05] MEDS ORDERED: BACITRACIN INJECTION 50,000 UNIT, SODIUM CHLORIDE 0.9% IRRIGATIO 500 ML IR ONE ×2 (09:15)
[2018-08-05 09:24] LABS: HEMOGLOBIN 16.7 G/DL (13.3-17.7); MEAN PLATELET VOLUME 10.8 FL (7.4-10.4); RED BLOOD COUNT 5.25 10^6/uL (4.35-5.85); RED CELL DISTRIBUTION WIDTH 13.1 % (10.0-14.5); WHITE BLOOD COUNT 6.5 10^3/uL (4.3-11.0)
[2018-08-05] MEDS ORDERED: NS (IVPB) 250 ML ONE (09:35)
[2018-08-05] MEDS ORDERED: ceFAZolin 1,000 MG/10 ML (ANCEF) VIAL ONE (09:35)
[2018-08-05] MEDS ORDERED: VANCOMYCIN 1000 MG/VIAL ONE (09:46)
--- NOTE | 2018-08-05 09:50 | Diagnostic Imaging Report ---
INDICATION: Tobaccoism. EXAMINATION: Portable chest at 9:34 AM. FINDINGS: There is a dual-chamber pacemaker. The heart size and pulmonary vascularity are normal. The lungs are clear. There are no effusions or pneumothoraces. IMPRESSION: Negative chest. Dictated by: Dictated on workstation # [id number]
[2018-08-05 09:56] LABS: ALBUMIN 4.4 GM/DL (3.2-4.5); BILIRUBIN,TOTAL 1.3 MG/DL (0.1-1.0); CALCIUM 9.7 MG/DL (8.5-10.1); CREATININE SERUM 1.26 MG/DL (0.60-1.30); POTASSIUM 4.3 MMOL/L (3.6-5.0)
[2018-08-05] MEDS ORDERED: MIDAZOLAM 5 MG/5 ML (VERSED) VIAL ONE ×2 (12:29→12:55)
[2018-08-05] MEDS ORDERED: fentaNYL INJECTION 100 MCG/2 ML AMP ONE ×2 (12:29→12:55)
[2018-08-05] MEDS ORDERED: HEParin (CATH LAB) 1,000 ML IV ONE (12:33)
--- NOTE | 2018-08-05 13:03 | Cardiac Procedure Note-CS/ASA ---
Pre-Procedure Note Pre-Op Procedure Note H&P Reviewed The H&P was reviewed, patient examined and no changes noted. Date H&P Reviewed: Aug 05, 2018 Time H&P Reviewed: 13:03 Conscious Sedation Pre-Proced Time 13:03 ASA Score 3 For ASA 3 and 4: Consider anesthesia and medical clearance. Also, for patients with a history of failed moderate sedation consider anesthesia. Airway Lungs Heart ASA score ASA 1: a normal healthy patient ASA 2: a patient with a mild systemic disease (mid diabetes, controlled hypertension, obesity x ASA 3: a patient with a severe systemic disease that limits activity (angina , COPD, prior Myocardial infarction) ASA 4: a patient with an incapacitating disease that is a constant threat to life (CHF, renal failure) ASA 5: a moribund patient not expected to survive 24 hrs. (ruptured aneurysm) ASA 6: a declared brain patient whose organs are being harvested. For emergent operations, add the letter E after the classification Mallampati Classification Grade 3 Sedation Plan Analgesia, Amnesia, Plan communicated to team members, Discussed options with patient/fam, Discussed risks with patient/fam The patient is an appropriate candidate to undergo the planned procedure, sedation, and anesthesia. The patient immediately re-assessed prior to indication. VERONICA BUSCH MD Aug 05, 2018 13:03
[2018-08-05 13:12] LABS: INR 1.2 (0.8-1.4); PROTHROMBIN TIME PATIENT 14.7 SEC (12.2-14.7)
[2018-08-05] MEDS ORDERED: NEO/POLY/BAC (NEOSPORIN) OINT 15 GM TUBE ONE (13:18)
--- NOTE | 2018-08-05 13:27 | ICD Generator Change ---
ICD Generator Change Physician (s)/Supervisor Braiding (s) Physician VERONICA BUSCH MD Pre-Procedure Diagnosis Pre-Procedure Diagnosis: Sick sinus syndrome Post-Procedure Note Procedure Start Date: Aug 05, 2018 Name of Procedure: Dual chamber pacer generator replacement Findings/Procedure Note After explaining the procedure to the patient, all pros and cons were explained , patient was placed on the cart catheterization laboratory, using aseptic technique, local anesthesia applied, conscious sedation achieved using Versed and fentanyl. Skin incision was made and then the skin pocket was made, the on pacemaker generator device was removed from the pocket and new Medtronic pacemaker generator device was placed, I used MRI safe generator using Medtronic MATILDE DR MRI #[id number], attached to the lead, good sensing and capture activity, the new device was placed in the pocket and the pocket was closed. No complication was noted. Device is Medtronic MATILDE DR MRI #[id number] Atrial lead Medtronic [id number] Ventricular lead Medtronic [id number] Conclusion Successful dual-chamber pacemaker generator replacement using Medtronic MRI safe device, the patient has MRI safe leads. Anesthesia Type: Conscious Sedation Estimated blood loss (mL): 10 ML Contrast Amount: 0 ML Post-Procedure Diagnosis Post-operative diagnosis: Sick sinus syndrome Permanent pacemaker Hypertension Hyperlipidemia VERONICA BUSCH MD Aug 05, 2018 13:27
[2018-08-05] MEDS ORDERED: PATIENT MAY USE OWN MEDS, ALL PO SCH (13:30)
--- NOTE | 2018-08-05 13:30 | Cardiac Procedure Note ---
Cardiology Procedures Date of Procedure 08/05/18 Physician VERONICA BUSCH MD Pre-Procedure Diagnosis Pre-Procedure Diagnosis: Sick sinus syndrome Post-Procedure Note Procedure Start Date: Aug 05, 2018 Name of Procedure: Dual chamber pacer generator replacement Findings/Procedure Note After explaining the procedure to the patient, all pros and cons were explained , patient was placed on the cart catheterization laboratory, using aseptic technique, local anesthesia applied, conscious sedation achieved using Versed and fentanyl. Skin incision was made and then the skin pocket was made, the on pacemaker generator device was removed from the pocket and new Medtronic pacemaker generator device was placed, I used MRI safe generator using Medtronic MATILDEGABRIELA MCKEON MRI #[id number], attached to the lead, good sensing and capture activity, the new device was placed in the pocket and the pocket was closed. No complication was noted. Device is Medtronic MATILDE MRI #[id number] Atrial lead Medtronic [id number] Ventricular lead Medtronic [id number] Conclusion Successful dual-chamber pacemaker generator replacement using Medtronic MRI safe device, the patient has MRI safe leads. Anesthesia Type: Conscious Sedation Estimated blood loss (mL): 10 ML Contrast Amount: 0 ML Post-Procedure Diagnosis Post-operative diagnosis: Sick sinus syndrome Permanent pacemaker Hypertension Hyperlipidemia VERONICA BUSCH MD, BASHAR J MD Aug 05, 2018 13:30
[2018-08-05] MEDS ORDERED: LEVOFLOXACIN 750 MG TAB (LEVAQUIN) PO ONE (13:45)
[2018-08-05] MEDS ORDERED: LEVO750T9 PO (14:31)
== END 2018-08-05 16:13 | disposition home or self-care (01) ==
LOC: CATH 08:47 → SDC 13:42 → CATH 16:13
PROVIDERS: ATTEND Internal Medicine Cardiovascular Disease
DX: I49.5 Sick sinus syndrome (principal); I25.10 Atherosclerotic heart disease of native coronary artery without angina pectoris; I11.0 Hypertensive heart disease with heart failure; I44.2 Atrioventricular block, complete; I50.9 Heart failure, unspecified; E78.2 Mixed hyperlipidemia; G47.33 Obstructive sleep apnea (adult) (pediatric); Z79.899 Other long term (current) drug therapy; Z87.891 Personal history of nicotine dependence; I27.20 Pulmonary hypertension, unspecified; I65.29 Occlusion and stenosis of unspecified carotid artery
CPT/HCPCS: 33228; 36415; 71045; 80053; 85027; 85610; 85730; 87081; 93005

== ENCOUNTER → 2018-12-24 | Outpatient (CLI) | payer MEDICARE ==
[~2018-12-24] MED LIST changes: +LEVO750T9 PO
== END | disposition home or self-care (01) ==
LOC: SLEEP 12:46
PROVIDERS: ATTEND Internal Medicine Cardiovascular Disease
DX: G47.33 Obstructive sleep apnea (adult) (pediatric) (principal); G47.10 Hypersomnia, unspecified; I10 Essential (primary) hypertension; I49.9 Cardiac arrhythmia, unspecified

== ENCOUNTER → 2018-12-30 | Outpatient (CLI) | payer MEDICARE | LOC: RAD 12:26 | PROVIDERS: ATTEND Nurse Practitioner Family | DX: M25.461 Effusion, right knee (principal); Z53.8 Procedure and treatment not carried out for other reasons ==

== ENCOUNTER 2019-01-07 20:22 | Outpatient (CLI) | payer MEDICARE | END 2019-01-08 06:15 | disposition home or self-care (01) | LOC: SLEEP 20:22 | PROVIDERS: ATTEND Nurse Practitioner | DX: G47.33 Obstructive sleep apnea (adult) (pediatric) (principal) | CPT/HCPCS: 95811 ==

== ENCOUNTER → 2019-01-12 | Outpatient (CLI) | payer MEDICARE ==
--- NOTE | 2019-01-12 12:00 | Diagnostic Imaging Report ---
CLINICAL INDICATION: Pre-MRI chest x-ray screening for pacemaker protocol. EXAM: Chest x-ray PA view only. COMPARISONS: Chest x-ray dated 08/05/2018. FINDINGS: Lungs/pleura: There is slight increase right basilar atelectasis. Suspected small calcified granuloma in both lung bases. Lungs are clear. There is no pneumothorax. There is no pleural effusion. Mediastinum: Unremarkable. Pulmonary vasculature: Unremarkable. Heart: Cardiac silhouette is within normal limits. Stable cardiac pacemaker seen overlying left chest with 2 leads projecting over the heart. Again seen loop recorder overlying the left chest region. Bones/extrathoracic soft tissue: There are degenerative spurs involving the spine. IMPRESSION: Slight increase right basilar atelectasis. Otherwise, stable chest x-ray exam with no interval radiographic evidence of acute cardiopulmonary process. Dictated by: Dictated on workstation # [id number]
--- NOTE | 2019-01-12 14:12 | Diagnostic Imaging Report ---
PROCEDURE: MRI right joint lower extremity without contrast. TECHNIQUE: Multiplanar, multisequence non contrast-enhanced MRI of the right lower extremity was accomplished. INDICATION: Right-sided knee pain. COMPARISON: No prior studies are available for comparison. FINDINGS: There is a large joint effusion. Minimal marrow edema in the lateral tibial plateau is seen. No discrete fracture is identified. There appears to be a subchondral cyst involving the lateral femoral condyle. The ACL and PCL are intact. The medial and lateral collateral ligament complexes appear to be intact. Abnormal appearance of both the medial and lateral menisci are noted. There is abnormal linear signal extending through the posterior horn of the medial meniscus. Obliquely oriented signal does appear to surface inferiorly and is suggestive of a tear. No displaced fragment is seen. Significant increased signal throughout the anterior horn of the lateral meniscus is noted. There is increased signal through the body of the lateral meniscus as well and features are suspicious for a horizontally oriented tear. There is some obliquely oriented signal through the posterior horn of the lateral meniscus which appears to surface inferiorly. No displaced fragment is identified. The extensor mechanism is unremarkable. There are mild degenerative changes with thinning of the articular cartilage of all three compartments. IMPRESSION: 1. Moderate-sized joint effusion. There are features suggestive of tears involving both the medial and lateral menisci. No definite ligamentous tear is identified. Dictated by: Dictated on workstation # [id number]
== END ==
LOC: RAD 09:26
PROVIDERS: ATTEND Nurse Practitioner Family
DX: Z01.818 Encounter for other preprocedural examination (principal); M25.461 Effusion, right knee; Z95.0 Presence of cardiac pacemaker
CPT/HCPCS: 71045; 73721

== ENCOUNTER 2020-01-27 14:35 | Emergency (ER) | payer MEDICARE ==
[~2020-01-27] VITALS: Ht 182 cm; Wt 96.0 kg
[~2020-01-27 14:35] MED LIST changes: +ALFU10TA12 PO; -METO-395 PO; +MTP100TCR PO; +SIMV20TA26 PO; -SIMV20TA3 PO
[2020-01-27] MEDS ORDERED: ASPIRIN 81 MG CHEW (CHILDREN'S ASA) PO ONE (14:45)
--- NOTE | 2020-01-27 14:48 | ED Chest Pain ---
General Stated Complaint: CP Source: patient Exam Limitations: no limitations History of Present Illness Date Seen by Provider: Jan 27, 2020 Time Seen by Provider: 14:47 Initial Comments To ER with reports of chest pain. This began earlier this morning while he was outside and washing his truck. The pain presented twice lasting only a few seconds each time. He also had some nausea and dizziness. He states he just generally doesn't feel right. Currently no dizziness no nausea and no chest pain. He follows with Dr. Kirkpatrick. He is on Plavix and aspirin. He had both of these this morning. 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 Associated Symptoms: nausea/vomiting, shortness of breath (chronic and unchanged) Allergies and Home Medications Allergies Coded Allergies: amoxicillin (Verified Allergy, Unknown, 01/16/10) Home Medications Alfuzosin HCl 10 Mg Tab.er.24h, 10 MG PO DAILY@1800, (Reported) Aspirin 81 Mg Tablet.dr, 81 MG PO DAILY, (Reported) Cholecalciferol (Vitamin D3) 1,000 Unit Tablet, 1,000 UNIT PO DAILY, (Reported) Clopidogrel Bisulfate 75 Mg Tablet, 75 MG PO DAILY, (Reported) Enalapril Maleate 10 Mg Tablet, 10 MG PO BID, (Reported) Ferrous Sulfate 325 Mg Tablet, 325 MG PO DAILY, (Reported) Folic Acid 1 Mg Tablet, 1 MG PO DAILY@1200, (Reported) Gabapentin 300 Mg Capsule, 300 MG PO HS, (Reported) Levofloxacin 750 Mg Tablet, 750 MG PO DAILY Prescribed by: VERONICA SARABIA on 08/05/18 1431 Metoprolol Succinate 100 Mg Tab.er.24h, 100 MG PO BID, (Reported) [place] 3 Polyunsat Fatty Acids 1,000 Mg Cap, 1,000 MG PO TID, (Reported) Pantoprazole Sodium 40 Mg Tablet.dr, 40 MG PO DAILY, (Reported) Simvastatin 20 Mg Tablet, 20 MG PO DAILY @ 1200, (Reported) Zinc Amino Acid Chelate 50 Mg Tablet, 50 MG PO WITH EVENING MEAL, (Reported) Patient Home Medication List Home Medication List Reviewed: Yes Review of Systems Review of Systems Constitutional: see HPI EENTM: No Symptoms Reported Respiratory: No Symptoms Reported Cardiovascular: See HPI Gastrointestinal: See HPI Genitourinary: No Symptoms Reported Musculoskeletal: no symptoms reported Skin: no symptoms reported Psychiatric/Neurological: No Symptoms Reported Endocrine: No Symptoms Reported Hematologic/Lymphatic: No Symptoms Reported Past Cfokatm-Umqcnb-Xhidby Hx Patient Social History Type Used: Cigars Former Smoker, Quit: Jun 12, 1967 Recent Foreign Travel: No Contact w/Someone Who Travel: No Recent Hopitalizations: No Immunizations Up To Date Tetanus Booster (TDap): Unknown PED Vaccines UTD: Yes Date of Pneumonia Vaccine: Jun 17, 2015 Date of Influenza Vaccine: Jul 14, 2017 Seasonal Allergies Seasonal Allergies: Yes Past Medical History Surgeries: Yes (INGUINAL HERNIA X2, COLON RESECTION, BACK) Orthopedic Respiratory: No Currently Using CPAP: No Currently Using BIPAP: No Cardiac: Yes (HX SMALL HEART ATTACK, 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, pacemaker) Hypertension Neurological: No Reproductive Disorders: No Sexually Transmitted Disease: No HIV/AIDS: No Gastrointestinal: Yes (COLON CANCER, HX INTESTIONAL ABCESS) Gastroesophageal Reflux Musculoskeletal: Yes (LUMBAR STENOSIS) Chronic Back Pain Endocrine: No Loss of Vision: Bilateral Hearing Impairment: Denies Cancer: Yes Colon What Type of Treatment Did You: Surgical Intervention Psychosocial: No Integumentary: No Blood Disorders: No Adverse Reaction/Blood Tranf: No Family Medical History No Pertinent Family Hx Physical Exam Vital Signs Vital Signs - First Documented Capillary Refill : Height, Weight, BMI Height: 5'11.00" Weight: 214lbs. 0.0oz. [id number]; 29.9 BMI Method:Stated General Appearance: No Apparent Distress, WD/WN Respiratory: Normal Breath Sounds, No Accessory Muscle Use, No Respiratory Distress Cardiovascular: Regular Rate, Rhythm Gastrointestinal: Non Tender, Soft Extremity: Normal Inspection Neurologic/Psychiatric: Alert, Oriented x3 Skin: Normal Color, Warm/Dry Progress/Results/Core Measures Results/Orders Lab Results Laboratory Tests Test 01/27/20 14:58 01/27/20 16:50 Range/Units White Blood Count 6.5 4.3-11.0 10^3/uL Red Blood Count 4.98 4.35-5.85 10^6/uL Hemoglobin 15.7 13.3-17.7 G/DL Hematocrit 47 40-54 % Mean Corpuscular Volume 95 80-99 FL Mean Corpuscular Hemoglobin 32 25-34 PG Mean Corpuscular Hemoglobin Concent 33 32-36 G/DL Red Cell Distribution Width 12.5 10.0-14.5 % Platelet Count 88 L 130-400 10^3/uL Mean Platelet Volume 10.3 7.4-10.4 FL Neutrophils (%) (Auto) 47 42-75 % Lymphocytes (%) (Auto) 41 12-44 % Monocytes (%) (Auto) 9 0-12 % Eosinophils (%) (Auto) 3 0-10 % Basophils (%) (Auto) 0 0-10 % Neutrophils # (Auto) 3.0 1.8-7.8 X 10^3 Lymphocytes # (Auto) 2.7 1.0-4.0 X 10^3 Monocytes # (Auto) 0.6 0.0-1.0 X 10^3 Eosinophils # (Auto) 0.2 0.0-0.3 10^3/uL Basophils # (Auto) 0.0 0.0-0.1 10^3/uL Prothrombin Time 14.4 12.2-14.7 SEC INR Comment 1.1 0.8-1.4 Activated Partial Thromboplast Time 33 24-35 SEC Sodium Level 139 135-145 MMOL/L Potassium Level 4.0 3.6-5.0 MMOL/L Chloride Level 106 98-107 MMOL/L Carbon Dioxide Level 24 21-32 MMOL/L Anion Gap 9 5-14 MMOL/L Blood Urea Nitrogen 16 7-18 MG/DL Creatinine 1.11 0.60-1.30 MG/DL Estimat Glomerular Filtration Rate > 60 BUN/Creatinine Ratio 14 Glucose Level 150 H 70-105 MG/DL Calcium Level 9.0 8.5-10.1 MG/DL Corrected Calcium 9.0 8.5-10.1 MG/DL Magnesium Level 2.1 1.6-2.4 MG/DL Total Bilirubin 0.9 0.1-1.0 MG/DL Aspartate Amino Transf (AST/SGOT) 28 5-34 U/L Alanine Aminotransferase (ALT/SGPT) 28 0-55 U/L Alkaline Phosphatase 73 40-136 U/L Myoglobin 48.8 10.0-92.0 NG/ML Troponin I < 0.028 < 0.028 <0.028 NG/ML B-Type Natriuretic Peptide 97.3 <100.0 PG/ML Total Protein 6.4 6.4-8.2 GM/DL Albumin 4.0 3.2-4.5 GM/DL Lipase 22 8-78 U/L My Orders Orders - CARMEL SANDERS Tegan [employer] Cbc With Automated Diff (01/27/20 14:40) Magnesium (01/27/20 14:40) Chest 1 View, Ap/Pa Only (01/27/20 14:40) Ekg Tracing (01/27/20 14:40) Comprehensive Metabolic Panel (01/27/20 14:40) Myoglobin Serum (01/27/20 14:40) Protime With Inr (01/27/20 14:40) Partial Thromboplastin Time (01/27/20 14:40) O2 (01/27/20 14:40) Monitor-Rhythm Ecg Trace Only (01/27/20 14:40) Ed Iv/Invasive Line Start (01/27/20 14:40) Lipase (01/27/20 14:40) BNP (01/27/20 14:40) Troponin I (01/27/20 14:40) Aspirin Chewable Tablet (Baby Aspirin Ch (01/27/20 14:45) Troponin I (01/27/20 17:00) Metoprolol Tartrate Injection (Lopressor (01/27/20 17:15) Medications Given in ED Current Medications Medications Dose Ordered Sig/Carli Route Start Time Stop Time Status Last Admin Dose Admin Aspirin 324 mg ONCE ONCE PO 01/27/20 14:45 01/27/20 14:46 DC 01/27/20 15:02 324 MG Metoprolol Tartrate 5 mg ONCE ONCE IV 01/27/20 17:15 01/27/20 17:16 DC 01/27/20 17:20 5 MG Vital Signs/I&O 01/27/20 01/27/20 01/27/20 01/27/20 14:46 14:46 14:46 17:45 Temp 36.6 36.6 Pulse 64 60 Resp 16 18 B/P (MAP) 177/85 (115) 165/93 Pulse Ox 100 97 99 O2 Delivery Room Air Room Air Room Air Room Air Departure Communication (Admissions) 2985-discussed with Dr. Sarabia, would like to start the gentleman on a beta joycelyn if he is not already on 1. If he is already on 1 the dosage can be the same. However a dose of Lopressor IV here would be a good idea. He is good with discharge if repeat troponin comes back negative. Impression Primary Impression: Chest pain Disposition: HOME, SELF-CARE Condition: Stable Departure-Patient Inst. Decision time for Depature: 16:56 Referrals: ARMINDA LAUREANO MD (PCP/Family) Primary Care Physician Patient Instructions: Chest Pain Add. Discharge Instructions: And follow-up with Dr. Sarabia. Return to ER for any concerns. CARMEL SANDERS [employer] Jan 27, 2020 14:48
[2020-01-27 15:05] LABS: BASOPHILS % (AUTO) 0 % (0-10); EOSINOPHILS # (AUTO) 0.2 10^3/uL (0.0-0.3); EOSINOPHILS % (AUTO) 3 % (0-10); HEMATOCRIT 47 % (40-54); HEMOGLOBIN 15.7 G/DL (13.3-17.7); LYMPHOCYTES # (AUTO) 2.7 X 10^3 (1.0-4.0); LYMPHOCYTES % (AUTO) 41 % (12-44); MEAN CORPUSCULAR HEMOGLOBIN 32 PG (25-34); MEAN CORPUSCULAR HGB CONC 33 G/DL (32-36); MEAN CORPUSCULAR VOLUME 95 FL (80-99); MEAN PLATELET VOLUME 10.3 FL (7.4-10.4); MONOCYTES # (AUTO) 0.6 X 10^3 (0.0-1.0); MONOCYTES % (AUTO) 9 % (0-12); NEUTROPHILS % (AUTO) 47 % (42-75); PLATELET COUNT 88 10^3/uL (130-400); RED CELL DISTRIBUTION WIDTH 12.5 % (10.0-14.5); WHITE BLOOD COUNT 6.5 10^3/uL (4.3-11.0)
[2020-01-27 15:24] LABS: INR 1.1 (0.8-1.4); PROTHROMBIN TIME PATIENT 14.4 SEC (12.2-14.7)
[2020-01-27 15:27] LABS: ALANINE AMINOTRANSFERASE 28 U/L (0-55); ALKALINE PHOSPHATASE 73 U/L (40-136); BILIRUBIN,TOTAL 0.9 MG/DL (0.1-1.0); BUN/CREATININE RATIO 14; CARBON DIOXIDE 24 MMOL/L (21-32); CHLORIDE 106 MMOL/L (98-107); CREATININE SERUM 1.11 MG/DL (0.60-1.30); GFR ESTIMATED > 60; GLUCOSE 150 MG/DL (70-105); LIPASE 22 U/L (8-78); MAGNESIUM 2.1 MG/DL (1.6-2.4); SODIUM 139 MMOL/L (135-145); TOTAL PROTEIN 6.4 GM/DL (6.4-8.2)
--- NOTE | 2020-01-27 15:29 | Diagnostic Imaging Report ---
INDICATION: Chest pain. COMPARISON: 01/12/2019. FINDINGS: Portable chest. The lungs are well aerated. There has been clearing of infiltrates since the previous exam. There are no infiltrates or masses now present. There is mild cardiomegaly. No evidence of pulmonary edema. Pacemaker on the left unchanged. No pneumothorax or pleural effusion. IMPRESSION: 1. Cardiomegaly. No evidence of congestive failure. 2. Clearing of right lower lobe infiltrate. Dictated by: Dictated on workstation # [id number]
[2020-01-27] MEDS ORDERED: meTOprolol 5 MG/5 ML (LOPRESSOR) VIAL IV ONE (17:15)
[2020-01-27 17:45] VITALS: BP 165/93
== END 2020-01-27 17:45 | disposition home or self-care (01) ==
LOC: EDUNIT# 14:35 → ER 14:36
DX: R07.9 Chest pain, unspecified (principal); I10 Essential (primary) hypertension; I25.2 Old myocardial infarction; K21.9 Gastro-esophageal reflux disease without esophagitis; M48.07 Spinal stenosis, lumbosacral region; G89.29 Other chronic pain; Z85.038 Personal history of other malignant neoplasm of large intestine; Z95.0 Presence of cardiac pacemaker; Z79.82 Long term (current) use of aspirin; Z79.899 Other long term (current) drug therapy; Z79.02 Long term (current) use of antithrombotics/antiplatelets
CPT/HCPCS: 36415; 71045; 80053; 83690; 83735; 83874; 83880; 84484; 85025; 85610; 85730; 93041

== ENCOUNTER → 2020-06-27 | Outpatient (CLI) | payer MEDICARE ==
[~2020-06-27] MED LIST changes: -ENAL10TA PO; +ENAL10TA16 PO; +MULT-567 PO; -MULT1TAB69 PO; -OXYC-465 PO; +OXYC-556 PO; -PANT40TA3 PO; +PANT40TA52 PO
== END ==
LOC: CARD 12:00
PROVIDERS: ATTEND Physician Assistant
DX: I11.9 Hypertensive heart disease without heart failure (principal); I65.23 Occlusion and stenosis of bilateral carotid arteries; I25.10 Atherosclerotic heart disease of native coronary artery without angina pectoris; I44.7 Left bundle-branch block, unspecified; E78.2 Mixed hyperlipidemia
CPT/HCPCS: 93306

== ENCOUNTER → 2020-10-16 | Outpatient (CLI) | payer MEDICARE ==
[~2020-10-16] VITALS: Ht 180 cm; Wt 97.0 kg
[~2020-10-16] MED LIST changes: +ASPI-1238 PO; +BAMLANIVIMAB 700 MG in NS 200 ML IV ONE; +CHOL100048 PO; +EPINEPHrine INJECTION 1 MG/ML AMP IM PRN; -FOLI1TAB24 PO; +FOLI1TAB33 PO; +GABA300C PO; +diphenhydrAMINE 50 MG/ML INJ (BENADRYL) IV PRN
[2020-10-16 12:51] VITALS: BP 160/68
[2020-10-16 14:59] VITALS: BP 155/71
== END ==
LOC: INFUSION 12:38
PROVIDERS: ATTEND Internal Medicine
DX: U07.1 COVID-19 (principal)

== ENCOUNTER 2020-10-17 08:57 | Observation (INO) | payer MEDICARE ==
[~2020-10-17] VITALS: Ht 180 cm; Wt 97.2 kg
[~2020-10-17 08:57] MED LIST changes: -ASPI-1238 PO; -BAMLANIVIMAB 700 MG in NS 200 ML IV ONE; -CHOL100048 PO; -EPINEPHrine INJECTION 1 MG/ML AMP IM PRN; -GABA300C PO; -diphenhydrAMINE 50 MG/ML INJ (BENADRYL) IV PRN
[2020-10-17 09:40] LABS: BASOPHILS % (AUTO) 0 % (0-10); HEMOGLOBIN 15.1 g/dL (13.3-17.7); MEAN CORPUSCULAR VOLUME 96 fL (80-99); MEAN PLATELET VOLUME 10.5 fL (9.0-12.2)
[2020-10-17 09:42] LABS: EOSINOPHILS % (AUTO) 0 % (0-10); HEMATOCRIT 46 % (40-54); LYMPHOCYTES # (AUTO) 3.4 10^3/uL (1.0-4.0); LYMPHOCYTES % (AUTO) 47 % (12-44); MEAN CORPUSCULAR HEMOGLOBIN 32 pg (25-34); MEAN CORPUSCULAR HGB CONC 33 g/dL (32-36); MONOCYTES # (AUTO) 0.6 10^3/uL (0.0-1.0); MONOCYTES % (AUTO) 8 % (0-12); NEUTROPHILS # (AUTO) 3.3 10^3/uL (1.8-7.8); NEUTROPHILS % (AUTO) 45 % (42-75); PLATELET COUNT 70 10^3/uL (130-400); WHITE BLOOD COUNT 7.3 10^3/uL (4.3-11.0)
[2020-10-17 09:52] LABS: ALBUMIN 3.9 GM/DL (3.2-4.5)
[2020-10-17 09:53] LABS: CHLORIDE 104 MMOL/L (98-107); INR 1.1 (0.8-1.4); POTASSIUM 3.9 MMOL/L (3.6-5.0); PROTHROMBIN TIME PATIENT 14.8 SEC (12.2-14.7); SODIUM 135 MMOL/L (135-145)
[2020-10-17 09:54] LABS: CALCIUM 8.5 MG/DL (8.5-10.1)
[2020-10-17 09:55] LABS: GLUCOSE 168 MG/DL (70-105); TOTAL PROTEIN 6.6 GM/DL (6.4-8.2)
[2020-10-17 09:56] LABS: CARBON DIOXIDE 20 MMOL/L (21-32)
[2020-10-17 09:57] LABS: BILIRUBIN,TOTAL 1.8 MG/DL (0.1-1.0)
[2020-10-17 09:59] LABS: ALKALINE PHOSPHATASE 47 U/L (40-136); CREATININE SERUM 1.03 MG/DL (0.60-1.30); GFR ESTIMATED > 60
[2020-10-17 10:00] LABS: BUN/CREATININE RATIO 15
--- NOTE | 2020-10-17 10:00 | NUR ---
TALKED WITH PT'S ON THE PHONE.
[2020-10-17 10:02] LABS: ALANINE AMINOTRANSFERASE 19 U/L (0-55); MAGNESIUM 1.9 MG/DL (1.6-2.4)
--- NOTE | 2020-10-17 10:08 | Diagnostic Imaging Report ---
INDICATION: Chest pain. EXAMINATION: Portable chest at 09:48 a.m. FINDINGS: There is a dual-chamber pacemaker. Heart size and pulmonary vascularity are normal. Lungs are clear. There are no effusions or pneumothoraces. IMPRESSION: No acute abnormalities in the chest. Dictated by: Dictated on workstation # [id number]
[2020-10-17] MEDS ORDERED: IOHEXOL 350 MG/ML 100 ML (OMNIPAQUE 350) VIAL IV ONE (10:45)
[2020-10-17] MEDS ORDERED: HOLD METFORMIN - RECEIVED CONTRAST 20 ML VIAL IV SCH (10:45)
[2020-10-17] MEDS ORDERED: NS 100 ML (IVPB) BAG IV ONE (10:45)
[2020-10-17] MEDS ORDERED: CATHETER FLUSH 10 ML SYR IV PRN ×2 (10:45→14:45)
--- NOTE | 2020-10-17 11:00 | NUR ---
RESTING IN BED. NOTIFIED OF BLOOD DRAW AT [address]. DENIES NEEDS AT THIS TIME.
--- NOTE | 2020-10-17 11:44 | NUR ---
oxygen turned off et will continue to monitor.
--- NOTE | 2020-10-17 11:52 | Diagnostic Imaging Report ---
PROCEDURE: CT angiography of the chest with contrast. TECHNIQUE: Multiple contiguous axial images were obtained through the chest after uneventful bolus administration of intravenous contrast. 3D reconstructed CTA MIP acquisitions were also performed. Auto Exposure Controls were utilized during the CT exam to meet ALARA standards for radiation dose reduction. INDICATION: COVID patient, shortness of air. FINDINGS: The pulmonary arterial branches are widely patent. No filling defect. No PE. The thoracic aorta is nonaneurysmal. This patient has small nonloculated bilateral pleural effusions to a depth of 2 cm maximal. There is mild enlargement of the heart. There are coronary arterial atherosclerotic vascular calcifications. There is mild prominence of the pulmonary venous structures. There is some mild septal thickening and mild infrahilar and basilar groundglass densities, the latter could reflect viral pneumonia or pulmonary edema in the setting of failure, correlate clinically. There is no pneumothorax. The visualized upper abdomen shows a partially visualized at least mildly enlarged spleen and a small hiatal hernia. Benign calcified granulomatous disease in the thoracic lymph nodes noted. IMPRESSION: 1. Negative for PE. 2. Small pleural effusions, cardiomegaly, and vascular distention. Septal thickening and basilar groundglass densities could reflect edema or viral infectious etiologies. Dictated by: Dictated on workstation # [id number]
--- NOTE | 2020-10-17 12:44 | NUR ---
CALLED AND UPDATED PT'S ON THE PHONE.
--- NOTE | 2020-10-17 13:06 | ED Respiratory ---
General Chief Complaint: Respiratory Problems Stated Complaint: COVID +, SOB Nursing Triage Note: AMBULATED TO ROOM 10 IN [facility] PERCATUTIONS ET IN RESP DISTRESS. RECIEVED BAM TREATMENT YESTERDAY. STATES HE IS MORE SOA TODAY THEN HE HAS BEEN. Source: patient, old records Exam Limitations: no limitations History of Present Illness Date Seen by Provider: Oct 17, 2020 Time Seen by Provider: 09:00 Initial Comments This 85-year-old gentleman presents to the emergency room with fairly abrupt onset of exacerbation of shortness of breath this morning. He was diagnosed with Covid several days ago and received a Bamlanivimab infusion yesterday. He is not hypoxic or tachycardic on assessment. He is extremely short of breath and appears in distress. He has been afebrile. He is able to ambulate to the room on his own power. Initially he reported no chest pain. However, he later stated a brief episode of sharp left-sided chest pain at around 06:[address] Killian is his primary care provider and Dr. Sarabia is his software recruiter. He did take his medications this morning. Allergies and Home Medications Allergies Coded Allergies: amoxicillin (Verified Allergy, Unknown, 01/16/10) Home Medications Alfuzosin HCl 10 Mg Tab.er.24h, 10 MG PO 1800, (Reported) Aspirin 81 Mg Tablet.dr, 81 MG PO DAILY, (Reported) Cholecalciferol (Vitamin D3) 25 Mcg Capsule, 25 MCG PO DAILY, (Reported) Clopidogrel Bisulfate 75 Mg Tablet, 75 MG PO 1200, (Reported) Enalapril Maleate 10 Mg Tablet, 10 MG PO BID, (Reported) Ferrous Sulfate 325 Mg Tablet, 325 MG PO DAILY, (Reported) Folic Acid 1 Mg Tablet, 1 MG PO 1200, (Reported) Gabapentin 300 Mg Capsule, 300 MG PO HS, (Reported) Metoprolol Succinate 100 Mg Tab.er.24h, 100 MG PO BID, (Reported) [place] 3 Polyunsat Fatty Acids 1,000 Mg Cap, 1,000 MG PO TID, (Reported) Pantoprazole Sodium 40 Mg Tablet.dr, 40 MG PO DAILY, (Reported) Simvastatin 20 Mg Tablet, 20 MG PO 1200, (Reported) Zinc Amino Acid Chelate 50 Mg Tablet, 50 MG PO 1800, (Reported) Patient Home Medication List Home Medication List Reviewed: Yes Review of Systems Review of Systems Constitutional: no symptoms reported EENTM: no symptoms reported Respiratory: see HPI Cardiovascular: see HPI Gastrointestinal: no symptoms reported Genitourinary: no symptoms reported Musculoskeletal: no symptoms reported Skin: no symptoms reported Psychiatric/Neurological: No Symptoms Reported Hematologic/Lymphatic: No Symptoms Reported Immunological/Allergic: no symptoms reported Past Ppmccms-Vecpwi-Wvffcx Hx Past Med/Social Hx: Reviewed Nursing Past Med/Soc Hx Patient Social History Alcohol Use: Denies Use Smoking Status: Never a Smoker Type Used: Cigars Former Smoker, Quit: Jun 12, 1967 2nd Hand Smoke Exposure: No Recent Infectious Disease Expo: No Recent Hopitalizations: No Immunizations Up To Date Tetanus Booster (TDap): Unknown PED Vaccines UTD: Yes Date of Pneumonia Vaccine: Jun 17, 2015 Date of Influenza Vaccine: Jun 29, 2019 Seasonal Allergies Seasonal Allergies: Yes Past Medical History Surgeries: Yes (INGUINAL HERNIA X2, COLON RESECTION, BACK, PACEMAKER) Orthopedic Respiratory: Yes (COVID-September 2020) Currently Using CPAP: No Currently Using BIPAP: No Cardiac: Yes (HX SMALL HEART ATTACK, 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, pacemaker) Hypertension Neurological: No Reproductive Disorders: No Sexually Transmitted Disease: No HIV/AIDS: No Gastrointestinal: Yes (COLON CANCER, HX INTESTIONAL ABCESS) Gastroesophageal Reflux Musculoskeletal: Yes (LUMBAR STENOSIS) Chronic Back Pain Endocrine: No Loss of Vision: Bilateral Hearing Impairment: Denies Cancer: Yes Colon What Type of Treatment Did You: Surgical Intervention Psychosocial: No Integumentary: No Blood Disorders: No Adverse Reaction/Blood Tranf: No Family Medical History No Pertinent Family Hx Physical Exam Vital Signs - First Documented 10/17/20 09:10 Temp 36.3 Pulse 95 Resp 24 B/P (MAP) 119/ Pulse Ox 94 O2 Delivery Nasal Cannula O2 Flow Rate 2.00 Capillary Refill : Less Than 3 Seconds Height: 5'11.00" Weight: 214lbs. 0.0oz. 97.708801fr; 29.00 BMI Method:Stated General Appearance: WD/WN, moderate distress (Respiratory) HEENT: PERRL/EOMI, normal ENT inspection Neck: normal inspection Respiratory: lungs clear, normal breath sounds, other (Tachypnea with appearance of respiratory distress despite unremarkable vital signs) Cardiovascular: regular rate, rhythm, no edema, no murmur Gastrointestinal: normal bowel sounds, non tender, soft Extremities: normal inspection, no pedal edema Neurologic/Psychiatric: caterpillar mechanic II-XII nml as tested, no motor/sensory deficits, alert, normal mood/affect, oriented x 3 Skin: normal color, warm/dry Progress/Results/Core Measures Suspected Sepsis Recent Fever Within 48 Hours: No Infection Criteria Present: Documented Infection New/Unexplained Altered Menta: No Sepsis Screen: Possible Severe Sepsis Risk SIRS Temperature: Pulse: 95 Respiratory Rate: 24 Laboratory Tests 10/17/20 09:30: White Blood Count 7.3 Blood Pressure 119 / Mean: Laboratory Tests 10/17/20 09:30: Creatinine 1.03, INR Comment 1.1, Platelet Count 70L, Total Bilirubin 1.8H Results/Orders Lab Results Laboratory Tests Test 10/17/20 09:30 10/17/20 11:40 Range/Units White Blood Count 7.3 4.3-11.0 10^3/uL Red Blood Count 4.75 4.30-5.52 10^6/uL Hemoglobin 15.1 13.3-17.7 g/dL Hematocrit 46 40-54 % Mean Corpuscular Volume 96 80-99 fL Mean Corpuscular Hemoglobin 32 25-34 pg Mean Corpuscular Hemoglobin Concent 33 32-36 g/dL Red Cell Distribution Width 11.8 10.0-14.5 % Platelet Count 70 L 130-400 10^3/uL Mean Platelet Volume 10.5 9.0-12.2 fL Immature Granulocyte % (Auto) 0 % Neutrophils (%) (Auto) 45 42-75 % Lymphocytes (%) (Auto) 47 H 12-44 % Monocytes (%) (Auto) 8 0-12 % Eosinophils (%) (Auto) 0 0-10 % Basophils (%) (Auto) 0 0-10 % Neutrophils # (Auto) 3.3 1.8-7.8 10^3/uL Lymphocytes # (Auto) 3.4 1.0-4.0 10^3/uL Monocytes # (Auto) 0.6 0.0-1.0 10^3/uL Eosinophils # (Auto) 0.0 0.0-0.3 10^3/uL Basophils # (Auto) 0.0 0.0-0.1 10^3/uL Immature Granulocyte # (Auto) 0.0 0.0-0.1 10^3/uL Prothrombin Time 14.8 H 12.2-14.7 SEC INR Comment 1.1 0.8-1.4 Activated Partial Thromboplast Time 32 24-35 SEC D-Dimer 0.90 H 0.00-0.49 UG/ML Sodium Level 135 135-145 MMOL/L Potassium Level 3.9 3.6-5.0 MMOL/L Chloride Level 104 98-107 MMOL/L Carbon Dioxide Level 20 L 21-32 MMOL/L Anion Gap 11 5-14 MMOL/L Blood Urea Nitrogen 15 7-18 MG/DL Creatinine 1.03 0.60-1.30 MG/DL Estimat Glomerular Filtration Rate > 60 BUN/Creatinine Ratio 15 Glucose Level 168 H 70-105 MG/DL Calcium Level 8.5 8.5-10.1 MG/DL Corrected Calcium 8.6 8.5-10.1 MG/DL Magnesium Level 1.9 1.6-2.4 MG/DL Total Bilirubin 1.8 H 0.1-1.0 MG/DL Aspartate Amino Transf (AST/SGOT) 29 5-34 U/L Alanine Aminotransferase (ALT/SGPT) 19 0-55 U/L Alkaline Phosphatase 47 40-136 U/L Lactate Dehydrogenase 300 H 125-220 U/L Myoglobin 227.2 H 10.0-92.0 NG/ML Troponin I 0.036 H 0.043 H <0.028 NG/ML C-Reactive Protein High Sensitivity 4.85 H 0.00-0.50 MG/DL B-Type Natriuretic Peptide 346.2 H <100.0 PG/ML Total Protein 6.6 6.4-8.2 GM/DL Albumin 3.9 3.2-4.5 GM/DL Procalcitonin 0.05 <0.10 NG/ML My Orders Orders - DANELLE STEVE MD Fibrin Degradation Products (10/17/20 09:29) Procalcitonin (Pct) (10/17/20 09:29) Hs C Reactive Protein (10/17/20:29) LDH (10/17/20:29) Cbc With Automated Diff (10/17/20:) Magnesium (10/17/20 09:29) Chest 1 View, Ap/Pa Only (10/17/20:) Ekg Tracing (10/17/20:) Comprehensive Metabolic Panel (10/17/20 09:29) Myoglobin Serum (10/17/20 09:29) Protime With Inr (10/17/20 09:29) Partial Thromboplastin Time (10/17/20 09:29) O2 (10/17/20 09:29) Monitor-Rhythm Ecg Trace Only (10/17/20 09:29) Lipid Panel (10/18/20 06:00) Ed Iv/Invasive Line Start (10/17/20 09:29) BNP (10/17/20 09:29) Troponin I (10/17/20 09:29) Ct Angio Chest W (10/17/20 10:32) Troponin I (10/17/20 11:30) Iohexol Injection (Omnipaque 350 Mg/Ml 1 (10/17/20 10:45) Received Contrast (Hold Metformin- Contr (10/17/20 10:45) Sodium Chloride Flush (Catheter Flush Sy (10/17/20 10:45) Ns (Ivpb) (Sodium Chloride 0.9% Ivpb Bag (10/17/20 10:45) Medications Given in ED Current Medications Medications Dose Ordered Sig/Carli Route Start Time Stop Time Status Last Admin Dose Admin Iohexol 75 ml ONCE ONCE IV 10/17/20 10:45 10/17/20 10:46 DC 10/17/20 11:38 81 ML Sodium Chloride 10 ml NEEDED PRN IV 10/17/20 10:45 10/17/20 14:34 DC 10/17/20 11:38 10 ML Sodium Chloride 100 ml ONCE ONCE IV 10/17/20 10:45 10/17/20 10:46 DC 10/17/20 11:38 80 ML Vital Signs/I&O 10/17/20 10/17/20 09:10 09:10 Temp 36.3 Pulse 95 Resp 24 B/P (MAP) 119/ Pulse Ox 94 94 O2 Delivery Nasal Cannula Room Air O2 Flow Rate 2.00 Capillary Refill : Less Than 3 Seconds Progress Note : Time: 13:03 Progress Note Patient was placed on oxygen for comfort although he was never hypoxic. After while this was removed and he passed a trial on room air. Oxygen saturation stayed 92% and above. D-dimer was elevated and CT angiogram of the chest was obtained. No PE was identified. Troponin was minimally elevated. This was repeated 2 hours later and was trending upward. Case was discussed with Dr. Ulrich who requested admission to the hospitalist service. Patient remained stable. We discussed CODE STATUS. He would not like any cardiac resuscitation but would like ventilator therapy if necessary on a short-term basis only. ECG Initial ECG Impression Date: Oct 17, 2020 Initial ECG Impression Time: 09:33 Initial ECG Rate: 74 Comment Paced rhythm with no ST elevation or depression appreciated. Diagnostic Imaging Diagonstic Imaging: Xray Plain Films/CT/US/NM/MRI: chest Comments NAME: MIS VALDES [facility] REC#: [id number] PT STATUS: REG ER : 1935 PHYSICIAN: DANELLE STEVE MD ADMIT DATE: 10/17/20/ER Signed Date of Exam:10/17/20 CHEST 1 VIEW, AP/PA ONLY INDICATION: Chest pain. EXAMINATION: Portable chest at 09:48 a.m. FINDINGS: There is a dual-chamber pacemaker. Heart size and pulmonary vascularity are normal. Lungs are clear. There are no effusions or pneumothoraces. IMPRESSION: No acute abnormalities in the chest. Dictated by: Dictated on workstation # [id number] Dict: 10/17/20 1000 Trans: 10/17/20 1107 AS6 [id number] Interpreted by: RADHA COLE MD Electronically signed by: RADHA COLE MD 10/17/20 1107 Reviewed: Reviewed by Me Diagonstic Imaging: CT Plain Films/CT/US/NM/MRI: chest Comments NAME: MIS VALDES [facility] REC#: [id number] PT STATUS: ADM Joan : 1935 PHYSICIAN: DANELLE STEVE MD ADMIT DATE: 10/17/20/4TH Signed Date of Exam:10/17/20 CT ANGIO CHEST W PROCEDURE: CT angiography of the chest with contrast. TECHNIQUE: Multiple contiguous axial images were obtained through the chest after uneventful bolus administration of intravenous contrast. 3D reconstructed CTA MIP acquisitions were also performed. Auto Exposure Controls were utilized during the CT exam to meet ALARA standards for radiation dose reduction. INDICATION: COVID patient, shortness of air. FINDINGS: The pulmonary arterial branches are widely patent. No filling defect. No PE. The thoracic aorta is nonaneurysmal. This patient has small nonloculated bilateral pleural effusions to a depth of 2 cm maximal. There is mild enlargement of the heart. There are coronary arterial atherosclerotic vascular calcifications. There is mild prominence of the pulmonary venous structures. There is some mild septal thickening and mild infrahilar and basilar groundglass densities, the latter could reflect viral pneumonia or pulmonary edema in the setting of failure, correlate clinically. There is no pneumothorax. The visualized upper abdomen shows a partially visualized at least mildly enlarged spleen and a small hiatal hernia. Benign calcified granulomatous disease in the thoracic lymph nodes noted. IMPRESSION: 1. Negative for PE. 2. Small pleural effusions, cardiomegaly, and vascular distention. Septal thickening and basilar groundglass densities could reflect edema or viral infectious etiologies. Dictated by: Dictated on workstation # [id number] Dict: 10/17/20 1143 Trans: 10/17/20 1530 AS6 [id number] Interpreted by: ZAHRAA MENDIOLA Electronically signed by: ZAHRAA MENDIOLA 10/17/20 1530 Reviewed: Reviewed by Me Departure Communication (Admissions) Time/Spoke to Admitting Phy: 12:50 Dr. Solorio Time/Spoke to Consulting Phy: 12:40 Dr. Ulrich Impression Primary Impression: Chest pain Qualified Codes: R07.9 - Chest pain, unspecified Additional Impressions: Elevated troponin COVID-19 Dyspnea Qualified Codes: R06.00 - Dyspnea, unspecified Disposition: ADMITTED INPATIENT Condition: Improved Admissions Decision to Admit Reason: Admit from ER (General) Decision to Admit/Date: Oct 17, 2020 Time/Decision to Admit Time: 12:30 Departure-Patient Inst. Referrals: ARMINDA KILLIAN MD (PCP/Family) Primary Care Physician DANELLE STEVE MD Oct 17, 2020 13:06
--- NOTE | 2020-10-17 14:20 | Consultation-Cardiology ---
HPI-Cardiology Cardiology Consultation: Date of Consultation 10/17/20 Time Seen by a Provider: 14:00 Date of Admission 10-17-20 Attending Physician Marci Solorio MD Admitting Physician Draagn Killian MD Consulting Physician Chandrakant Juan MD Primary Tank House Operator: Dr. Sarabia HPI: Chief Complaint: Elevated troponin Mr. Day is an 85 yr old male admitted to 432 from the ED with increasing SOB. He tested COVID (+) and received out pt BAM infusion on 10-16-20. He states this morning his SOB became worse. He states he sleeps in his recliner at night. He reports this morning he had one episode of sharp, left sided, localized, chest pain which lasted for approx 3 seconds. He has not had any further episodes since. He reports frequent cough for the last several days that is not productive. No c/o palpitations, syncope or near syncope. No c/o LE swelling. He does not report any n/v/d. He reports poor appetite. He continues to feel SOB, stating it does not feel any better than yesterday. Review of Systems-Cardiology Review of Systems Constitutional: No chills, No fever; malaise, tiredness Eyes: No vision change Ears/Nose/Throat: No epistaxis, No recent hearing loss, No ulcerations Respiratory: As described under HPI Cardiovascular: As described under HPI Gastrointestinal: No constipation, No diarrhea; nausea; No vomiting Genitourinary: No dysuria, No hematuria Musculoskeletal: no symptoms reported Skin: No rash on exposed areas, No ulcerations on exposed areas Psychiatric/Neurological: No anxiety, No depression, No seizure, No focal weakness, No syncope Hematologic: No bleeding abnormalities PZA-Djurhd-Xkcbnd Hx Patient Social History Smoking Status: Never a Smoker Former smoker/When Quit: Sep 29, 1959 2nd Hand Smoke Exposure: No Have you traveled recently?: No Alcohol Use?: No Pt feels they are or have been: No Immunizations Up To Date Tetanus Booster (TDap): Unknown Date of Pneumonia Vaccine: Jun 17, 2015 Date of Influenza Vaccine: Jun 29, 2019 Past Medical History PMH As described under Assessment. Family Medical History Family Medical History: Reported family h/o father having CAD and mother having HTN. Allergies and Home Medications Allergies Coded Allergies: amoxicillin (Verified Allergy, Unknown, 01/16/10) Home Medications Alfuzosin HCl 10 Mg Tab.er.24h, 10 MG PO 1800, (Reported) Aspirin 81 Mg Tablet.dr, 81 MG PO DAILY, (Reported) Cholecalciferol (Vitamin D3) 25 Mcg Capsule, 25 MCG PO DAILY, (Reported) Clopidogrel Bisulfate 75 Mg Tablet, 75 MG PO 1200, (Reported) Enalapril Maleate 10 Mg Tablet, 10 MG PO BID, (Reported) Ferrous Sulfate 325 Mg Tablet, 325 MG PO DAILY, (Reported) Folic Acid 1 Mg Tablet, 1 MG PO 1200, (Reported) Gabapentin 300 Mg Capsule, 300 MG PO HS, (Reported) Metoprolol Succinate 100 Mg Tab.er.24h, 100 MG PO BID, (Reported) [place] 3 Polyunsat Fatty Acids 1,000 Mg Cap, 1,000 MG PO TID, (Reported) Pantoprazole Sodium 40 Mg Tablet.dr, 40 MG PO DAILY, (Reported) Simvastatin 20 Mg Tablet, 20 MG PO 1200, (Reported) Zinc Amino Acid Chelate 50 Mg Tablet, 50 MG PO 1800, (Reported) Patient Home Medication List Home Medication List Reviewed: Yes Physical Exam-Cardiology Physical Exam Vital Signs/I&O 10/17/20 10/17/20 10/17/20 10/17/20 09:10 09:10 13:35 14:16 Temp 36.3 Pulse 95 59 Resp 24 16 B/P (MAP) 119/ 171/102 Pulse Ox 94 94 92 96 O2 Delivery Nasal Cannula Room Air Room Air Room Air O2 Flow Rate 2.00 10/17/20 10/17/20 15:49 16:10 Temp 36.2 Pulse 64 71 Resp 24 B/P (MAP) 141/78 (99) Pulse Ox 94 O2 Delivery Room Air Capillary Refill : Less Than 3 Seconds Constitutional: AAO x 3, well-developed, well-nourished HEENT: PERRL, hard of hearing, oral hygience is good Neck: No carotid bruit; carotid pulses are 2 + bilaterally Respiratory: No accessory muscle use, No respiratory distress; chest expansion is symmetric, chest is bilaterally symmetric, other (diminished breathsounds bialt) Cardiovascular: regular rate-rhythm; No JVD; S1 and S2 Gastrointestinal: No tender; soft, round, audible bowel sounds Extremities: no lower extremity edema bilateral Neurologic/Psychiatric: grossly intact (moves all extremities) Skin: No rash on exposed areas, No ulcerations on exposed areas Data Review Labs Laboratory Tests 10/17/20 09:30: White Blood Count 7.3, Red Blood Count 4.75, Hemoglobin 15.1, Hematocrit 46, Mean Corpuscular Volume 96, Mean Corpuscular Hemoglobin 32, Mean Corpuscular Hemoglobin Concent 33, Red Cell Distribution Width 11.8, Platelet Count 70L, Mean Platelet Volume 10.5, Immature Granulocyte % (Auto) 0, Neutrophils (%) (Auto) 45, Lymphocytes (%) (Auto) 47H, Monocytes (%) (Auto) 8, Eosinophils (%) (Auto) 0, Basophils (%) (Auto) 0, Neutrophils # (Auto) 3.3, Lymphocytes # (Auto) 3.4, Monocytes # (Auto) 0.6, Eosinophils # (Auto) 0.0, Basophils # (Auto) 0.0, Immature Granulocyte # (Auto) 0.0, Prothrombin Time 14.8H, INR Comment 1.1, Acti vated Partial Thromboplast Time 32, D-Dimer 0.90H, Sodium Level 135, Potassium Level 3.9, Chloride Level 104, Carbon Dioxide Level 20L, Anion Gap 11, Blood Urea Nitrogen 15, Creatinine 1.03, Estimat Glomerular Filtration Rate > 60, BUN/Creatinine Ratio 15, Glucose Level 168H, Calcium Level 8.5, Corrected Calcium 8.6, Magnesium Level 1.9, Total Bilirubin 1.8H, Aspartate Amino Transf (AST/SGOT) 29, Alanine Aminotransferase (ALT/SGPT) 19, Alkaline Phosphatase 47, Lactate Dehydrogenase 300H, Myoglobin 227.2H, Troponin I 0.036H, C-Reactive Protein High Sensitivity 4.85H, B-Type Natriuretic Peptide 346.2H, Total Protein 6.6, Albumin 3.9, Procalcitonin 0.05 10/17/20 11:40: Troponin I 0.043H 10/17/20 17:33: Troponin I 0.039H Radiology NAME: MIS DAY [facility] REC#: [id number] PT STATUS: REG ER : 1935 PHYSICIAN: DANELLE STEVE MD ADMIT DATE: 10/17/20/ER Draft Date of Exam:10/17/20 CT ANGIO CHEST W PROCEDURE: CT angiography of the chest with contrast. TECHNIQUE: Multiple contiguous axial images were obtained through the chest after uneventful bolus administration of intravenous contrast. 3D reconstructed CTA MIP acquisitions were also performed. Auto Exposure Controls were utilized during the CT exam to meet ALARA standards for radiation dose reduction. INDICATION: COVID patient, shortness of air. FINDINGS: The pulmonary arterial branches are widely patent. No filling defect. No PE. The thoracic aorta is nonaneurysmal. This patient has small nonloculated bilateral pleural effusions to a depth of 2 cm maximal. There is mild enlargement of the heart. There are coronary arterial atherosclerotic vascular calcifications. There is mild prominence of the pulmonary venous structures. There is some mild septal thickening and mild infrahilar and basilar groundglass densities, the latter could reflect viral pneumonia or pulmonary edema in the setting of failure, correlate clinically. There is no pneumothorax. The visualized upper abdomen shows a partially visualized at least mildly enlarged spleen and a small hiatal hernia. Benign calcified granulomatous disease in the thoracic lymph nodes noted. IMPRESSION: 1. Negative for PE. 2. Small pleural effusions, cardiomegaly, and vascular distention. Septal thickening and basilar groundglass densities could reflect edema or viral infectious etiologies. Dictated on workstation # [id number] Dict: 10/17/20 1143 Trans: 10/17/20 1156 AS6 [id number] Interpreted by: ZAHRAA MENDIOLA Electronically signed by: NAME: MIS DAY [facility] REC#: [id number] PT STATUS: REG ER : 1935 PHYSICIAN: DANELLE STEVE MD ADMIT DATE: 10/17/20/ER Signed Date of Exam:10/17/20 CHEST 1 VIEW, AP/PA ONLY INDICATION: Chest pain. EXAMINATION: Portable chest at 09:48 a.m. FINDINGS: There is a dual-chamber pacemaker. Heart size and pulmonary vascularity are normal. Lungs are clear. There are no effusions or pneumothoraces. IMPRESSION: No acute abnormalities in the chest. Dictated by: Dictated on workstation # [id number] Dict: 10/17/20 1000 Trans: 10/17/20 1107 AS6 [id number] Interpreted by: RADHA COLE MD Electronically signed by: RADHA COLE MD 10/17/20 1107 A/P-Cardiology Assessment/Admission Diagnosis COVID (+) s/p BAM infusion on 10-16-20 Chest pain of undetermined etiology - one episode - no further c/o Mildly elevated troponin likely Type 2 WI secondary to transient hypoxia Coronary artery disease, most recent cardiac catheterization done June 17, [address] Sarabia revealed mild coronary ectasia with slow flow in coronaries due to small vessel disease, normal LVEDP Echocardiogram of Jun 27, [address] Sarabia showed LVEF 55-65%. Grade 1 diastolic dysfunction. PASP 25-30mmHg NSVT-patient had episode of nonsustained ventricular tachycardia on his pacemaker interrogation on September 23, 2018 while asleep. Sleep study November 2018 revealing sleep apnea. Uses CPAP Chronic diastolic congestive heart failure Mild nonobstructive carotid artery stenosis-most recent carotid duplex done July [address] Sarabia Hypertension Hyperlipidemia Complete heart block, history of permanent pacemaker implantation, status post generator replacement done on August 05, [address] Sarabia using [facility] [id number],continue to monitor. Pulmonary hypertension BLANCHE, uses CPAP Discussion and Recomendations Management of COVID (+) pneumonia per medical/pulmonary services Continue antihypertenisve regimen Continue ASA tx Monitor lab closely Further recs will be based on his hospital course We would like to thank medical services for this consult Physician Assessment Physician Assessment Out assessment and plan is as outline above Conservative management unless there are unstable symptoms and/or distinct evidence of type 1 [place] CHILO ROMANO DECORATING EQUIPMENT SETTER Oct 17, 2020 14:20 CHANDRAKANT JUAN MD FACP FAC CCDS Oct 17, 2020 18:58
--- NOTE | 2020-10-17 14:23 | NUR ---
MIS VALDES admitted to room 432-1, with an admitting diagnosis of CHEST PAIN, on 10/17/20 from ED via WHEELCHAIR, accompanied by ED RN. MIS VALDES introduced to surroundings, call light, bed controls, phone, TV, temperature control, lights, meal times, smoking policy, visitor policy, side rail policy, bathrooms and showers. Patient Rights given to patient in the handbook. MIS VALDES verbalizes understanding that [facility] is not responsible for the loss or damage to any personal effects or valuables that are kept in the patients possession during their hospitalization. The following Patient Care Plans were discussed with the PATIENT: Discharge Planning, PNEUMONIA, CHEST PAIN and KNOWLEDGE DEFICIT. MIS VALDES verbalizes understanding of Interdisciplinary Patient Education. Patient and/or family were informed about the Rapid Response Team and its purpose.
[2020-10-17] MEDS ORDERED: ASPIRIN 81 MG CHEW (CHILDREN'S ASA) PO ONE (14:30)
[2020-10-17] MEDS ORDERED: morphine INJ 4 MG/ML 1 ML (VIAL/SYRINGE) IV PRN (14:45)
[2020-10-17] MEDS ORDERED: ONDANSETRON 4 MG/2 ML (SDV) Z0FRAN IVP PRN (14:45)
[2020-10-17] MEDS ORDERED: NITROGLYCERIN 0.4 MG SL TABS BTL 25'S SL PRN (14:45)
[2020-10-17] MEDS ORDERED: ONDANSETRON 4 MG/2 ML (SDV) Z0FRAN IV PRN (14:45)
[2020-10-17] MEDS ORDERED: GABA300C PO (14:59)
[2020-10-17] MEDS ORDERED: ASPI-1238 PO (14:59)
[2020-10-17] MEDS ORDERED: CHOL100048 PO (14:59)
--- NOTE | 2020-10-17 15:39 | NUR ---
SPOKE WITH THE PTS (THIERRY), WHEN THRU HIS HOME MED BOTTLES WELL A HOME MEDS LIST AND WENT OVER THE EXT MED HISTORY TO COMPLETE THE MED REC THERE IS A DETAILED MED LIST IN THE PTS HOME DUFFLE BAG- THE DIRECTIONS SHOWN ON THE LIST MATCH THE EXT MED HISTORY. I SPOKE BRIEFLY WITH THE PTS WHO TOLD ME EVERYTHING ON THE LIST SHE SENT ME IS CORRECT. OTC MEDS: ASPIRIN 81MG VIT D3 FISH OIL ZINC
[2020-10-17 15:49] VITALS: BP 141/78
[2020-10-17] MEDS ORDERED: TAMSULOSIN 0.4 MG (FLOMAX) CAP PO SCH (18:00)
[2020-10-17 19:34] VITALS: BP 130/82
[2020-10-17] MEDS: CATHETER FLUSH 10 ML SYR IV SCH (20:09)
[2020-10-17] MEDS ORDERED: SIMvastatin 20 MG (ZOCOR) TAB PO SCH (21:00)
[2020-10-17 23:45] VITALS: BP 120/75
[2020-10-17 23:49] VITALS: BP 139/66
[2020-10-18 04:06] VITALS: BP 139/66
[2020-10-18] MEDS: CATHETER FLUSH 10 ML SYR IV SCH ×2 (05:52→15:08)
[2020-10-18 06:36] LABS: CHLORIDE 107 MMOL/L (98-107); POTASSIUM 3.9 MMOL/L (3.6-5.0); SODIUM 138 MMOL/L (135-145)
[2020-10-18 06:37] LABS: CALCIUM 8.5 MG/DL (8.5-10.1)
[2020-10-18 06:38] LABS: GLUCOSE 105 MG/DL (70-105); TRIGLYCERIDES 71 MG/DL (<150); VLDL CHOLESTEROL 14 MG/DL (5-40)
[2020-10-18 06:39] LABS: CARBON DIOXIDE 24 MMOL/L (21-32)
[2020-10-18 06:42] LABS: CREATININE SERUM 0.93 MG/DL (0.60-1.30); GFR ESTIMATED > 60
[2020-10-18 06:43] LABS: BUN/CREATININE RATIO 19; CHOLESTEROL 99 MG/DL (< 200)
[2020-10-18 06:44] LABS: HDL CHOLESTEROL 22 MG/DL (40-60)
[2020-10-18 06:45] LABS: MAGNESIUM 2.2 MG/DL (1.6-2.4)
[2020-10-18 08:27] VITALS: BP 169/78
[2020-10-18] MEDS ORDERED: CLOPIDOGREL 75 MG (PLAVIX) TABLET PO SCH (09:00)
[2020-10-18] MEDS ORDERED: PANTOPRAZOLE 40 MG (PROTONIX) TAB PO SCH (09:00)
[2020-10-18] MEDS ORDERED: ASPIRIN E.C. 81 MG (ECOTRIN) TAB PO SCH (09:00)
[2020-10-18] MEDS ORDERED: ENALAPRIL 10 MG (VASOTEC) TAB PO SCH (09:00)
[2020-10-18] MEDS ORDERED: meTOprolol SUCCINATE 100 MG (TOPROL XL) TAB PO SCH (09:00)
--- NOTE | 2020-10-18 14:31 | NUR ---
"RD ASSESSMENT PMHx: HTN; GERD; CA(colon); PT INTERACTION: Received dietary consult for MST score. Note pt is currently in COVID isolation per chart review. Note all diet information for nutrition consult is per Lydia RN, or per chart review. Lydia states current appetite appears good. Note PO intake 100% x1meal, per chart review. Lydia states no issues with n/v/c/d that she is aware of, and that his last BM was 10/16. Note pt not currently on bowel regimen per chart review. Note unable to determine recent wt hx, per chart review. Note unable to complete visual assessment d/t isolation precautions. Note BMI of 30.0 (Obese class I BMI for age). Given wt hx and PO intake, pt does not meet criteria for malnutrition per ASPEN guidelines. Est. kcal needs: 1037-3625 kcal | 15-20 kcal/kg Est. Pro needs: 78-97 g Pro | 0.8-1.0 g Pro/kg PES STATEMENT: Given current PO intake, no nutrition diagnosis at this time (NO-1.1). INTERVENTION: Continue with current diet order of 2000mg Na diet. Will continue to follow and reassess as pt needs, intake, and status change. Norma CAMARENA, MS RD LD [phone] cell"
--- NOTE | 2020-10-18 14:53 | NUR ---
Patient walked 420 feet on room air. Patient didn't need oxygen at this time. Addendum: 10/18/20 at 1453 by NILAY BAILEY RT Amended: Links added.
[2020-10-18 15:44] VITALS: BP 142/72
--- NOTE | 2020-10-18 15:49 | NUR ---
CM/SS visited with the patient for discharge planning. Plan: The patient will return to home self care. The patient did not qualify for home oxygen. CM/SS contacted the patient to assist with any further discharge needs. The patient reports that him and his are independent at home and he felt safe and ready to return. He denied any further needs.
[2020-10-18 16:26] VITALS: BP 142/72
[2020-10-18] MEDS ORDERED: NS (IVPB) 250 ML ONE (22:12)
[2020-10-18] MEDS ORDERED: AZITHROMYCIN INJECTION 500 MG/5 ML VIAL ONE (22:12)
--- NOTE | 2020-10-20 17:01 | Discharge Summary ---
Discharge Summary Hospital Course Was the Problem List Reviewed?: Yes Problems/Dx: (1) Chest pain Status: Acute Qualifiers: Qualified Codes: R07.9 - Chest pain, unspecified (2) COVID-19 Status: Acute Hospital Course Date of Admission: Oct 17, 2020 at 12:55 Admission Diagnosis: chest pain Family Physician/Provider: Arminda Laureano MD Date of Discharge: 10/20/20 Discharge Diagnosis: NSTEMI type II due to hypoxia related to COVID-19 Hospital Course: Louie Day is an 85-year-old male who presented with chest pain. He had recently been diagnosed with COVID-19. He received an outpatient infusion of Bamlanivimab the day prior to his admission. He had a mildly elevated troponin level which was thought to be due to transient hypoxia. Cardiology was consulted and assisted with his care. Conservative management was recommended. He was not requiring any supplemental oxygen and was not given any treatments for COVID-19. He underwent a home oxygen evaluation and did not require any supplemental oxygen at the time of discharge. He should follow-up with his primary care physician in a couple weeks. Labs and Pending Lab Test: Home Meds Active Reported Vitamin D3 (Cholecalciferol (Vitamin D3)) 25 Mcg Capsule 25 Mcg PO DAILY Aspirin EC (Aspirin) 81 Mg Tablet.dr 81 Mg PO DAILY Neurontin (Gabapentin) 300 Mg Capsule 300 Mg PO HS Clopidogrel (Clopidogrel Bisulfate) 75 Mg Tablet 75 Mg PO 1200 Fish Oil 1,000 mg Capsule ([place] 3 Polyunsat Fatty Acids) 1,000 Mg Cap 1,000 Mg PO TID Alfuzosin HCl ER (Alfuzosin HCl) 10 Mg Tab.er.24h 10 Mg PO 1800 Pantoprazole Sodium 40 Mg Tablet.dr 40 Mg PO DAILY Metoprolol Succinate 100 Mg Tab.er.24h 100 Mg PO BID Folic Acid 1 Mg Tablet 1 Mg PO 1200 Ferrous Sulfate 325 Mg Tablet 325 Mg PO DAILY Simvastatin 20 Mg Tablet 20 Mg PO 1200 Zinc (Zinc Amino Acid Chelate) 50 Mg Tablet 50 Mg PO 1800 Enalapril Maleate 10 Mg Tablet 10 Mg PO BID Assessment/Pt Instructions Take medications as prescribed. Follow-up with your primary care physician. Return with worsening shortness of breath, chest pain, or if you feel like you're getting worse. Discharge Planning: <30 minutes discharge planning Discharge Instructions Discharge Diet: Low Sodium Diet Activity as Tolerated: Yes Consultations cardiology Discharge Physical Examination Vital Signs Vital Signs Date Time Temp Pulse Resp B/P (MAP) Pulse Ox O2 Delivery O2 Flow Rate FiO2 10/18/20 16:26 36.6 72 18 142/72 93 Room Air 10/17/20 09:10 2.00 General Appearance: No Apparent Distress, Obese Respiratory: Lungs Clear, Normal Breath Sounds, No Respiratory Distress Cardiovascular: Regular Rate, Rhythm, No Edema, No Murmur Gastrointestinal: Normal Bowel Sounds, Non Tender, Soft Extremity: Normal Inspection, Non Tender, No Pedal Edema Skin: Normal Color, Warm/Dry Neurologic/Psychiatric: Alert, Oriented x3 Allergies: Coded Allergies: amoxicillin (Verified Allergy, Unknown, 01/16/10) Copy Copies To 1: ARMINDA LAUREANO MD Discharge Summary Date of Admission Oct 17, 2020 at 12:55 Date of Discharge Oct 18, 2020 at 16:26 Discharge Date: Oct 18, 2020 Discharge Time: 16:26 Admission Diagnosis Chest pain Consults/Procedures Consulations Cardiology Discharge Diagnosis (1) NSTEMI (non-ST elevation myocardial infarction) Status: Acute (2) COVID-19 Status: Acute TY FRY MD Oct 20, 2020 17:01
== END 2020-10-18 16:26 | disposition home or self-care (01) ==
LOC: EDUNIT# 08:57 → ER 08:58 → 4TH 12:55
PROVIDERS: ADMIT Internal Medicine; ATTEND Internal Medicine
DX: U07.1 COVID-19 (principal); I21.4 Non-ST elevation (NSTEMI) myocardial infarction; I10 Essential (primary) hypertension; K21.9 Gastro-esophageal reflux disease without esophagitis; G89.29 Other chronic pain; M54.5 Low back pain; I11.0 Hypertensive heart disease with heart failure; I50.32 Chronic diastolic (congestive) heart failure; I44.2 Atrioventricular block, complete; G47.33 Obstructive sleep apnea (adult) (pediatric); Z79.82 Long term (current) use of aspirin; Z79.899 Other long term (current) drug therapy; Z88.1 Allergy status to other antibiotic agents
CPT/HCPCS: 71045; 71275; 80048; 80053; 80061; 83615; 83735 ×2; 83874; 83880; 84145; 84484; 85025; 85379; 85610; 85730; 86141; 93005 ×2; 93041; 94761; 99284; G0378; 36415

== ENCOUNTER 2022-07-10 06:32 | Outpatient (CLI) | payer MEDICARE ==
[~2022-07-10] VITALS: Ht 180.3 cm; Wt 98.0 kg
[~2022-07-10 06:32] MED LIST changes: +ASPI-1238 PO; +CHOL100048 PO; -CIPR500T4 PO; +CIPR500T5 PO; +GABA300C PO
== END 2022-07-11 11:04 | disposition home or self-care (01) ==
LOC: PREOP 06:32
PROVIDERS: ATTEND Internal Medicine
DX: Z01.818 Encounter for other preprocedural examination (principal)

== ENCOUNTER 2022-07-19 07:17 | Day surgery (SDC) | payer MEDICARE ==
--- NOTE | 2022-07-09 03:03 | HISTORY AND PHYSICAL ---
DATE OF SERVICE: COLONOSCOPY HISTORY AND PHYSICAL DATE OF ADMISSION: 07/19/2022 HISTORY OF PRESENT ILLNESS: The patient is an 87-year-old white male seen for followup of colon cancer. He was diagnosed over [address] Marie, underwent colon resection and his last screening was in 2013. He reports that other than some stiffness, which prevents him from walking in regards to right knee with known arthritis, he voices no other complaints. He is still using the NuStep machine 30 minutes daily to make up for his lack of regular walking. He reports no bowel habit change. He has had no bright red blood per rectum, melena or abdominal pain. He denies dyspnea on exertion or chest discomfort. PHYSICAL EXAMINATION: GENERAL: Reveals a pleasant overweight white male in no acute distress. VITAL SIGNS: Weight was stable at 216.6 pounds, blood pressure 132/72. CHEST: Clear. CARDIOVASCULAR: Reveals regular rate and rhythm with a 1-2/6 systolic ejection murmur heard best at left lower sternal border without evidence of pulsus, parvus or tardus. No S3 or S4 noted. EXTREMITIES: Reveal no cyanosis, clubbing or edema. He does have some crepitus and significant valgus deformity bilaterally, worse on the right. No effusions noted. ASSESSMENT AND PLAN: 1. History of colon cancer. The patient is being set up for a surveillance colonoscopy. Prep instructions were given, and questions were answered. 2. Hypertension, under good control. 3. Osteoarthritis of the knees, right greater than left. Continue exercise via a NuStep, p.r.n. Tylenol as the patient is on blood thinner therapy for previous paroxysmal atrial fibrillation with no symptomatic recurrence, he is to hold Eliquis 48 hours prior and aspirin a week before the upcoming colonoscopy. He also has history of B12 deficiency. B12 injection was given today as well as a flu shot, and he was advised that he get the new COVID vaccination. Job ID: [id number] DocumentID: [id number] Dictated Date: 07/08/2022 09:48:16 Review Manager Date: 07/08/2022 09:57:45 Dictated By: ARMINDA LAUREANO MD [facility]
[~2022-07-19] VITALS: Ht 180.3 cm; Wt 98.0 kg
[2022-07-19] MEDS ORDERED: LACTATED RINGERS 1,000 ML IV STA (07:23)
[2022-07-19 07:36] VITALS: BP 153/80
[2022-07-19] MEDS ORDERED: PROPOFOL INJECTION 50 ML IV ONE (07:44)
--- NOTE | 2022-07-19 07:58 | Pre-Op Note & Conscious Sedat ---
Pre-Operative Progress Note Date H&P Reviewed: Jul 19, 2022 Time H&P Reviewed: 07:57 History & Physical: H&P Reviewed, Patient Examed, No changes noted Pre-Op Diagnosis: hx of colon cancer Conscious Sedation Pre-Proced ASA Score 2 For ASA 3 and 4: Consider anesthesia and medical clearance. Also, for patients with a history of failed moderate sedation consider anesthesia. Airway Lungs Heart ASA score ASA 1: a normal healthy patient ASA 2: a patient with a mild systemic disease (mid diabetes, controlled hypertension, obesity ASA 3: a patient with a severe systemic disease that limits activity (angina, COPD, prior Myocardial infarction) ASA 4: a patient with an incapacitating disease that is a constant threat to life (CHF, renal failure) ASA 5: a moribund patient not expected to survive 24 hrs. (ruptured aneurysm) ASA 6: a declared brain- patient whose organs are being harvested. For emergent operations, add the letter E after the classification Mallampati Classification Grade 2 Sedation Plan Analgesia, Amnesia, Plan communicated to team members, Discussed options with patient/fam, Discussed risks with patient/fam The patient is an appropriate candidate to undergo the planned procedure, sedation, and anesthesia. The patient immediately re-assessed prior to indication. ARMINDA LAUREANO MD Jul 19, 2022 07:58
[2022-07-19 09:03] VITALS: BP 113/59
--- NOTE | 2022-07-19 09:03 | Progress Note-Post Operative ---
Post-Procedure Note Physician (s)/Ammunition Specialist (s) Physician ARMINDA LAUREANO MD Pre-Procedure Diagnosis Pre-Procedure Diagnosis: hx of colon cancer Post-Procedure Note Findings/Procedure Note Colonoscopy was performed for surveillance purposes with a past history of colon cancer. Patient was placed in the left lateral decubitus position. Prior to undergoing colonoscopy digital rectal evaluation was performed. Anal central tone was normal and the perianal reflexes intact. Prostate is mildly enlarged and nodular on visual inspection no other abnormalities noted on digital inspection anal canal or distal rectal vault. The colonoscope was then inserted into the rectum and under direct visitation advanced the cecum. The cecum was identified by the indication of the appendiceal orifice and cecal strap. Photographic documentation was obtained. Careful dissection was made as the colonoscope was withdrawn. Quality the prep was fair. Findings There are no evidence for internal or external hemorrhoids in the rectum was unremarkable. Moderate diverticular disease confined to the sigmoid colon was present. The mid sigmoid colon the anastomotic margin was noted and unremarkable photograph was obtained. There was no evidence to suggest diverticulitis. Present in the mid ascending colon was a 4 mm sessile polyp that was photographed and biopsied and ablated with no blood loss. The remainder the descending colon was unremarkable as was the splenic flexure and transverse colon. Present in the mid a sending colon as well as cecum more 4 mm sessile polyps a 2 were biopsied and ablated with a hot forceps with no blood loss. A/P 1. 3 4 mm sessile polyps removed as noted above the forceps with no blood loss. Considering the patient's age as long as there are no surprises on histopathology will not be advocating future surveillance colonoscopy. Patient was advised to hold aspirin and Plavix for 1 more week. 2. Moderate diverticular disease confined to the sigmoid colon without evidence for diverticulitis. 3. Digital evaluation the prostate is compatible with mild BPH. Post-Procedure Diagnosis Post-operative diagnosis: colon polyps ARMINDA LAUREANO MD Jul 19, 2022 09:03
[2022-07-19 09:05] VITALS: BP 107/61
[2022-07-19 09:25] VITALS: BP 134/76
[2022-07-19 09:31] VITALS: BP 134/76
--- NOTE | 2022-07-19 10:14 | Anesthesia-General Post-Op ---
MAC Patient Condition Mental Status/LOC: Same as Preop Cardiovascular: Satisfactory Nausea/Vomiting: Absent Respiratory: Satisfactory Pain: Controlled Complications: Absent Post Op Complications Complications None Follow Up Care/Instructions Patient Instructions None needed. Anesthesiology Discharge Order Discharge Order Patient is doing well, no complaints, stable vital signs, no apparent adverse anesthesia problems. No complications reported per nursing. ALANNAH ROBLEDO CRNA Jul 19, 2022 10:14
== END 2022-07-19 09:45 | disposition home or self-care (01) ==
LOC: ENDO 07:17
PROVIDERS: ATTEND Internal Medicine
DX: Z12.11 Encounter for screening for malignant neoplasm of colon (principal); D12.0 Benign neoplasm of cecum; D12.2 Benign neoplasm of ascending colon; K63.5 Polyp of colon; N40.0 Benign prostatic hyperplasia without lower urinary tract symptoms; N40.2 Nodular prostate without lower urinary tract symptoms; K57.30 Diverticulosis of large intestine without perforation or abscess without bleeding; M17.0 Bilateral primary osteoarthritis of knee; I10 Essential (primary) hypertension; E53.9 Vitamin B deficiency, unspecified; Z85.038 Personal history of other malignant neoplasm of large intestine; Z90.49 Acquired absence of other specified parts of digestive tract; Z79.82 Long term (current) use of aspirin; Z79.01 Long term (current) use of anticoagulants; Z79.02 Long term (current) use of antithrombotics/antiplatelets; Z28.310 Unvaccinated for COVID-19

== ENCOUNTER → 2022-08-02 | Outpatient (CLI) | payer MEDICARE | LOC: CARD 09:51 | PROVIDERS: ATTEND Internal Medicine Cardiovascular Disease | DX: I11.9 Hypertensive heart disease without heart failure (principal); I35.1 Nonrheumatic aortic (valve) insufficiency | CPT/HCPCS: 93306 ==

== ENCOUNTER 2023-07-09 19:58 | Emergency (ER) | payer MEDICARE ==
[~2023-07-09] VITALS: Ht 180.3 cm; Wt 97.0 kg
[~2023-07-09 19:58] MED LIST changes: -ENAL10TA16 PO; +ENLP10T PO
--- NOTE | 2023-07-09 20:20 | ED Integumentary General ---
General Chief Complaint: Post OP Complications/Pain Stated Complaint: POST-OP BLEEDING FROM FACE Source: patient Exam Limitations: no limitations (URSULA MOORE) History of Present Illness Date Seen by Provider: Jul 09, 2023 Time Seen by Provider: 20:18 Initial Comments Patient is 88-year-old male presents ED with bleeding from his face. Patient states he had biopsy of his left and right cheek today around 1 PM. This evening started having blood coming from the face. Patient changed out bandage twice. Noted more bleeding to the left side of face. Patient had skin biopsies performed. Patient does take Plavix. Denies any fever chills nausea vomiting, diarrhea. (URSULA MOORE) Allergies and Home Medications Allergies Coded Allergies: amoxicillin (Verified Allergy, Unknown, 01/16/10) cephalexin (Unverified Allergy, Unknown, 07/10/22) Patient Home Medication List Home Medication List Reviewed: Yes (URSULA MOORE) Alfuzosin HCl (Alfuzosin HCl ER) 10 Mg Tab.er.24h, 10 MG PO 1800, (Reported) Entered as Reported by: JUWAN HIGGINS on 12/22/17 1507 Aspirin (Aspirin EC) 81 Mg Tablet.dr, 81 MG PO DAILY, (Reported) Entered as Reported by: RALEIGH BOBO on 10/17/20 1459 Cholecalciferol (Vitamin D3) (Vitamin D3) 25 Mcg Capsule, 25 MCG PO DAILY, (Reported) Entered as Reported by: RALEIGH BOBO on 10/17/20 1459 Clopidogrel Bisulfate (Clopidogrel) 75 Mg Tablet, 75 MG PO 1200, (Reported) Entered as Reported by: SATINDER COLLINS on 06/17/18 0823 Enalapril Maleate (Enalapril Maleate) 10 Mg Tablet, 10 MG PO BID, (Reported) Entered as Reported by: JOSÉ MIGUEL SÁNCHEZ on 05/29/15 1609 Ferrous Sulfate (Ferrous Sulfate) 325 Mg Tablet, 325 MG PO DAILY, (Reported) Entered as Reported by: SHO SILVA on 06/12/16 0757 Folic Acid (Folic Acid) 1 Mg Tablet, 1 MG PO 1200, (Reported) Entered as Reported by: JUWAN HIGGINS on 12/22/17 1507 Gabapentin (Neurontin) 300 Mg Capsule, 300 MG PO HS, (Reported) Entered as Reported by: RALEIGH BOBO on 10/17/20 1459 Metoprolol Succinate (Metoprolol Succinate) 100 Mg Tab.er.24h, 100 MG PO BID, (Reported) Entered as Reported by: JUWAN HIGGINS on 12/22/17 1507 [place] 3 Polyunsat Fatty Acids (Fish Oil 1,000 mg Capsule) 1,000 Mg Cap, 1,000 MG PO TID, (Reported) Entered as Reported by: SATINDER COLLINS on 06/17/18 0822 Pantoprazole Sodium (Pantoprazole Sodium) 40 Mg Tablet.dr, 40 MG PO DAILY, (R eported) Entered as Reported by: JUWAN HIGGINS on 12/22/17 1507 Simvastatin (Simvastatin) 20 Mg Tablet, 20 MG PO 1200, (Reported) Entered as Reported by: JOSÉ MIGUEL SÁNCHEZ on 05/29/15 1612 Zinc Amino Acid Chelate (Zinc) 50 Mg Tablet, 50 MG PO 1800, (Reported) Entered as Reported by: JOSÉ MIGUEL SÁNCHEZ on 05/29/15 1609 Review of Systems Review of Systems Constitutional: No chills, No diaphoresis EENTM: No ear pain, No blurred vision Respiratory: No cough, No dyspnea on exertion Cardiovascular: No chest pain Gastrointestinal: No abdominal pain, No diarrhea, No dysphagia, No nausea, No vomiting Genitourinary: No decreased output, No discharge Musculoskeletal: No back pain, No joint pain Skin: change in color (URSULA MOORE) All Other Systems Reviewed Negative Unless Noted: Yes (URSULA MOORE) Past Spjrzfa-Utbzvt-Qsczid Hx Patient Social History Tobacco Use?: No Substance use?: No Alcohol Use?: No (URSULA MOORE) Immunizations Up To Date Tetanus Booster (TDap): Unknown PED Vaccines UTD: Yes (URSULA MOORE) Seasonal Allergies Seasonal Allergies: Yes (URSULA MOORE) Past Medical History Surgeries: Yes (INGUINAL HERNIA X2, COLON RESECTION, BACK, PACEMAKER) Orthopedic Respiratory: Yes (COVID-September 2020) Sleep Apnea Currently Using CPAP: No (DOES NOT USE- CANNOT TOLERATE) Currently Using BIPAP: No Cardiac: Yes (HX SMALL HEART ATTACK, 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, pacemaker) Hypertension Neurological: No Reproductive Disorders: No Sexually Transmitted Disease: No HIV/AIDS: No Gastrointestinal: Yes (COLON CANCER, HX INTESTIONAL ABCESS) Gastroesophageal Reflux Musculoskeletal: Yes (LUMBAR STENOSIS) Chronic Back Pain Endocrine: No Loss of Vision: Bilateral Hearing Impairment: Denies Cancer: Yes Colon What Type of Treatment Did You: Surgical Intervention Psychosocial: No Integumentary: No Blood Disorders: No Adverse Reaction/Blood Tranf: No (URSULA MOORE) Family Medical History FH: colon cancer No Pertinent Family Hx (URSULA MOORE) Physical Exam Vital Signs Vital Signs - First Documented 07/09/23 20:15 Pulse 62 B/P (MAP) 148/82 (104) Pulse Ox 95 O2 Delivery Room Air (SUZI ZUÑIGA DO) Vital Signs Capillary Refill : (URSULA MOORE) General Appearance: WD/WN, no apparent distress HEENT: PERRL/EOMI, normal ENT inspection, TMs normal, pharynx normal Neck: non-tender, full range of motion, supple Cardiovascular: regular rate, rhythm, no edema, no gallop, no JVD Respiratory: chest non-tender, lungs clear, normal breath sounds, no respiratory distress, no accessory muscle use Gastrointestinal: normal bowel sounds, non tender, soft, no organomegaly Back: normal inspection, no CVA tenderness Extremities: normal range of motion, non-tender, normal inspection 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 No profuse b leeding.) (URSULA MOORE) Progress/Results/Core Measures Results/Orders Medications Given in ED Current Medications Medications Dose Ordered Sig/Carli Route Start Time Stop Time Status Last Admin Dose Admin Lidocaine/ Epinephrine 30 ml STK-MED ONCE .ROUTE 07/09/23 20:24 07/09/23 20:26 DC 07/09/23 20:30 30 ML Tranexamic Acid ONCE ONCE NA 07/09/23 21:30 07/09/23 21:31 DC 07/09/23 21:24 1,000 MG (SUZI ZUÑIGA DO) Vital Signs/I&O 07/09/23 07/09/23 20:15 22:06 Pulse 62 64 B/P (MAP) 148/82 (104) 145/77 Pulse Ox 95 94 O2 Delivery Room Air Room Air (SUZI ZUÑIGA DO) Departure Communication (PCP) Patient presents to ED with bleeding wounds to the face. Patient had biopsies for potential skin cancer of his face earlier today. Does take Plavix. Not able control bleeding at home. On arrival does have some mild bleeding to the wounds worse on the left. Biopsies are about the size of a pea. Attempted lidocaine with epinephrine with improvement of the wound to the right. Attempted Surgicel, TXA without any improvement. Did attempt cauterization with successful hemostasis. Up-to-date on his tetanus. Continue monitoring wounds at home. If bleeding does continue recommend continue direct pressure. If not able to be controlled bleeding to return back to ED. keep the bandage over the wound until tomorrow and exchange. (URSULA MOORE) Impression Primary Impression: Bleeding from wound Disposition: 01 HOME, SELF-CARE Condition: Stable Departure-Patient Inst. Decision time for Depature: 21:59 (URSULA MOORE) Referrals: ARMINDA LAUREANO MD (PCP/Family) Primary Care Physician Patient Instructions: Bleeding After Surgery Add. Discharge Instructions: Keep the bandage on the wounds until tomorrow. If continue bleeding not c ontrolled with direct pressure at home to return back to ED ATTENDING PHYSICIAN NOTE: I WAS PHYSICALLY PRESENT ER PHYSICIAN, BUT I WAS NOT INVOLVED IN ANY DECISION MAKING OR ANY CARE OF THIS PATIENT, AND I AM NOT COLLABORATING PHYSICIAN. (SUZI ZUÑIGA DO) URSULA MOORE Jul 09, 2023 20:20 SUZI ZUÑIGA DO Jul 10, 2023 01:48
[2023-07-09] MEDS ORDERED: LIDOCAINE/EPI 1%-1:200,000 (XYLOCAINE) 30 ML VIAL ONE (20:24)
[2023-07-09] MEDS ORDERED: LIDOCAINE 2% w/EPI 1:100,000 20 ML VIAL INJ ONE (20:30)
[2023-07-09] MEDS ORDERED: TRANEXAMIC ACID 100 MG/ML 10 ML INJECTION ONE (21:30)
[2023-07-09 22:06] VITALS: BP 145/77
== END 2023-07-09 22:08 | disposition home or self-care (01) ==
LOC: EDUNIT# 19:58 → ER 20:01
DX: L76.22 Postprocedural hemorrhage of skin and subcutaneous tissue following other procedure (principal); Z79.02 Long term (current) use of antithrombotics/antiplatelets; Z86.16 Personal history of COVID-19
CPT/HCPCS: 99281